=== PATIENT | female | born 1990 | race Caucasian/White ===

== ENCOUNTER 2020-01-19 09:39 | Outpatient (REF) | payer SELFPAY | END 2020-01-19 09:40 | disposition home or self-care (01) | LOC: HO.EHI 09:39 | PROVIDERS: PCP Internal Medicine Sports Medicine; Visit Provider Physician Assistant Medical | DX: Z20.1 Contact with and (suspected) exposure to tuberculosis (principal) ==

== ENCOUNTER 2020-03-04 12:05 | Outpatient (REF) | payer OTHER, SELFPAY ==
[2020-03-04 12:59] LABS: COVID-19 Test Negative (Negative); IDNOW Serial# 55D5AD1C
== END 2020-03-04 12:06 | disposition home or self-care (01) ==
LOC: HO.EMPCOV 12:05
PROVIDERS: Visit Provider Internal Medicine
DX: Z20.828 Contact with and (suspected) exposure to other viral communicable diseases (principal)
CPT/HCPCS: 87635; C9803

== ENCOUNTER 2020-03-18 14:18 | Outpatient (REF) | payer OTHER, SELFPAY ==
[2020-03-18 15:02] LABS: COVID-19 Test Negative (Negative)
== END 2020-03-18 14:19 | disposition home or self-care (01) ==
LOC: HO.EMPCOV 14:18
PROVIDERS: Visit Provider Internal Medicine
DX: Z20.828 Contact with and (suspected) exposure to other viral communicable diseases (principal)
CPT/HCPCS: 87635; C9803

== ENCOUNTER 2020-07-26 08:18 | Outpatient (REF) | payer OTHER, SELFPAY ==
--- NOTE | ~2020-07-26 | US_ITS ---
EXAMINATION: US DIAGNOSTIC ULTRASOUND BREAST, RIGHT CLINICAL INFORMATION: 29-year-old female with pain upper outer right breast and axilla 4-5 months. Also chronic palpable area 9:00 position right breast for approximately one year. No prior breast imaging. No discharge. COMPARISON: None. TECHNIQUE: Ultrasound right breast is targeted to the areas of clinical concern with imaging upper-outer quadrant and axilla. Patient is able to point to area of concern at time of imaging. Grayscale imaging and color Doppler are performed without and with harmonics. FINDINGS: There is no focal suspicious finding. There is no solid mass, architectural abnormality, duct ectasia, or edema in the soft tissue planes. No skin thickening. No lymphadenopathy. At the site of palpable concern mid 9:00 position, a tiny cyst is demonstrated measuring only 0.4 x 0.2 cm. No other ultrasound correlate in this area. Results are discussed with the patient at time of visit. Patient should be managed based on the clinical impression. If clinically indicated, further evaluation may be considered with surgical consult. US/US breast RT limited IMPRESSION: 1. No ultrasound evidence of malignancy or inflammatory changes. 2. Tiny cyst mid 9:00 position 4 x 2 mm. ASSESSMENT: BI-RADS 2: Benign RECOMMENDATION: Patient should be managed based on the clinical impression. If clinically indicated, further evaluation may be considered with surgical consult.
== END 2020-07-26 08:19 | disposition home or self-care (01) ==
LOC: HO.MAMMO 08:18
PROVIDERS: PCP Internal Medicine Sports Medicine; Visit Provider Internal Medicine Medical Oncology
DX: N64.4 Mastodynia (principal)
CPT/HCPCS: 76642

== ENCOUNTER → 2020-07-29 14:56 | Outpatient (BNVA) | payer OTHER, SELFPAY | PROVIDERS: PCP Internal Medicine Sports Medicine; Visit Provider Surgery | DX: N64.4 Mastodynia (principal); N60.11 Diffuse cystic mastopathy of right breast; N60.12 Diffuse cystic mastopathy of left breast | CPT/HCPCS: 99202 ==

== ENCOUNTER 2021-01-29 08:28 | Outpatient (REF) | payer OTHER, SELFPAY ==
[2021-01-29 10:18] LABS: Appearance Urine CLEAR; Color Urine STRAW; Glucose Urine UA NEG (NEG); Leukocyte Esterase Urine 2+ (NEG); Nitrite Urine NEG (NEG); Specific Gravity - Urine <= 1.005 (1.005-1.025); UACC Culture Trigger YES; Urine Blood TRACE (NEG); Urine Ketones NEG (NEG); Urine Protein NEG (NEG-TRACE)
[2021-01-29 10:59] LABS: RBC Urine 0-2 /HPF (0); Squamous Epithelial Cell Urine 3+ /LPF
[2021-01-29 11:00] LABS: Renal Epithelial Cells Urine TRACE /LPF
== END 2021-01-29 08:29 | disposition home or self-care (01) ==
LOC: HO.LAB 08:28
PROVIDERS: PCP Internal Medicine; Visit Provider Internal Medicine Medical Oncology
DX: R30.0 Dysuria (principal)
CPT/HCPCS: 81001; 87086; 87088; 87186

== ENCOUNTER 2021-06-11 05:56 | Emergency (ER) | payer OTHER, SELFPAY ==
--- NOTE | ~2021-06-11 | XR_ITS ---
EXAMINATION: XR CHEST CLINICAL INFORMATION: Chest pain COMPARISON: None TECHNIQUE: Frontal view of the chest was obtained. FINDINGS: The lungs are well expanded. There is no focal consolidation, edema, or effusion. No pneumothorax. The cardiomediastinal silhouette is within normal limits. No acute osseous abnormality. XR/XR chest 1V IMPRESSION: Clear lungs.
--- NOTE | 2021-06-11 05:58 | ECG_ITS ---
Test Reason : CP Blood Pressure : / mmHG Vent. Rate : 083 BPM Atrial Rate : 083 BPM P-R Int : 150 ms QRS Dur : 078 ms QT Int : 368 ms P-R-T Axes : 051 032 085 degrees QTc Int : 432 ms Normal sinus rhythm Normal ECG No previous ECGs available Referred By: Generic ED Physician Electronically Signed By:CARITO BUENROSTRO
[2021-06-11 06:05] VITALS: BP 142/89; PULSE 90; RESP 18; TEMP 36.6; O2SAT 99; BMI 37.2
[2021-06-11 06:14] VITALS: BP 114/69; PULSE 75; RESP 12; TEMP 36.9; O2SAT 98; BMI 37.2
[2021-06-11 06:53] LABS: MANUAL DIFF FLAG NO
--- NOTE | 2021-06-11 06:53 | ED_ITS ---
HPI - Chest Pain General Chief Complaint: Chest Pain Stated Complaint: chest pain Time Seen by Provider: 06/11/21 06:53 Source: patient Mode of arrival: ambulatory Limitations: no limitations History of Present Illness HPI narrative: 30-year-old female came in for evaluation of chest pain. Chest pain started 5 days ago, localized to the lower anterior chest/epigastric area, no radiation, pain described as dull aching pain that is constant for 5 days but wax and wane, then yesterday patient started to have left-sided neck pain radiating down to the left shoulder which increase with neck movement. Pain is associated with dyspnea mostly with exertion, patient declined any recent travel, no recent prolonged immobilization, normal lower extremities swelling or tenderness, no history of DVT/PE. Patient was diagnosed with COVID A days ago no symptoms currently related to COVID no coughing, no fever, no chills. Family history significant for father has history of congestive heart failure and DVT. Past surgical history cholecystectomy. Related Data Home Medications Medication Instructions Recorded Confirmed cholecalciferol (vitamin D3) 50 50 mcg PO DAILY 07/29/20 07/29/20 mcg (2,000 unit) capsule valacyclovir 500 mg tablet 500 mg PO DAILY 07/29/20 07/29/20 Previous Rx's Medication Instructions Recorded omeprazole 40 mg capsule,delayed 40 mg PO DAILY 14 Days #14 cap 06/11/21 release Allergies Allergy/AdvReac Type Severity Reaction Status Date / Time mushroom Allergy Mild Anaphylaxis Verified 07/29/20 15:14 Penicillins Allergy Mild Anaphylaxis Verified 07/29/20 15:14 cephalexin [From Keflex] Allergy Unknown Verified 06/11/21 06:05 Review of Systems Review of Systems: All other systems are reviewed and are negative Constitutional: Reports as per HPI and Reports no additional constitutional complaints Eyes: Reports as per HPI and Reports no additional eye complaints Reports system reviewed and no additional complaints, except as documented Cardiovascular: Reports as per HPI and Reports no additional cardiovascular complaints Respiratory: Reports as per HPI and Reports no additional respiratory complaints Gastrointestinal: Reports as per HPI and Reports no additional gastrointestinal complaints Genitourinary: Reports no additional female genitourinary complaints Musculoskeletal: Reports no additional musculoskeletal complaints Skin/Breast: Reports system reviewed and no additional complaints, except as docu Psychiatric: Reports no additional psychiatric complaints Endocrine: Reports no additional endocrine complaints Hematologic/Lymphatic: Reports no additional hematologic/lymphatic complaints Allergic/Immunologic: Reports no additional allergic/immunologic complaints Reports system reviewed and no additional complaints, except as documented and Reports Abnormal speech present [facility] Past Medical History Medical History Uterine neoplasm Surgical History History of cholecystectomy History of hysterectomy Family History Family History Maternal Grandmother Uterine cancer Breast cancer Paternal Grandmother Uterine cancer Maternal Grandfather Prostate cancer Lung cancer Father No problems noted. Social History Social History Alcohol intake: current Alcohol intake frequency: does not drink Smoked in Last 30 Days: No Use of substances other than those prescribed or required for medical reasons: No Advance Directives: No Advance Directives Information Provided: No Patient : No Physical Exam Vital Signs: Vital Signs: Last Vital Signs Temp 98.3 F 06/11/21 08:47 Pulse 64 06/11/21 08:47 Resp 15 06/11/21 08:47 BP 115/70 06/11/21 08:47 Pulse Ox 97 06/11/21 08:47 BMI result Body Mass Index 37.2 Vital signs have been reviewed as appeared to be correct. Blood pressure normal. Heart rate normal. Respiration rate normal. Temperature normal. Oxygen saturation normal. Appearance: Alert. Oriented X3. No acute distress. Head: Normal external exam. Normocephalic. Atraumatic. No Ordonez signs noted. No raccoon eyes noted Eyes: PERRLA. EOMI. Conjunctiva and sclera normal. Eyelids normal. ENT: TM's Normal. Pharynx normal. Uvula midline. Moist mucous membranes. No trismus noted. No drooling noted. No muffled voice noted. Neck: Normal inspection. Neck supple. FROM. No adenopathy. Thyroid Normal. No meningeal signs. No neck mass noted. CVS: Normal heart rate and rhythm. Heart sound normal. No murmurs noted. Pulses normal throughout. Respiratory: No respiratory distress. Painless inspiration. Breath sounds normal. No wheezes/rales/rhonchi noted. Chest nontender. No accessory muscle usage noted or decreased air movement noted. Abdomen: Soft and nontender. Bowel sounds normal in all 4 quadrants. No distention noted. No organomegaly noted. No visible injury noted. Back: No CVA tenderness. Full range of motion noted. Skin: Skin warm and dry. Normal skin color. Normal skin turgor. No rashes/lesions/lacerations noted. Extremities: No lower extremity edema. Extremities exhibit normal range of motion. Extremities nontender. Neuro: Oriented X 3. Cranial nerve exam: II-XII are grossly intact No motor deficit. No sensory deficit. Reflexes normal. Course Course Course Narrative: Assessment and plan. 30-year-old female came in for wax and wane epigastric/chest pain for 5 days, given patient age and risk factor with negative troponin and normal EKG patient at HEART score of 0, patient also at low risk for PE with negative D-dimer. Chest x-ray also ruled out any acute cardiopulmonary vascular disaster, patient hemodynamically stable. Pain is not reproducible. Not affected by food or drinks either but I expect patient have some sort of GERD or gastritis. Patient status post cholecystectomy. Just elevated LFTs likely due to fatty liver. Will start the patient on Prilosec and follow-up with cutting room supervisor, Tylenol was recommended for the patient to use. MDM - Chest Pain Lab Data Attestation: I reviewed the patient's lab results. Result diagrams: 06/11/21 06:46 06/11/21 07:18 Labs: Lab Results 06/11/21 06/11/21 06/11/21 Range/Units 06:46 06:46 07:05 WBC 7.6 (4.8-10.8) X10*3/uL RBC 4.30 (4.20-5.50) X10*6/uL Hgb 12.9 (12.0-16.0) g/dl Hct 37.1 (37.0-47.0) % MCV 86.3 (80.0-98.0) fL MCH 30.0 (27.0-33.0) pg MCHC 34.8 (31.0-35.0) g/dl RDW 12.3 (11.0-16.0) % Plt Count 289 (160-400) X10*3/uL MPV 10.9 (9.4-12.3) fL Immature Gran % (Auto) 0.3 (0.0-0.4) % Neut % (Auto) 57.2 (45-73) % Lymph % (Auto) 35.0 (20-40) % Weber % (Auto) 5.2 (2-11) % Eos % (Auto) 2.0 (0-4) % Baso % (Auto) 0.3 (0-2) % Lymph # (Auto) 2.6 (1.2-4.9) X10*3/uL Weber # (Auto) 0.4 (0.1-1.2) X10*3/uL Eos # (Auto) 0.2 (0.0-0.4) X10*3/uL Baso # (Auto) 0.0 (0.0-0.2) X10*3/uL Abs Immat Gran (auto) 0.02 (0.00-0.03) X10*3/uL Absolute Neuts (auto) 4.3 (2.0-8.3) x10*3/uL Absolute Nucleated RBC 0.000 (0.0-0.012) X10*3/uL Nucleated RBC % (auto) 0.0 (0.0-0.2) /100WBC D-Dimer High Sensitivty < 150 NG/ML Sodium (135-145) mmol/L Potassium (3.3-5.1) mmol/L Chloride (96-108) mmol/L Carbon Dioxide (22-29) mmol/L Anion Gap (12-20) BUN (9-16) mg/dL Creatinine (0.5-1.4) mg/dL Estim Creat Clear Calc Estimated GFR Random Glucose (60-115) mg/dL Calcium (8.4-10.2) mg/dL Total Bilirubin (0.0-1.0) mg/dL Direct Bilirubin (0.0-0.5) mg/dL AST (5-31) U/L ALT (0-31) U/L Alkaline Phosphatase (39-117) U/L Troponin I High Sens < 3.5 (<3.5-17.0) ng/L Total Protein (6.5-8.0) g/dL Albumin (3.5-5.0) g/dL Lipase (8-78) U/L 06/11/21 Range/Units 07:18 WBC (4.8-10.8) X10*3/uL RBC (4.20-5.50) X10*6/uL Hgb (12.0-16.0) g/dl Hct (37.0-47.0) % MCV (80.0-98.0) fL MCH (27.0-33.0) pg MCHC (31.0-35.0) g/dl RDW (11.0-16.0) % Plt Count (160-400) X10*3/uL MPV (9.4-12.3) fL Immature Gran % (Auto) (0.0-0.4) % Neut % (Auto) (45-73) % Lymph % (Auto) (20-40) % Weber % (Auto) (2-11) % Eos % (Auto) (0-4) % Baso % (Auto) (0-2) % Lymph # (Auto) (1.2-4.9) X10*3/uL Weber # (Auto) (0.1-1.2) X10*3/uL Eos # (Auto) (0.0-0.4) X10*3/uL Baso # (Auto) (0.0-0.2) X10*3/uL Abs Immat Gran (auto) (0.00-0.03) X10*3/uL Absolute Neuts (auto) (2.0-8.3) x10*3/uL Absolute Nucleated RBC (0.0-0.012) X10*3/uL Nucleated RBC % (auto) (0.0-0.2) /100WBC D-Dimer High Sensitivty NG/ML Sodium 138 (135-145) mmol/L Potassium 4.2 (3.3-5.1) mmol/L Chloride 108 (96-108) mmol/L Carbon Dioxide 25 (22-29) mmol/L Anion Gap 9 L (12-20) BUN 10 (9-16) mg/dL Creatinine 0.71 (0.5-1.4) mg/dL Estim Creat Clear Calc 127.2 Estimated GFR > 60 Random Glucose 82 (60-115) mg/dL Calcium 9.0 (8.4-10.2) mg/dL Total Bilirubin 0.4 (0.0-1.0) mg/dL Direct Bilirubin < 0.2 (0.0-0.5) mg/dL AST 109 H (5-31) U/L ALT 157 H (0-31) U/L Alkaline Phosphatase 79 (39-117) U/L Troponin I High Sens (<3.5-17.0) ng/L Total Protein 6.8 (6.5-8.0) g/dL Albumin 4.0 (3.5-5.0) g/dL Lipase 11 (8-78) U/L Imaging Data Chest x-ray: Attestation: I personally reviewed and interpreted this imaging study as follows: Radiologist's impression: Clear lungs. ECG Data ECG #1: Attestation: I personally reviewed and interpreted this ECG as follows: Interpretation: Normal sinus rhythm at 83 beats per minutes, normal axis deviation, normal intervals, no ischemic ST-T changes. Discharge Plan Discharge Clinical Impression: Chest pain, Elevated liver function tests Patient Disposition: Home, Self-Care Instructions: Diet for Stomach Ulcers and Gastritis (ED) Prescriptions: New omeprazole 40 mg capsule,delayed release(DR/EC) 40 mg PO DAILY 14 Days Qty: 14 0RF No Action valacyclovir 500 mg tablet 500 mg PO DAILY 0RF cholecalciferol (vitamin D3) 50 mcg (2,000 unit) capsule 50 mcg PO DAILY 0RF Referrals: Paige Brooke MD [Physician] - 2 days
[2021-06-11 06:58] LABS: Basophils Percent Auto 0.3 % (0-2); Eosinophils Absolute Auto 0.2 X10*3/uL (0.0-0.4); Hematocrit 37.1 % (37.0-47.0); Hemoglobin 12.9 g/dl (12.0-16.0); Imm Gran Abs Auto 0.02 X10*3/uL (0.00-0.03); Imm Gran Pct Auto 0.3 % (0.0-0.4); Lymphocytes Absolute Auto 2.6 X10*3/uL (1.2-4.9); Mean Corpuscular HGB Conc 34.8 g/dl (31.0-35.0); Mean Corpuscular Volume 86.3 fL (80.0-98.0); Mean Platelet Volume 10.9 fL (9.4-12.3); Monocytes Absolute Auto 0.4 X10*3/uL (0.1-1.2); Monocytes Percent Auto 5.2 % (2-11); Neutrophils Absolute Auto 4.3 x10*3/uL (2.0-8.3); Neutrophils Percent Auto 57.2 % (45-73); Platelet Count 289 X10*3/uL (160-400); Red Cell Distribution Width 12.3 % (11.0-16.0); White Blood Count 7.6 X10*3/uL (4.8-10.8)
[2021-06-11 07:01] VITALS: BP 119/72; PULSE 83; RESP 14; TEMP 36.9; O2SAT 99
[2021-06-11] MEDS: Omeprazole 40 MG CAPSULE.DR PO (07:14)
[2021-06-11] MEDS: Magnesium Hydrox/Alum Hydrox 30 ML ORAL.SUSP PO (07:15)
[2021-06-11 07:26] LABS: D Dimer High Sensitivity < 150 NG/ML
[2021-06-11 07:36] LABS: Troponin-I High Sensitivity < 3.5 ng/L (<3.5-17.0)
[2021-06-11 07:49] LABS: Anion Gap 9 (12-20); Blood Urea Nitrogen 10 mg/dL (9-16); Carbon Dioxide 25 mmol/L (22-29); Chloride 108 mmol/L (96-108); Creatinine Clr Calc Pharmacy 127.2; Estimated Glomerular Filt Rate > 60; Glucose Random 82 mg/dL (60-115); Potassium 4.2 mmol/L (3.3-5.1); Sodium 138 mmol/L (135-145)
[2021-06-11 08:47] VITALS: BP 115/70; PULSE 64; RESP 15; TEMP 36.8; O2SAT 97
[2021-06-11 09:19] LABS: Alanine Aminotransferase 157 U/L (0-31); Alkaline Phosphatase 79 U/L (39-117); Aspartate Amino Transferase 109 U/L (5-31); Bilirubin Direct < 0.2 mg/dL (0.0-0.5); Bilirubin Total 0.4 mg/dL (0.0-1.0); Lipase 11 U/L (8-78); Total Protein 6.8 g/dL (6.5-8.0)
== END 2021-06-11 10:11 | disposition home or self-care (01) ==
PROVIDERS: Emergency Provider Emergency Medicine
DX: R07.9 Chest pain, unspecified (principal); R79.89 Other specified abnormal findings of blood chemistry
CPT/HCPCS: 36415; 71045; 80048; 80076; 83690; 84484; 85025; 85379; 93005; 99284

== ENCOUNTER 2021-06-13 12:20 | Outpatient (REF) | payer OTHER, SELFPAY ==
--- NOTE | ~2021-06-13 | US_ITS ---
EXAMINATION: US ABDOMEN COMPLETE CLINICAL INFORMATION: Abdominal pain. Elevated liver function tests.. COMPARISON: None TECHNIQUE: Real-time imaging of the abdominal viscera. FINDINGS: PANCREAS: Normal. ABDOMINAL AORTA: The proximal, mid, and distal segments are normal in caliber. INFERIOR VENA CAVA: Visualized portions are normal. LIVER: The liver is normal in size. The liver contour is normal. Parenchymal echogenicity is normal. No focal hepatic lesion. There is question of mild intrahepatic biliary duct dilatation, particularly in the left lobe. GALLBLADDER: Surgically removed COMMON BILE DUCT: Normal in caliber measuring 0.4 cm in diameter. RIGHT KIDNEY: Normal. No hydronephrosis. No renal calculi or focal parenchymal lesions. The kidney measures 10.8 cm in maximum dimension. LEFT KIDNEY: Normal. No hydronephrosis. No renal calculi or focal parenchymal lesions. The kidney measures 11.2 cm in maximum dimension. SPLEEN: Normal. The spleen measures 12.2 cm in maximum dimension. FREE FLUID: None. US/US abdomen complete IMPRESSION: Question mild intrahepatic biliary duct dilatation, particularly in the left lobe of the liver. Postcholecystectomy.
[2021-06-13 14:12] LABS: INTERNATIONAL NORM RATIO 1.2 (0.9-1.1); Prothrombin Time 13.1 SEC (9.9-13.0)
[2021-06-13 14:32] LABS: C Reactive Protein 0.64 mg/dL (< or = 0.50)
[2021-06-13 14:49] LABS: Ferritin 177 ng/mL (10-122)
[2021-06-13 15:04] LABS: Folate 8.2 ng/mL (> or = 4.0); Vitamin B12 726 pg/mL (200-900)
[2021-06-14 10:32] LABS: Alanine Aminotransferase 143 U/L (0-31); Albumin Level 4.5 g/dL (3.5-5.0); Alkaline Phosphatase 94 U/L (39-117); Aspartate Amino Transferase 68 U/L (5-31); Bilirubin Direct 0.3 mg/dL (0.0-0.5); Bilirubin Total 0.8 mg/dL (0.0-1.0); Total Protein 7.6 g/dL (6.5-8.0)
[2021-06-16 04:07] LABS: HBS Num1 > 1000.00 mIU/mL (0-7.99); HBc Num1 0.06 S/CO (0.00-0.79); Hepatitis B Core Antibody Nonreactive (Nonreactive); ~HepC Num1 0.06 S/CO (0.00-0.79); ~Hepatitis B Surface Antibody REACTIVE (Nonreactive); ~Hepatitis C Antibody Nonreactive (Nonreactive)
[2021-06-16 04:11] LABS: HBsAGNum1 0.23 S/CO (0.00-0.99); HIV AB/AG Nonreactive (Nonreactive); HIV Num 1 0.08 S/CO (0.00-0.99); Hepatitis B Surface Antigen Negative (Negative)
[2021-06-16 11:41] LABS: Transglutaminase Ab IgG <1.0 U/mL; Transglutaminase IgA <1.0 U/mL
[2021-06-16 13:31] LABS: Ceruloplasmin 33 mg/dL (18-53)
[2021-06-17 13:16] LABS: Alpha Fetoprotein 5.1 ng/mL
[2021-06-17 15:06] LABS: Mitochondrial Antibodies NEGATIVE (NEGATIVE)
[2021-06-18 00:16] LABS: Smooth Muscle Antibody <20 U (<20)
[2021-06-18 00:32] LABS: FIB-ALT 126 U/L (6-29); FIB-Alpha-2-Macroglobulin 190 mg/dL (106-279); FIB-Apolipoprotein A1 156 mg/dL (101-198); FIB-GGT 62 U/L (3-50); FIB-Haptoglobin 174 mg/dL (43-212); FIB-Total Bilirubin 0.7 mg/dL (0.2-1.2); Liver Fibrosis Score 0.13; Liver Fibrosis Stage F0; Nec Inflam Act Grade A2
[2021-06-18 04:05] LABS: Hepatitis A Antibody IgM 0.18 Index (0-0.79); ~Hepatitis A Antibody IgM Nonreactive (Nonreactive)
[2021-06-18 12:06] LABS: Vitamin D 25-OH, D2 <4 ng/mL; Vitamin D 25-OH, D3 34 ng/mL; Vitamin D 25-OH, Total 34 ng/mL (30-100)
== END 2021-06-13 12:21 | disposition home or self-care (01) ==
LOC: HO.LAB 12:20
PROVIDERS: Visit Provider Nurse Practitioner Family
DX: R74.8 Abnormal levels of other serum enzymes (principal); R79.89 Other specified abnormal findings of blood chemistry; E55.9 Vitamin D deficiency, unspecified; R19.7 Diarrhea, unspecified; R14.0 Abdominal distension (gaseous); R10.11 Right upper quadrant pain; K58.9 Irritable bowel syndrome, unspecified; K58.2 Mixed irritable bowel syndrome; R10.13 Epigastric pain; R47.01 Aphasia
CPT/HCPCS: 36415; 76700; 80076; 81596; 82105; 82306; 82390; 82607; 82728; 82746; 84443; 85610; 86015; 86140; 86255; 86256; 86364; 86704; 86706; 86709; 86803; 87340; 87389; 99202

== ENCOUNTER 2021-06-30 08:30 | Outpatient (REF) | payer OTHER, SELFPAY ==
[2021-07-01 15:05] LABS: H Pylori Breath Test Negative (Negative)
== END 2021-06-30 08:31 | disposition home or self-care (01) ==
LOC: HO.LNP 08:30
PROVIDERS: Visit Provider Nurse Practitioner Family
DX: A04.8 Other specified bacterial intestinal infections (principal)
CPT/HCPCS: 83013; 99211

== ENCOUNTER 2021-07-03 14:38 | Outpatient (REF) | payer OTHER, SELFPAY ==
[2021-07-12 19:36] LABS: Pancreatic Elastase-1 >500 mcg/g
== END 2021-07-03 14:39 | disposition home or self-care (01) ==
LOC: HO.LNP 14:38
PROVIDERS: Visit Provider Nurse Practitioner Family
DX: R19.7 Diarrhea, unspecified (principal)
CPT/HCPCS: 82656

== ENCOUNTER → 2021-07-21 16:03 | Outpatient (BNVA) | payer OTHER, SELFPAY | PROVIDERS: Visit Provider Nurse Practitioner Family | DX: K58.2 Mixed irritable bowel syndrome (principal); R10.13 Epigastric pain; R14.0 Abdominal distension (gaseous); R74.01 Elevation of levels of liver transaminase levels | CPT/HCPCS: 99212 ==

== ENCOUNTER 2021-08-11 07:24 | Outpatient (REF) | payer OTHER, SELFPAY ==
--- NOTE | ~2021-08-11 | CT_ITS ---
EXAMINATION: CT ABDOMEN AND PELVIS WITH CONTRAST CLINICAL INFORMATION: Abdominal pain COMPARISON: Previous abdominal ultrasound May 2021 TECHNIQUE: Multidetector volumetric images were obtained from the superior aspect of the liver through the pubic symphysis following administration 85 mL of Omnipaque 350 intravenous contrast. Sagittal and coronal reformatted images were obtained on the technologist's workstation. Oral contrast: Yes This CT examination was performed using dose optimization techniques as appropriate, variously including the following: *Automated exposure control *Adjustment of mA and/or kV according to patient size (this includes techniques or standardized protocols for targeted exams where dose is matched to indication/reason for exam; i.e. extremities or head) *Use of iterative reconstruction technique DLP: 602 mGy-cm FINDINGS: LUNG BASES: The visualized lung bases are unremarkable. LIVER, GALLBLADDER, AND BILIARY TREE: The liver is normal in size, shape, and attenuation. No focal hepatic lesion or biliary ductal dilatation is present. The gallbladder has been removed. PANCREAS: Unremarkable. SPLEEN: Unremarkable. ADRENAL GLANDS: Unremarkable. KIDNEYS AND URETERS: The kidneys are normal in size, shape, and attenuation. No hydronephrosis, hydroureter, or calculi seen. No perinephric stranding. BLADDER: Unremarkable. GASTROINTESTINAL TRACT: There is stool throughout the colon questionable for constipation. The small and large bowel are unremarkable. Unremarkable. The appendix is unremarkable. ABDOMINAL WALL: There is a small umbilical hernia containing fat. LYMPH NODES: Normal. VASCULAR: Unremarkable. PELVIC VISCERA: The uterus has been removed. The ovaries are normal. OSSEOUS STRUCTURES: Unremarkable. CT/CT abdomen pelvis w con IMPRESSION: Stool throughout the colon questionable for constipation. Umbilical hernia containing fat. Otherwise unremarkable exam. Fleischner guidelines were followed.
[2021-08-11] MEDS: Barium Sulfate Oral (Vanilla) 450 ML ORAL.SUSP 900 ML PO (09:48)
[2021-08-11] MEDS: iohexoL 350 MG/ML 100 ML INFUS..BTL IV (09:49)
== END 2021-08-11 07:25 | disposition home or self-care (01) ==
LOC: HO.CT 07:24
PROVIDERS: Visit Provider Nurse Practitioner Family
DX: R10.9 Unspecified abdominal pain (principal)
CPT/HCPCS: 74177; Q9967

== ENCOUNTER 2021-08-20 11:21 | Day surgery (SDC) | payer OTHER, SELFPAY ==
--- NOTE | 2021-08-19 12:41 | P.CONAN_ITS ---
Documented by User: Kacy Oakley NP 08/19/21 12:43 HPI - Anesthesia Eval Consult details Narrative: 30yo F for Upper Endoscopy and Colonoscopy PMFSH Active Problems Active Problems: All Active Problems (Updated 08/14/21 @ 16:24 by Josefina Vincent, LEILA) Mastodynia (Acute) Fibrocystic breast changes of both breasts (Acute) Past Medical History Medical History IBS (irritable bowel syndrome) Uterine neoplasm Family History Family History Maternal Grandmother Uterine cancer Breast cancer Paternal Grandmother Uterine cancer Maternal Grandfather Prostate cancer Lung cancer Father No problems noted. Surgical History Surgical History (Updated 08/20/21 @ 12:08 by Camille Marshall RN) H/O cervical discectomy History of cholecystectomy History of hysterectomy Social History Social History Alcohol intake: current Alcohol intake frequency: does not drink Patient Tobacco Use Status: Never used Tobacco Use of substances other than those prescribed or required for medical reasons: No Are you DNR?: No Advance Directives: No Advance Directives Information Provided: Yes Recently lost weight without trying: No Patient : No (hysterectomy) Meds Allergies Allergy/AdvReac Type Severity Reaction Status Date / Time mushroom Allergy Mild Anaphylaxis Verified 07/21/21 16:09 Penicillins Allergy Mild Anaphylaxis Verified 07/21/21 16:09 cephalexin [From Keflex] Allergy Unknown Verified 07/21/21 16:09 Home Medications Medication Instructions Recorded Confirmed Last Taken Type cholecalciferol (vitamin D3) 50 50 mcg PO DAILY 07/29/20 08/14/21 Unknown History mcg (2,000 unit) capsule valacyclovir 500 mg tablet 500 mg PO DAILY 07/29/20 08/14/21 Unknown History Exam Exam Date and Time: August 19, 2021 1241 Pertinent Lab Results Pertinent Lab Results: Laboratory Tests 06/11/21 06/11/21 06:46 07:18 WBC 7.6 Hgb 12.9 Hct 37.1 Plt Count 289 Sodium 138 Potassium 4.2 Chloride 108 Carbon Dioxide 25 BUN 10 Creatinine 0.71 Narrative Narrative: EKG 05/2021 Vent. Rate : 083 BPM ? ? Atrial Rate : 083 BPM ?? P-R Int : 150 ms? QRS Dur : 078 ms ? ? QT Int : 368 ms ? ? ? P-R-T Axes : 051 032 085 degrees ?? QTc Int : 432 ms ? Normal sinus rhythm Normal ECG No previous ECGs available Assessment and Plan Assessment Anesthesia Assessment: Chart Reviewed Documented by User: Moraima Mariee MD 08/20/21 12:31 [facility] Past Medical History Medical History IBS (irritable bowel syndrome) Uterine neoplasm Family History Family History Maternal Grandmother Uterine cancer Breast cancer Paternal Grandmother Uterine cancer Maternal Grandfather Prostate cancer Lung cancer Father No problems noted. Family history of problems with anesthesia: No Surgical History Surgical History (Updated 08/20/21 @ 12:08 by Camille Marshall RN) H/O cervical discectomy History of cholecystectomy History of hysterectomy History of Problems with Anesthesia: No Social History Social History Alcohol intake: current Alcohol intake frequency: does not drink Patient Tobacco Use Status: Never used Tobacco Use of substances other than those prescribed or required for medical reasons: No Are you DNR?: No Advance Directives: No Advance Directives Information Provided: Yes Recently lost weight without trying: No Patient : No (hysterectomy) Meds Allergies Allergy/AdvReac Type Severity Reaction Status Date / Time mushroom Allergy Mild Anaphylaxis Verified 07/21/21 16:09 Penicillins Allergy Mild Anaphylaxis Verified 07/21/21 16:09 cephalexin [From Keflex] Allergy Unknown Verified 07/21/21 16:09 Home Medications Medication Instructions Recorded Confirmed Last Taken Type cholecalciferol (vitamin D3) 50 50 mcg PO DAILY 07/29/20 08/14/21 Unknown History mcg (2,000 unit) capsule valacyclovir 500 mg tablet 500 mg PO DAILY 07/29/20 08/14/21 Unknown History Exam Airway Mallampati Class: II TM Dist: >3cm Neck ROM: Full Heart: rrr Lungs: cta Assessment and Plan Assessment Anesthesia Assessment: Anesthesia Plan Discussed and Chart Reviewed Final Anesthetic Review Family History of Problems with Anesthesia: No History of Problems with Anesthesia: No NPO: Yes ASA Class: II Final Preanesthetic Review: No Changes in Pt Med Stat, Meds/Allgs Chart Reviewed and Consent Obtained/Reviewed Patient Risk: Intermediate Procedure Risk: Intermediate Anesthetic Plan Anesthetic Plan: MAC: Disposition: Standard PACU
--- NOTE | 2021-08-20 12:04 | P.HPSUR_ITS ---
Pre-Procedural Eval Section A Date of Service: 08/20/21 Section B Chief Complaint: reflux disease,rectal bleeding Details of Present Illness: FH : uterine cancer Relevant Family History (Specify if Yes): Yes Relevant Social History: None Present Medications: see Short Stay Collaborative assessment Medical History: Significant History (IBS (irritable bowel syndrome) Uterine neoplasm) History of Previous Operations: Relevant previous surgery/procedure and date(s) (H/O cervical discectomy History of cholecystectomy History of hysterectomy) Allergies: Allergies Allergy/AdvReac Type Severity Reaction Status Date / Time mushroom Allergy Mild Anaphylaxis Verified 07/21/21 16:09 Penicillins Allergy Mild Anaphylaxis Verified 07/21/21 16:09 cephalexin [From Keflex] Allergy Unknown Verified 07/21/21 16:09 Review of Systems Sugical H&P ROS: Negative: Constitution, Cardiovascular, Respiratory, Neurological, Psychiatric, Hem-Onc, Allergic/Immunologic, Gastrointestinal, Genitourinary, Musculoskeletal, Integumentary, Endocrine and E yes/Ears/Nose/Throat Exam Surgical H&P Exam: Normal: HEENT, Normal: Heart, Normal: Lungs, Normal: Extremities, Normal: Abdomen, Normal: Skin and Normal: Neurological Plan Diagnosis/Plan: Unchanged I have reviewed the history and physical and performed a pertinent physical examination on my patient. No changes have occurred unless specified.
[2021-08-20 12:18] VITALS: BP 108/76; PULSE 97; RESP 18; TEMP 36.8; O2SAT 97
[2021-08-20] MEDS: Lactated Ringers 1,000 ML 100 ML IVCONT (12:21)
[2021-08-20 13:04] VITALS: BMI 37.2
--- NOTE | 2021-08-20 13:05 | PM.OP ---
Brief Operative Note Date of Service: 08/20/21 Pre-op diagnosis: rectal bleeding, GERD Post-op diagnosis: same Procedure: see op note Surgeon: Paige Brooke MD Anesthesia: MAC Was an Education Trainer used for this Procedure?: No Estimated blood loss (mL): 0 Condition: stable Disposition: PACU
--- NOTE | 2021-08-20 13:06 | P.OP_ITS ---
Operative Note Operative Note Date of Service: 08/20/21 Narrative: Operative Information Procedure Description: EGD, Colonoscopy Indication: rectal bleeding, GERD, abdominal pain Anesthesia: MAC FLEXIBLE TRANSORAL UPPER GASTROINTESTINAL ENDOSCOPY AND COLONOSCOPY PROCEDURE NOTE UPPER ENDOSCOPY Consent: Indications for the procedure and potential complications of bleeding, perforation, reaction to medications and missed diagnosis were discussed with the patient and informed consent was obtained. Instrument: Olympus GIF H 190 J mid size upper endoscope Monitoring: Vital signs and clinical assessment, continuous EKG monitoring, Pulse oximetry, Carbon Dioxide monitoring and blood pressure monitoring were done throughout the procedure. Procedure: The patient was placed in the left lateral decubitis position and pre-procedure medications were administered and a bite block was placed. The endoscope was inserted into the mouth and advanced under direct vision to the third part of duodenum. A careful inspection was made as the upper endoscope was withdrawn including a retroflexed examination of the proximal stomach; Findings and interventions are described below. Findings: Larynx:normal Esophagus: GE junction at 38 cm, diaphragm hiatus at 38 cm, LA grade A erosive esophagitis, bx taken, also random esophagus bx taken as well Stomach: Normal mucosa. Biopsies were obtained. Grade 2 flap valve on retroflexed examination of the cardia. Duodenum: Normal bulb and descending duodenum, bx taken Intervention: Biopsies as noted above COLONOSCOPY Instrument: Olympus variable stiffness pediatric scope 190L Colonoscopy Monitoring: Vital signs and clinical assessment, continuous EKG monitoring, Pulse oximetry, Carbon Dioxide monitoring and blood pressure monitoring were done throughout the procedure. Colon withdrawal time was 20 minutes. Procedure: The patient was placed in the left lateral decubitis position and pre-procedure medications were administered. After a digital rectal examination of the ano-rectum, the video colonoscope was inserted into the rectum and advanced through the colon to the cecum/TI. The colonoscope was slowly withdrawn in a retrograde panoramic fashion and the colon mucosa was carefully examined including a retroflexed view of the rectum. Findings and interventions are described below. Procedure Difficulty: easy Findings: Random colon bx taken Terminal Ileum-normal, bx taken Cecum:normal Ascending Colon: 12 mm sessile polyp with fecal cap noted. ORISE injected to lift then removed wt cold snare. Transverse Colon -normal Descending Colon:normal Sigmoid Colon: normal Rectum: Retroflexion with small internal hemorrhoids, grade I with some red sunshine suggestive of recent bleeding Anorectum - normal Colon preparation: [place] Bowel Preparation Scale Right colon; 2 Transverse colon: 3 Left colon; 3 (0 = Unprepared colon segment with mucosa not seen due to solid stool that cannot be cleared. 1 = Portion of mucosa of the colon segment seen, but other areas of the colon segment not well seen due to staining, residual stool and/or opaque liquid. 2 = Minor amount of residual staining, small fragments of stool and/or opaque liquid, but mucosa of colon segment seen well. 3 = Entire mucosa of colon segment seen well with no residual staining, small fragments of stool or opaque liquid) Impression and Post Procedure Diagnosis: Endoscopy Findings: erosive esophagitis, LA grade A Colonoscopy Findings: polyp internal hemorrhoids Plan: Await Pathology results Repeat Colonoscopy in 3-5 years with what appears to be a serrated polyp clinically or earlier if clinically indicated High fiber diet leaflet avoid straining at stool, epsom salts and sitz bath, anusol supps or cream review PPI compliance Above findings were reviewed with the patient and relevant handouts were provided if indicated.
[2021-08-20 14:08] VITALS: BP 106/61; PULSE 81; RESP 16; TEMP 36.2; O2SAT 98
[2021-08-20 14:23] VITALS: BP 113/70; PULSE 69; RESP 16; TEMP 36.8; O2SAT 99
--- NOTE | 2021-08-20 14:25 | PC.NURSE ---
MD MARTINEZ BY BEDSIDE SPEAKING TO PATIENT. NO VOMITTING.
[2021-08-20 14:38] VITALS: BP 114/69; PULSE 66; RESP 16; O2SAT 99
--- NOTE | 2021-08-20 14:45 | PC.NURSE ---
PTIENT SITTING UP IN BED. DECREASING NAUSEA. USING CELL PHONE.
[2021-08-20 14:53] VITALS: BP 107/72; PULSE 60; RESP 16; TEMP 36.8; O2SAT 98
--- NOTE | 2021-08-20 14:58 | PC.NURSE ---
SITING UP IN BED. DENIES NAUSEA. PHENERGAN FINISHED.
== END 2021-08-20 15:37 ==
LOC: HO.SSS 11:21
PROVIDERS: Visit Provider Internal Medicine Gastroenterology
PROC: (CPT 45385; principal; 2021-08-20 12:50)
DX: K62.5 Hemorrhage of anus and rectum (principal); D12.2 Benign neoplasm of ascending colon; K64.0 First degree hemorrhoids; K58.2 Mixed irritable bowel syndrome; K21.9 Gastro-esophageal reflux disease without esophagitis; K20.80 Other esophagitis without bleeding; K44.9 Diaphragmatic hernia without obstruction or gangrene; R74.01 Elevation of levels of liver transaminase levels; Z79.899 Other long term (current) drug therapy; Z88.1 Allergy status to other antibiotic agents; Z88.0 Allergy status to penicillin; Z90.49 Acquired absence of other specified parts of digestive tract; Z90.710 Acquired absence of both cervix and uterus
CPT/HCPCS: 45385; 45381; 43239; 88305; 88342; J2405; J2550

== ENCOUNTER 2021-10-27 12:45 | Outpatient (REF) | payer OTHER, SELFPAY ==
[2021-10-27 13:44] LABS: Alanine Aminotransferase 13 U/L (0-31); Albumin Level 4.5 g/dL (3.5-5.0); Alkaline Phosphatase 63 U/L (39-117); Aspartate Amino Transferase 13 U/L (5-31); Bilirubin Direct 0.3 mg/dL (0.0-0.5); Bilirubin Total 0.6 mg/dL (0.0-1.0); Blood Urea Nitrogen 7 mg/dL (9-16); Estimated Glomerular Filt Rate > 60; Total Protein 7.1 g/dL (6.5-8.0)
== END 2021-10-27 12:46 | disposition home or self-care (01) ==
LOC: HO.LAB 12:45
PROVIDERS: PCP Internal Medicine; Visit Provider Nurse Practitioner Family
DX: R10.13 Epigastric pain (principal); K58.2 Mixed irritable bowel syndrome; K59.04 Chronic idiopathic constipation; Z90.49 Acquired absence of other specified parts of digestive tract; Z90.710 Acquired absence of both cervix and uterus
CPT/HCPCS: 36415; 80076; 82565; 84520; 99212

== ENCOUNTER → 2023-11-30 14:51 | Outpatient (BNVA) | payer SELFPAY | PROVIDERS: PCP Internal Medicine | DX: Z02.83 Encounter for blood-alcohol and blood-drug test (principal) ==

== ENCOUNTER 2024-12-13 14:04 | Outpatient (AMB) | payer OTHER, MEDICAID, SELFPAY ==
--- NOTE | 2024-12-13 14:10 | A.OFFVIS_ITS ---
Vital Signs 12/13/24 14:19 Height 5 ft 3 in Weight 214 lb BMI 37.9 BP 108/70 Blood Pressure Location Rt brachial Position Sitting Pulse 78 Pulse Source Pulse Oximeter Pulse Oximetry (%) 100 Oxygen Delivery Method Room Air Intake Visit Reasons: 30m [facility] 10/2021. Recall colo. Polyposis. Intake Note: Est pt for recall colo per polyposis. [facility] 10/2021. CC: C.O. BRB + DRB per rectum, hematochezia + melena, LLQ pain, GERD + Nausea w/o vomiting. Director Hris Required: No Accompanied by: Self / Same As Patient Allergies mushroom Allergy (Mild, Verified 12/13/24 14:10) Anaphylaxis Penicillins Allergy (Mild, Verified 12/13/24 14:10) Anaphylaxis cephalexin (From Keflex) Allergy (Verified 12/13/24 14:10) Unknown HPI HPI 30m [facility] 10/2021. Recall colo. Polyposis.: Details: COLONOSCOPY AUGUST 2021 COLONOSCOPY Findings: Random colon bx taken Terminal Ileum-normal, bx taken Cecum:normal Ascending Colon: 12 mm sessile polyp with fecal cap noted. ORISE injected to lift then removed wt cold snare. Transverse Colon -normal Descending Colon:normal Sigmoid Colon: normal Rectum: Retroflexion with small internal hemorrhoids, grade I with some red sunshine suggestive of recent bleeding Anorectum - normal Impression and Post Procedure Diagnosis: Endoscopy Findings: erosive esophagitis, LA grade A Colonoscopy Findings: polyp internal hemorrhoids Plan: Await Pathology results Repeat Colonoscopy in 3-5 years with what appears to be a serrated polyp clinically or earlier if clinically indicated High fiber diet leaflet avoid straining at stool, epsom salts and sitz bath, anusol supps or cream review PPI compliance ADDENDUMThere was some collapse of the distal sigmoid, prob from prior pelvic surgery, may be causing constipation, should be on high fiebr diet and drink plenty of fluids. If sx persist then can consider anal rectal manometry or MR defecography to r/o rectocele, pelvic floor dysfunction? PATHOLOGY RESULTS Diagnosis A.? Duodenum, biopsy:? Duodenal mucosa within normal limits. B.? Stomach, biopsy:? Oxyntic mucosa with mild chronic inactive inflammation; no Helicobacter organisms seen. C.? GE junction, biopsy: - Cardiofundic-type mucosa with moderate chronic inactive inflammation; no intestinal metaplasia seen. - Active esophagitis (rare eosinophils). D.? Esophagus, random, biopsy:? Squamous epithelium within normal limits; no inflammation seen. E.? Terminal ileum, biopsy:? Terminal ileal mucosa within normal limits; mast cells number up to 52 per high powered field. F. ? Colon, random, biopsy:? Colonic mucosa within normal limits. G.? Colon, ascending, polypectomy:? Fragments of sessile serrated polyp. LAST VISIT IBS (irritable bowel syndrome) Patient continues to have a postprandial abdominal bloating with occasional loose stools. However patient reports that she does not empty her bowels completely. She will be constipated for few days. HIDA scan discussed with patient patient can continue fiber therapy once or twice a day. I will start her on a bisacodyl tablets she can take to every evening Postprandial epigastric pain Postprandial epigastric discomfort continue taking pantoprazole. Patient reports that since she started taking pantoprazole her symptoms are improved. Discussed with patient avoiding dietary triggers and late night snacking. Staying upright for minimal 3 hours after meals. Abdominal bloating Postprandial abdominal bloating discussed with patient dietary triggers. Avoiding food that is makes her feel bloated. Patient tried following FODMAP diet. Continue trying to eliminate food that is making her feel bloated. Patient will need to move her bowels better. Possible gas trapping due to being constipated. Chronic idiopathic constipation Constipation with occasional loose stools postprandially. Patient will be starte d on Dulcolax tablets. Possibility that her constipation is related to partial collapse of her distal sigmoid colon. Will send patient for more testing to rule out pelvic floor dysfunction. I will see patient in 2 months, sooner on as needed basis. Patient is agreeable to this plan and verbalizes understanding of instructions. She was given the opportunity to ask questions and all questions answered. ? Thank you for allowing me to participate in her care Plan Orders Orders Liver Panel Today R10.9 Medications New bisacodyl 10 mg (2 x 5 mg) PO BEDTIME 180 tabs 1RF K59.00 TODAY'S VISIT: Patient is here today to reestablish care. Had colonoscopy in August of 2021 that showed fragments of sessile serrated polyps. Here to repeat colonoscopy and upper endoscopy. Patient continues to have epigastric pain and acid reflux. States that she is taking pantoprazole, for the most part patient reports that it worse, however every few days or so she will have reflux. Patient reports occasional constipation. Infrequent diarrhea maybe couple times a month or so. Bowel movements every 3-4 days for the most part. Patient states that she tried fiber and probiotics and states that it was not working for her. Patient is from levothyroxine together with pantoprazole in the morning. Patient denies any nausea or vomiting. Reports occasional dyspepsia without dysphagia or odynophagia. Denies melena, hematochezia, unintentional weight loss or ribbon like stools. Patient was started on Zepbound back in August. Patient reports that she lost over 50 lb so far [facility] Medical History IBS (irritable bowel syndrome) Uterine neoplasm Surgical History Hx of esophagogastroduodenoscopy Hx of colonoscopy H/O cervical discectomy History of hysterectomy History of cholecystectomy Family History Maternal Grandmother Uterine cancer Breast cancer Paternal Grandmother Uterine cancer Maternal Grandfather Prostate cancer Lung cancer Father No problems noted. Social History Alcohol intake: current Alcohol intake frequency: does not drink Patient Tobacco Use Status: Never used Tobacco Female Reproductive History Menstrual Age of Menarche: 9 Review of Systems Const Denies weight gain and Denies weight loss ENT Reports no additional complaints, Denies dysphagia and Denies odynophagia Card Reports no additional complaints Resp Reports no additional complaints GI Reports abdominal pain (epigastric), Denies belching, Denies melena, Reports bloating, Denies change in bowel habits, Reports constipation, Denies dysphagia, Denies excessive flatus, Denies dyspepsia, Denies heartburn, Denies diarrhea, Denies loose stools, Reports nausea, Denies odynophagia and Denies vomiting Reports no additional complaints Musc Reports no additional complaints Neuro Reports no additional complaints Psych Reports no additional complaints Endo Reports no additional complaints Physical Exam Const General: healthy appearing, no acute distress and well developed Nutritional Appearance: well nourished Orientation/consciousness: patient oriented x3 Resp Effort & Inspection: normal respiratory effort, able to speak in complete sentences, no tracheal deviation and symmetric chest movement Auscultation: clear to auscultation bilaterally Cardio Rate: regular rate GI Inspection: Yes normal to inspection, No distended and Yes obesity Palpation (GI): Soft to palpation, not firm, nontender and No hepatosplenomegaly present Auscultation: normal bowel sounds General: Yes no CVA tenderness Back/Spine/Pelvis Back: no CVA tenderness Skin General skin exam: elasticity normal, turgor normal and dry skin Neuro General: patient oriented x3 Psych Appearance: grossly normal Mental Status: mental status grossly normal Assessment & Plan Assessment & Plan (1) IBS (irritable bowel syndrome): Code(s): K58.9 - Irritable bowel syndrome, unspecified Category: Medical Qualifiers: Irritable bowel syndrome type: with constipation Qualified Code(s): K58.1 - Irritable bowel syndrome with constipation (2) Postprandial epigastric pain: Code(s): R10.13 - Epigastric pain (3) Abdominal bloating: Code(s): R14.0 - Abdominal distension (gaseous) (4) Chronic idiopathic constipation: Code(s): K59.04 - Chronic idiopathic constipation (5) Screen for colon cancer: Code(s): Z12.11 - Encounter for screening for malignant neoplasm of colon Plan Will check transglutaminase, thyroid study, vitamin-D, B12, folate, liver panel and lipase. Patient will continue taking pantoprazole daily. Avoid dietary triggers and late night snacking. Patient was encouraged to take her levothyroxine upon awakening and wait an hour before she takes her pantoprazole. She can take famotidine as needed. Patient was encouraged to take MiraLax with fiber in the morning after breakfast. Increase fluid intake and activity to promote better bowel motility. She can also try prunes. She may need a stimulant if she will have trouble going. Patient will call us. She will follow-up with us in 2-3 months. Message sent to surgical schedulers to call patient for procedure. Patient is agreeable to current plan of care and verbalizes understanding of instructions. She was given the opportunity to ask questions and all questions answered. Thank you for allowing me to participate in her care Orders: Orders Transglutaminase Ab IgG Today R10.9 - Unspecified abdominal pain TSH reflex Free T4 Today K59.00 - Constipation, unspecified Vitamin D 25-OH (D2 and D3) Today E55.9 - Vitamin D deficiency, unspecified Transglutaminase IgA Today R10.9 - Unspecified abdominal pain Vitamin B12 and Folate Today R19.7 - Diarrhea, unspecified Liver Panel Today R74.01 - Elevation of levels of liver transaminase levels Lipase Today R10.9 - Unspecified abdominal pain Medications: New famotidine (Pepcid) 20 mg PO BEDTIME 30 tabs 3RF K21.9 - Gastro-esophageal reflux disease without esophagitis Coding Level of Care Code New Pt Level 4 (18535) Diagnoses Irritable bowel syndrome with constipation K58.1 Irritable bowel syndrome type: with constipation Postprandial epigastric pain R10.13 Abdominal bloating R14.0 Chronic idiopathic constipation K59.04 Screen for colon cancer Z12.11 Time Spent (min) 50 Comment 35 minutes spent with patient and additional 15 minutes spent reviewing her records
[2024-12-13 14:19] VITALS: BP 108/70; PULSE 78; O2SAT 100; BMI 37.9
--- OUTSIDE RECORDS SUMMARY | 2024-12-13 15:01 | XMS_ITS | Encounter Summary ---
Author Organization [employer] Address [address] [facility] [address] [place] [address] Care Team Providers Care Packaging Machine Supplies Distributor Name Role Phone Clari Bauman FILM WAXER Primary Care Provider Unavailable Ginny Christopher Unavailable Unavailable Cami Raymond MD Unavailable [phone] Lilly Arndt MD Unavailable uYmiko Costa RD Unavailable Unavailable Cami Raymond MD Primary Care Provider [phone] Shae Ayers Unavailable Unavailable Encounter Details Date Type Department Care Team (Late st Contact Info) Description 04/23/2022 Abstract [place] [facility] [address] [place] [address] Melodie Menendez FNP Social History Tobacco Use Types Packs/Day Years Used Date Smoking Tobacco: Never Smokeless Tobacco: Never Alcohol Use Standard Drinks/Week Comments Never 0 (1 standard drink = 0.6 oz pur e alcohol) PHQ-2 Answer Date Recorded Patient Health Questionnaire-2 Score 0 03/30/2022 Comments Unknown Sex and Gender Information Value Date Recorded Sex Assigned at Female 03/30/2022 9:15 AM EST Legal Sex Female 8:33 PM EDT Gender Identity Female 03/30/2022 9:15 AM EST Sexual Orientation Straight 06/01/2022 10 :54 AM EST 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 No / Unsure 04/26/2022 12:57 AM EST documented as of this encounter Plan of Treatment Upcoming Encounters Date Type Department Care Team (Late st Contact Info) Description 12/20/2024 4:40 PM EDT Telemedicine [facility] [address] [place] [address] Cami Raymond MD [address] [place] [address] documented as of this encounter Visit Diagnoses Not on filedocumented in this encounter Care Teams Packaging Machine Supplies Distributor Relationship Specialty Start Date End Date Clari Bauman FNP PCP - General Family Medicine 03/30/22 12/29/23 Cami Raymond MD [address] [place] [id number] PCP - General Family Medicine 12/30/23 Ginny Christopher Community Health Worker 07/30/22 5 Cami Raymond MD [address] [place] [address] Referring Physician Family Medicine 08/10/23 Lilly Arndt MD [address] [place] [id number] Referring Physician Internal Medicine 08/10/[address] Dietitian Nutrition 08/10/23 Shae Ayers Health Navigator 09/04/24 documented as of this encounter
--- OUTSIDE RECORDS SUMMARY | 2024-12-13 15:01 | XMS_ITS | Encounter Summary ---
Author Organization [employer] Address [address] [facility] [address] [place] [address] Care Team Providers Care Bellperson Name Role Phone AshwinGinny pineda Unavailable Unavailable Cami Raymond MD Unavailable [phone] Lilly Arndt MD Unavailable Yumiko Costa RD Unavailable Unavailable Cami Raymond MD Primary Care Provider [phone] Shae Ayers Unavailable Unavailable Reason for Visit * Reason Comments Med Refill Encounter Details Date Type Department Care Team (Late st Contact Info) Description 07/11/2024 Refill [facility] [address] [place] [address] Cami Raymond MD [address] [place], [place] [id number] Persistent depressive disorder Social History Tobacco Use Types Packs/Day Years Used Date Smoking Tobacco: Never Passive Smoke Exposure: Never Smokeless Tobacco: Never Alcohol Use Standard Drinks/Week Comments Never 0 (1 standard drink = 0.6 oz pur e alcohol) Depression Answer Date Recorded Patient Health Questionnaire-9 Score 17 09/02/2023 Patient Health Questionnaire-9 Score 17 09/02/2023 Last PHQ-9: Questionnaire Data Not on file 0 09/02/2023 Housing Stability Answer Date Recorded What is your housing situation today? I have dileep loomis 02/03/[address] you li ve. Do you have problems with any of the following? None of the above 02/03/2023 Food Insecurity Answer Date Recorded Within the past 12 months, y ou worried that your food would run out before you got money to buy more: Never True 02/03/2023 Within the past 12 months,th e food you bought just didn't last and you didn't have enough money to get more: Never True Transportation Answer Date Recorded In the past 12 months, has l ack of transportation kept you from medical appts, meetings, work or from getting things needed for daily living? No 02/03/2023 Utilities Answer Date Recorded In the past 12 months, has t he electric, gas, oil or water company threatened to shut off services in your home? No 02/03/2023 Depression Answer Date Recorded Patient Health Questionnaire-2 Score 4 09/02/2023 Comments No Sex and Gender Information Value Date Recorded Sex Assigned at Female 03/30/2022 9:15 AM EST Legal Sex Female 8:33 PM EDT Gender Identity Female 03/30/2022 9:15 AM EST Sexual Orientation Straight 06/01/2022 10 :54 AM EST Occupation Industry Job Start Date Job End Date [employer] Not on file Not on file Not on file documented as of this encounter Plan of Treatment Upcoming Encounters Date Type Department Care Team (Late st Contact Info) Description 12/20/2024 4:40 PM EDT Telemedicine [facility] [address] [place], [place] [phone] Cami Raymond MD [address] [place], [place] documented as of this encounter Visit Diagnoses Diagnosis Persistent depressive disorder documented in this encounter Additional Health Concerns Assessment Noted Time PHQ-9 Depression Total Score: 17 024 1:12 PM EDT documented as of this encounter Care Teams Bellperson Relationship Specialty Start Date End Date Cami Raymond MD [address] [place] [address] PCP - General Family Medicine 12/30/23 Ginny Christopher Community Health Worker 07/30/22 5 Cami Raymond MD [address] [place] [address] Referring Physician Family Medicine 08/10/23 Lilly Arndt MD [address] [place] [id number] Referring Physician Internal Medicine 08/10/[address] Dietitian Nutrition 08/10/23 Shae Ayers Health Navigator 09/04/24 documented as of this encounter
--- OUTSIDE RECORDS SUMMARY | 2024-12-13 15:01 | XMS_ITS | Clinical Summary ---
Author Organization [facility] Address [address] [place] [address] Care Team Providers Care Insecticide Mixer Name Role Phone Clari Bauman Primary Care Provider [phone] Allergies Active Allergy Reactions Criticality Noted Date Comments Capsaicin Dermatitis 08/05/2022 Cephalexin Anaphylaxis,Hives,Itching High 11/22/2019 Mushroom Anaphylaxis,Swelling High 01/09/2021 Penicillins Anaphylaxis,Hives High 07/28/2005 Other reaction(s): Hives/Urticaria Medications valACYclovir (VALTREX) 500 mg tablet TAKE 1 TABLET BY MOUTH EVERY DAY 05/16/2021 Active ergocalciferol (VITAMIN D2) 1,250 mcg (50,000 unit) capsule Take 1 Units by mouth daily. Active LORazepam (ATIVAN) 1 mg tablet TAKE 0.5 - 1 tablet by mouth [address] Once a day 4 day(s) 03/04/[address] (PROTONIX) 40 mg tablet Take 40 mg by mouth daily. 07/21/2021 Active vitamin D3 25 mcg (1,000 unit) capsule Take 2,000 Units by mouth once a day. Active lurasidone (LATUDA) 20 mg tablet Take 40 mg by mouth once a day. Active lisdexamfetamine (Vyvanse) 40 mg capsule Take 40 mg by mouth every morning. Active Active Problems Problem Noted Date Diagnosed Date Bilateral carpal tunnel syndrome 12/03/2022 Dysphagia, oropharyngeal phase 12/03/2022 Obstructive sleep apnea syndrome 12/03/2022 Chiari malformation type I 05/21/2022 DVT (deep venous thrombosis) 05/21/2022 Irregular heart beats 05/21/2022 PTSD (post-traumatic stress disorder) 05/21/2022 PVC's (premature ventricular contractions) 05/07 Overview (05/21/2022): 03/2022 ECG History of hysterectomy for cancer 04/23/2022 Cystic acne 03/30/2022 Perioral dermatitis 03/30/2022 Elevated antinuclear antibody (PAM) level 2021 Fatigue 01/10/2021 Irritable bowel syndrome 01/10/2021 History of 2019 novel coronavirus disease (COVID -19) 12/06/2020 Genital herpes 12/13/2019 Adnexal mass 09/22/2018 Overview (05/21/2022): Last Assessment & Plan: The patient says a CT scan showed a mass on her right ovary that is blocking her ureter. She is being worked up by nurse obgyn to rule out a malignancy. Ultrasound is planned by nurse obgyn. Last Assessment & Plan: The patient says a CT scan showed a mass on her right ovary that is blocking her ureter. She is being worked up by nurse obgyn to rule out a malignancy. Ultrasound is planned by nurse obgyn. UL is being repeated on 05/02/22 Umbilical hernia without obstruction and without gangrene 09/22/2018 Overview (05/21/2022): Last Assessment & Plan: The patient has a reducible umbilical hernia. I would be happy to fix this for her after her nurse obgyn/adnexal workup has been taken care of. Last Assessment & Plan: The patient has a reducible umbilical hernia. I would be happy to fix this for her after her nurse obgyn/adnexal workup has been taken care of. Anxiety 09/21/2018 Obsessive-compulsive disorder 09/21/2018 Rectal bleeding 09/21/2018 Morbid obesity 04/14/2013 Encounters Date Type Department Care Team Description 09/21/2024 [employer] Message [facility] [address] [place] [address] Special Assets Officer: Marcus Quintero DO Genetic Testing Results 09/12/2024 [employer] Message [facility] [address] [place] [address] Special Assets Officer: Marcus Quintero DO Follow up appt from Last 3 Months Family History Medical History Relation Name Comments Alcohol abuse Father Heart failure Father Leukemia Father Alcohol abuse Mother COPD Mother Rheum arthritis Mother Relation Name Status Comments Father Alive Mother Alive Social History Tobacco Use Types Packs/Day Years Used Date Smoking Tobacco: Never Passive Smoke Exposure: Past Smokeless Tobacco: Never Alcohol Use Standard Drinks/Week Comments Not Currently 0 (1 standard drink = 0.6 oz pur e alcohol) Comments Unknown Sex and Gender Information Value Date Recorded Sex Assigned at Female 04/14/2022 7:31 AM EST Legal Sex Female 12:28 PM EDT Gender Identity Female 04/14/2022 7:31 AM EST Sexual Orientation Straight 04/14/2022 7: 31 AM EST Last Filed Vital Signs Vital Sign Reading Time Taken Comments Blood Pressure 112/74 12/25/2022 1:46 PM EDT Pulse 80 12/25/2022 1:46 PM EDT Temperature 37.1 C (98.7 F) 12/25/2022 1:46 PM EDT Respiratory Rate 16 05/21/2022 2:58 PM EST Oxygen Saturation 100% 12/01/2022 2:11 PM EDT Inhaled Oxygen Concentration - - Weight 105.3 kg (232 lb 3.2 oz) 12/25/2022 1:46 PM EDT Height 160 cm (5' 3 ) 07/01/2022 4:03 PM EDT Body Mass Index 41.13 07/01/2022 4:03 PM EDT Plan of Treatment Upcoming Encounters Date Type Department Care Team (Late st Contact Info) Description 02/07/2025 10:40 AM EDT Follow-Up [facility] [address] [place] [address] Special Assets Officer: Marcus Quintero, DO [address] [place] [address] Health Maintenance Due Date Last Done Comments Cervical Cancer Screening 1990 HIV Screening 1990 HPV and Pap Smear 1990 Hepatitis C Screening 1990 Pap Smear 1990 Hepatitis B Vaccines (3 of 3 - 3-dose series) 03/26/1998 01/29/1998, 11/17/1996, 10/27/1996 COVID-19 Vaccine ( season) 2023 01/12/2022, 06/06/2020, 05/09/2020 Alcohol/Substance Use Screening 04/19/2024 Depression Screening and Follow-Up 04/19/2024 Social Drivers of Health Annual Screening 04/19/2024 Influenza Vaccine (#1) 2024 , 01/09/2021, 01/05/2019, Additional history exists DTaP,Tdap,and Td Vaccines (9 - Td or Tdap) 09/11/2025 09/12/2015, 06/20/2015, 06/15/2013, Additional history exists RSV Vaccine (60+ years old and patients) (1 - 1-dose 75+ series) 2065 Varicella Vaccines Completed 09/11/2016, 0 09/15/2015, 07/14/1995, Additional history exists Pneumococcal Vaccine: Pediatric (0-5 Years) and At-Risk Patients (6-50 Years) Aged Out No longer eligible based on patient's age to complete this topic [place] [address] [place] [address] Care Teams Insecticide Mixer Relationship Specialty Start Date End Date Clari Bauman [address] [id number] PCP - General 10/09/22
--- OUTSIDE RECORDS SUMMARY | 2024-12-13 15:01 | XMS_ITS | Clinical Summary ---
Author Organization [facility] Address [address] [facility] [address] [place] [address] Phone Care Team Providers Care Environmental Web Crawler Name Role Phone Kim Lemon MD Unavailable [phone] Bailee Sierra PA-C Unavailable [phone] Lilly Arndt MD Unavailable [phone] Cami Raymond MD Primary Care Provider Allergies Active Allergy Reactions Criticality Noted Date Comments Capsicum 08/05/2022 Cephalexin 09/24/2022 Mushroom Anaphylaxis,Swelling High 01/09/2021 Penicillins Anaphylaxis High 09/18/2018 Reishi Mushroom (Ganoderma Lucidum) 09/24/2022 Medications cholecalciferol , vitamin D3, 25 mcg (1,000 unit) capsule Take 2,000 Units by mouth. Active LORazepam (ATIVAN) 1 MG tablet TAKE 1 TABLET BY MOUTH IF NEEDED ONCE DAILY FOR ANXIETY 01/05/2023 Active lurasidone (LATUDA) 40 mg tablet Take 40 mg by mouth every evening. 01/21/2023 Active pantoprazole (PROTONIX) 40 MG tablet Take 1 tablet (40 mg) by mouth in the morning. 11/20/2022 Active sertraline (ZOLOFT) 50 MG tablet 02/01/2023 Active valACYclovir (VALTREX) 500 MG tablet Take 500 mg by mouth. 06/15/2022 Active lisdexamfetamin e (VYVANSE) 50 MG capsule Take 50 mg by mouth every morning. 02/04/2023 Active aspirin 81 mg chewable tablet Take 81 mg by mouth daily. Active acetaminophen (TYLENOL) 325 mg tablet Take 2 tablets (650 mg total) by mouth every 4 (four) hours as needed. 0 04/07/2023 Active ibuprofen (ADVIL,MOTRIN) 200 MG tablet Take 2 tablets (400 mg total) by mouth every 6 (six) hours as needed for pain (specific location in comments). 04/07/2023 Active mometasone (NASONEX) 50 mcg/actuation nasal spray 2 sprays by Nasal route daily. 17 g 12 03/29/2024 Active Active Problems Problem Noted Date Diagnosed Date DVT (deep venous thrombosis) 03/29/2024 Overview (03/29/2024): Right posterior tibial vein S/P ventral herniorrhaphy 04/20/2023 Localized edema 02/05/2023 Assessment & Plan (02/05/2023 9:48 AM EDT): As mentioned we are going to do a venous reflux study I will see her thereafter in follow-up. She had her second DVT recently more than likely I will encourage her to take oral anticoagulation and I am wondering if she needs a work-up to make sure she has not had recurrent cancer. Obstructive sleep apnea syndrome 12/03/2022 Bipolar II disorder, mild, d epressed, with mixed features, in full remission 10/27/2022 Class 2 obesity 05/31/2022 Polyarthralgia 05/23/2022 Overview (03/29/2024): Generalized swelling of the hands and feet along with some loss of pull through hooker strength and coordination. Eval with Rheum on 05/15/22 without active synovitis. + strong family history of RA. ? neurological component to symptoms and differential if Rhemm work-up is unrevealing. Told possible hEDS - unable to get in with genetics in the next 6-12 months. Hidradenitis suppurativa 05/07/2022 Gastroesophageal reflux disease without esophagi tis 04/23/2022 Attention deficit hyperactiv ity disorder (ADHD), predominantly inattentive type 03/30/2022 Overview (03/29/2024): Notable improvement with Vyvanse Managed now also with Latuda for mood disorder Cystic acne 03/30/2022 Herpes virus disease 03/30/2022 Elevated antinuclear antibody (PAM) level 2021 Overview (03/29/2024): Seen by Rheumtology 05/15/22 @ [facility]. PAM IFA: 1: 320 (07/08). Next follow up with Rheumatology 08/25/22. Irritable bowel syndrome 01/10/2021 Eczema 01/10/2021 Genital herpes 12/13/2019 Adnexal mass 09/22/2018 Assessment & Plan (09/22/2018 7:28 PM EDT): The patient says a CT scan showed a mass on her right ovary that is blocking her ureter. She is being worked up by manager action to rule out a malignancy. Ultrasound is planned by manager action. Obsessive-compulsive disorder 09/21/2018 Menorrhagia with irregular cycle 09/21/2018 Irregular bleeding 09/21/2018 Iron deficiency anemia 09/21/2018 Herpes 09/21/2018 Chiari I malformation 09/21/2018 Assessment & Plan (02/05/2023 9:48 AM EDT): Clinically insignificant at this time Anxiety 09/21/2018 Assessment & Plan (02/05/2023 9:48 AM EDT): Present but stable Overactive child 09/21/2018 Rectal bleeding 09/21/2018 Right upper quadrant abdominal pain 09/21/2018 Resolved Problems Problem Noted Date Diagnosed Date Resolved Date Umbilical hernia without obs truction and without gangrene 09/22/2018 04/20/2023 Assessment & Plan (09/22/2018 7:26 PM EDT): The patient has a reducible umbilical hernia. I would be happy to fix this for her after her manager action/adnexal workup has been taken care of. Biliary dyskinesia 09/21/2018 4 Polyp of gallbladder 09/21/2018 024 Encounters Date Type Department Care Team Description 12/04/2024 1:30 PM EDT Telemedicine [facility] [address], 10th [address], [address] [place] [address] Jarek Smart MD, PhD Perla Rodriguez History of cervical cancer (Primary Dx); Family history of stomach cancer; Family history of breast cancer; Encounter for nonprocreative genetic counseling 11/27/2024 Orders Only [facility] Occupational [facility] [address] [place] [address] Peri Hamilton, LEILA Encounter for occupational health examination (Primary Dx); Need for hepatitis B screening test 11/20/2024 10:25 AM EDT - 11/20/2024 11:59 PM EDT Hospital Encounter [facility] [address] [place] [address] Jose Hamilton MD, MPH Discharge Disposition: Home or Self Care 11/16/2024 Orders Only [facility] [address] [place] [address] Peri Hamilton, RN Encounter for occupational health examination (Primary Dx) 10/25/2024 11:00 AM EDT Telemedicine [facility] [address] [facility] [facility], 10[address], [address] [place] [address] Jarek Smart MD, PhD Perla Rodriguez History of cervical cancer (Primary Dx); Family history of stomach cancer; Family history of breast cancer; Encounter for nonprocreative genetic counseling 10/09/2024 Orders Only [facility] [address] [facility] [facility], [address], [address] [place] [address] Cami Raymond MD Encounter for nonprocreative genetic counseling (Primary Dx) from Last 3 Months Immunizations Immunization Administration Dates Next Due DTP 07/14/1995, 6,02/18/1992,09/12,08/18/1991,05/15/1991,04/19/1991 ,03/15/1991,02/17/1991 HPV,quadrivalent 12/09/2007,01/20/2007, 7 Hepatitis B 01/29/1998,11/17/1996,10/27/1996 Hepatitis B Adult 11/20/2024, 8,11/17/1996,10/27 Hib, unspecified formulation 03/15/1992,09/12/18 92,05/15/1991 Hib,HbOC 04/19/1991 Hib,PRP-T 06/18/1995, 2,08/18/1991,02/17 INFLUENZA, SPLIT VIRUS, TRIV ALENT W/ PRESERVATIVE IM 02/12/2016,02/23/2013 Influenza Quadrivalent Prese rvative Free IM 01/05/2019 Influenza, Unspecified Formulation 02/02/2022 MMR 01/14/2018, 6,09/15/2015,07/18,08/05/2000,08/05/2000,07/14/1995 ,07/14/1995 MMRV 09/15/2015 Meningococcal MCV4, unspecif ied Formulation 10/01/2006 Polio - OPV 04/19/1991 Polio, Unspecified Formulation 7,07/14/1995,06/18/1995,02/17,05/15/1991,03/15/1991,02/17/1991 Td (adult),2 Lf Tetanus Toxo id, PF, Adsorbed 07/26/2003 Tdap 09/12/2015, 6,06/20/2015,06/15 Varicella 09/11/2016, 7,09/15/2015,07/13,06/18/1995 Family History Medical History Relation Comments Heart disease Father Breast cancer Maternal Grandmother Ovarian cancer Maternal Grandmother Uterine cancer Maternal Grandmother Osteoporosis Mother Rheumatoid arthritis Mother Heart disease Paternal Grandfather Uterine cancer Paternal Grandmother Relation Status Comments Father Maternal Grandmother Mother Paternal Grandfather Paternal Grandmother Social History Tobacco Use Types Packs/Day Years Used Date Smoking Tobacco: Never Smokeless Tobacco: Never Tobacco Cessation:Counseling Given: Not Answered Alcohol Use Standard Drinks/Week Comments Never 0 (1 standard drink = 0.6 oz pur e alcohol) Education Answer Date Recorded Are you interested in more education? Not on estela e 08/14/2022 Are you concerned about learning? Not on file 08/14/2022 No 08/14/2022 No 08/14/2022 Digital Access Answer Date Recorded No 09/14/2022 No 09/14/2022 Reliable internet access at home? Not on file 09/14/2022 Device with a working camera? Not on file Intimate Partner Violence Answer Date R ecorded Are you denied basic needs s uch as food, clothing, or medical care? No 04/07/2023 In the past 12 months have y ou been in a relationship with a person who hurts, threatens, or tries to control you? No 04/07/2023 Are you denied basic needs s uch as food, clothing, or medical care? No 04/07/2023 In the past 12 months have y ou been in a relationship with a person who hurts, threatens, or tries to control you? No 04/07/2023 Comments No Sex and Gender Information Value Date Recorded Sex Assigned at Female 09/18/2018 10:51 AM EDT Legal Sex Female 7:10 AM EDT Gender Identity Female 09/18/2018 10:51 AM EDT Sexual Orientation Straight 09/18/2018 10 :51 AM EDT Last Filed Vital Signs Vital Sign Reading Time Taken Comments Blood Pressure 134/85 03/29/2024 11:17 AM EST Pulse 91 03/29/2024 11:17 AM EST Temperature 36.4 C (97.6 F) 03/29/2024 11:17 AM EST Respiratory Rate 18 03/29/2024 11:17 AM EST Oxygen Saturation 100% 03/29/2024 11:17 AM EST Inhaled Oxygen Concentration - - Weight 106.6 kg (235 lb) 03/30/2023 12:14 PM EST Height 160 cm (5' 3 ) 03/30/2023 12:14 PM EST Body Mass Index 41.63 03/30/2023 12:14 PM EST Plan of Treatment Health Maintenance Due Date Last Done Comments DEPRESSION SCREENING 2002 HEPATITIS C SCREENING 2008 HIV ONE-TIME SCREENING (18-65 YEARS) 2008 PAP SMEAR 09/23/2019 09/22/2016 COVID-19 VACCINE (2023- season) 2023 INFLUENZA VACCINE (#1) 2024 , 01/05/2023, 02/02/2022, Additional history exists Adult Td,Tdap Booster 09/11/2025 09/12/2015 , 09/12/2015, 06/20/2015, Additional history exists HIB VACCINES Completed 06/18/1995, 02/18, 02/18/1992, Additional history exists MENINGOCOCCAL VACCINES (ACWY) Aged Out 10/01/2006 No longer eligible based on patient's age to complete this topic SMOKING STATUS SCREENING (Once After 26 Yrs) Completed 03/29/2024 HEPATITIS A VACCINES Aged Out No long er eligible based on patient's age to complete this topic MENINGOCOCCAL VACCINES (B) Aged Out N o longer eligible based on patient's age to complete this topic PNEUMOCOCCAL VACCINES (0-49 years) Aged Out No longer eligible based on patient's age to complete this topic Medical Devices Implanted Type Area Pallet Rectifier Device Identifier Shelf Expiration Date Model / Serial / Lot Nodata NODATA Spine Cervical Mesh Graft 4.0x6.0in [address] Polypropylene Echo Ps Positioning System Hydrogel Barrier Hernia Ellipse - [id number] Implanted:Qty: 1 on 04/07/2023 by Kim Lemon MD at [facility] N/A: Abdomen [employer] 10/14/2024 [id number] / / [id number] Procedures Procedure Name Priority Date/Time Associated Diagnosis Comments T SPOT TB TEST Routine 11/20/2024 10:47 AM EDT Encounter for occupational health examination from Last 3 Months Results * T spot TB test (11/20/2024 10:47 AM EDT) [facility] T-SPOT.TB Negative Negative [employer] [facility] Comment: (NOTE) A negative test result does not exclude the possibility of exposure to or infection with Mycobacterium tuberculosis (M. tuberculosis). Patients with recent exposure to TB infected individuals exhibiting a negative T-SPOT.TB result should be considered for retesting within 6 weeks or if other relevant clinical symptoms indicate. Results from T-SPOT.TB testing must be used in conjunction with each individual's epidemiological history, current medical status, and results of other diagnostic evaluations. The T-SPOT.TB test is qualitative and results are reported as positive, borderline, or negative, given that the test controls perform as expected. In line with the Centers for Disease Control and Prevention's 2010 recommendation to report quantitative measurements alongside the qualitative result, the laboratory provides spot counts for informational purposes only. The T-SPOT.TB test should not be interpreted as a quantitative test. Panel A Spot Count Corrected For Neg Control 0 [employer] Panel B Spot Count Corrected For Neg Control 1 [facility] [employer] Negative Control Passed [facility] [employer] Positive Control Passed [facility] [email or web address] Comment: (NOTE) For additional information, please refer to http://education.Flimmer/faq/GLI530 (This link is being provided for informational/ educational purposes only.) Blood 11/20/2024 10:4 7 AM EDT 11/20/2024 10:49 AM EDT us Jose Hamilton MD, MPH LAB BLOOD ORDERABLES Fin al Result [employer] [id number] [place], [place] from Last 3 Months Insurance [facility] P[facility] P[facility] [place] [address] [place] Advance Directives For more information, please contact: [phone] (9AM - 5PM [facility], Wednesday-Wednesday) Documents on File Type Date Recorded Patient Want Ad Receiver Expl anation Healthcare Proxy 04/09/2023 4:08 PM * Full Code (Latest Code Status on File) Date Activated Date Inactivated Comments 04/07/2023 7:37 AM Question Answer Comments Code Status Confirmed With: Patient Care Teams Environmental Web Crawler Relationship Specialty Start Date End Date Cami Raymond MD [address] [place] [id number] [email or web address] PCP - General Family Medicine 03/29/24 Kim Lemon MD [address] [place] [address], [address] [place] [phone] [email or web address] Historical LMR Provider 02/04/17 Bailee Sierra PA-C [address] [place] [email or web address] Physician Sheet Metal Worker Maintenance Hematology 07/24/22 Lilly Arndt MD [address] [place] [address] [email or web address] Insurance Assigned Provider 11/27/23 Additional Source Comments The information contained in this document represents components of the legal health record. It is not the complete legal health record.[facility]
--- OUTSIDE RECORDS SUMMARY | 2024-12-13 15:01 | XMS_ITS | Encounter Summary ---
Author Organization [facility] Address [address] [facility] [address] [place] [address] Phone Care Team Providers Care Vessel Manager Name Role Phone Kim Lemon MD Unavailable [phone] Bailee Sierra PA-C Unavailable [phone] Clari Mcknight NP Primary Care Pr ovider Cami Raymond MD Unavailable [phone] Cami Raymond MD Unavailable [phone] Lilly Arndt MD Unavailable [phone] Cami Raymond MD Unavailable [phone] Lilly Arndt MD Unavailable Cami Raymond MD Primary Care Provider Encounter Details Date Type Department Care Team (Late st Contact Info) Description 04/07/2023 Procedure Pass OR Admitting Dept - Virtual Department [address] [place], [place] [id number] Social History Tobacco Use Types Packs/Day Years [...] Orientation Straight 09/18/2018 10 :51 AM EDT documented as of this encounter Plan of Treatment Not on file documented as of this encounter Visit Diagnoses Not on filedocumented in this encounter Care Teams Vessel Manager Relationship Specialty Start Date End Date Clari Mcknight NP [address] [place] [phone] PCP - General Nurse Practitioner 09/24/22 03/28/24 Cami Raymond MD [address] [place] [phone] PCP - General Family Medicine 03/29/24 Kim Lemon MD [address] [place] [phone] Historical LMR Provider 02/04/17 Bailee Sierra PA-C [address] [place] [email or web address] Physician Clipman Hematology 07/24/22 Cami Raymond MD [address] [place] [address] [email or web address] Insurance Assigned Provider 04/24/23 05/29/23 Cami Raymond MD [address] [place] [address] [email or web address] Insurance Assigned Provider 07/24/23 08/28/23 Lilly Arndt MD [address] [place] [address] [email or web address] Insurance Assigned Provider 08/28/23 10/23/23 Cami Raymond MD [address] [place] [address] [email or web address] Insurance Assigned Provider 10/23/23 11/27/23 Lilly Arndt MD [address] [place] [phone] Insurance Assigned Provider 11/27/23 documented as of this encounter Additional Source Comments The information contained in this document represents components of the legal health record. It is not the complete legal health record.[facility]
--- OUTSIDE RECORDS SUMMARY | 2024-12-13 15:01 | XMS_ITS | Encounter Summary ---
Author Organization [employer] Address [address] [facility] 7t [place] [address] Care Team Providers Care Home Service Technician Name Role Phone Clari Bauman Primary Care Provider Unavailable Ginny Christopher Unavailable Unavailable Cami Raymond MD Unavailable [phone] Lilly Arndt MD Unavailable Yumiko Costa RD Unavailable Unavailable Cami Raymond MD Primary Care Provider [phone] Shae Ayers Unavailable Unavailable Encounter Details Date Type Department Care Team (Late st Contact Info) Description 10/14/2023 Orders Only [facility] MEDICAL [address] [place] [address] Taylor Márquez FNP Social History Tobacco Use Types Packs/Day [...] is your housing situation today? 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 Not on file Not on file documented as of this encounter Plan of Treatment Upcoming Encounters Date Type Department Care Team (Late st Contact Info) Description 12/20/2024 4:40 PM EDT Telemedicine [facility] MEDICAL [address] [place] [address] Cami Raymond MD [address] [place] [address] documented as of this encounter Visit Diagnoses Not on filedocumented in this encounter Additional Health Concerns Assessment Noted Time PHQ-9 Depression Total Score: 17 024 1:12 PM EDT documented as of this encounter Care Teams Home Service Technician Relationship Specialty Start Date End Date Clari Bauman FNP PCP - General Family Medicine 03/30/22 12/29/23 Cami Raymond MD [address] [place] [address] PCP - General Family Medicine 12/30/23 Ginny Christopher Community Health Worker 07/30/22 5 Cami Raymond MD [address] [place] [address] Referring Physician Family Medicine 08/10/23 Lilly Arndt MD [address] [place] [address] Referring Physician Internal Medicine 08/10/[address] Dietitian Nutrition 08/10/23 Shae Ayers Health Navigator 09/04/24 documented as of this encounter
--- OUTSIDE RECORDS SUMMARY | 2024-12-13 15:01 | XMS_ITS | Encounter Summary ---
Author Organization [employer] Address [address] [facility] [address] 7[address] [place] [address] Care Team Providers Care Mask Designer Name Role Phone Clari Bauman UNIT RECEPTIONIST Primary Care Provider Unavailable Ginny Christopher Unavailable Unavailable Cami Raymond MD Unavailable [phone] Lilly Arndt MD Unavailable Yumiko Costa RD Unavailable Unavailable Cami Raymond MD Primary Care Provider [phone] Shae Ayers Unavailable Unavailable Encounter Details Date Type Department Care Team (Late st Contact Info) Description 07/07/2023 Orders Only [facility] MEDICAL [address] [place] [address] Shae Westbrook PA Dyspnea on exertion Social History Tobacco Use Types Packs/Day Years Used Date Smoking Tobacco: Never Passive Smoke Exposure: Never Smokeless Tobacco: Never Alcohol Use Standard Drinks/Week Comments Never 0 (1 standard drink = 0.6 oz pur e alcohol) Depression Answer Date Recorded Patient Health Questionnaire-9 Score 18 09/29/2022 Housing Stability Answer Date Recorded What is [...] Date Recorded Patient Health Questionnaire-2 Score 0 09/29/2022 Comments No Sex and Gender Information Value Date Recorded Sex Assigned at Female 03/30/2022 9:15 AM EST Legal Sex Female 8:33 PM EDT Gender Identity Female 03/30/2022 9:15 AM EST Sexual Orientation Straight 06/01/2022 10 :54 AM EST 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 MEDICAL [address] [place] [address] Cami Raymond MD [address] [place] [address] documented as of this encounter Procedures Procedure Name Priority Date/Time Associated Diagnosis Comments AMB REFERRAL TO CARDIOLOGY Routine 07/02/2023 Dyspnea on exertion documented in this encounter Results * Referral to Cardiology (07/02/2023) Shae SKY OUTPATIENT REFERRAL ORDERABLES F inal Result documented in this encounter Visit Diagnoses Diagnosis Dyspnea on exertion Other dyspnea and respiratory abnormality documented in this encounter Additional Health Concerns Assessment Noted Time PHQ-9 Depression Total Score: 18 023 2:45 PM EDT documented as of this encounter Care Teams Mask Designer Relationship Specialty Start Date End Date Clari Bauman FNP PCP - General Family Medicine 03/30/22 12/29/23 Cami Raymond MD [address] [place] [address] PCP - General Family Medicine 12/30/23 Ginny Christopher Community Health Worker 4/13/23 5/18/2 5 Cami Raymond MD [address] [place] [address] Referring Physician Family Medicine 08/10/23 Lilly Arndt MD [address] [place] [address] Referring Physician Internal Medicine 08/10/[address] Dietitian Nutrition 08/10/23 Shae Ayers Health Navigator 09/04/24 documented as of this encounter
--- OUTSIDE RECORDS SUMMARY | 2024-12-13 15:01 | XMS_ITS | Encounter Summary ---
Author Organization [facility] Address [address] [place] [address] Care Team Providers Care Product Support Technician Name Role Phone Clari Bauman Primary Care Provider [phone] Encounter Details Date Type Department Care Team (Late st Contact Info) Description 10/13/2022 Telephone [facility] [address] [place] [address] Telephone Intake, Staff Social History Tobacco Use Types Packs/Day Years [...] Orientation Straight 04/14/2022 7: 31 AM EST documented as of this encounter Miscellaneous Notes * Telephone Encounter - Stormy Menchaca - 10/13/2022 1:56 PM EDT [facility] Closed until 2024. Left voicemail for patient. Unable to book appointment. May call [facility] [place] [phone] 10.13.22 * Telephone Encounter - Wendy Villalobos - 10/13/2022 1:45 PM EDT Patient calling to say she received a call from [facility] to book an appointment for Hypermobility. Please call patient at: [phone] documented in this encounter Plan of Treatment Upcoming Encounters Date Type Department Care Team (Late st Contact Info) Description 02/07/2025 10:40 AM EDT Follow-Up [facility] [address] [place] [address] Fulfillment Specialist: Marcus Quintero DO [address] [facility] [place] [address] documented as of this encounter Visit Diagnoses Not on filedocumented in this encounter Care Teams Product Support Technician Relationship Specialty Start Date End Date Clari Bauman [address] [place] [address] PCP - General 10/09/22 documented as of this encounter
--- OUTSIDE RECORDS SUMMARY | 2024-12-13 15:01 | XMS_ITS | Encounter Summary ---
Author Organization [employer] Address [address] [facility] 7t [place] [address] Care Team Providers Care Medical Office Receptionist Name Role Phone Clari Bauman PHARMACY CLINICAL COORDINATOR Primary Care Provider Unavailable Ginny Christopher Unavailable Unavailable Cami Raymond MD Unavailable Lilly Arndt MD Unavailable Yumiko Costa RD Unavailable Unavailable Cami Raymond MD Primary Care Provider Shae Ayers Unavailable Unavailable Encounter Details Date Type Department Care Team (Late st Contact Info) Description 04/23/[address] 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 MEDICAL [address] [place] [address] Cami Raymond MD [address] [place] [address] documented as of this encounter Visit Diagnoses Not on filedocumented in this encounter Care Teams Medical Office Receptionist Relationship Specialty Start Date End Date Clari Bauman FNP PCP - General Family Medicine 03/30/22 12/29/23 Cami Raymond MD [address] [place] [address] PCP - General Family Medicine 12/30/23 Ginny Christopher Community Health Worker 07/30/22 5 Cami Raymond MD [address] [place] [address] Referring Physician Family Medicine 08/10/23 Lilly Arndt MD [address] [place] [address] Referring Physician Internal Medicine 08/10/[address] Dietitian Nutrition 08/10/23 Shae Ayers Health Navigator 09/04/24 documented as of this encounter
--- OUTSIDE RECORDS SUMMARY | 2024-12-13 15:01 | XMS_ITS | Encounter Summary ---
Author Organization [employer] Address [address] [facility] 7t [place] [address] Care Team Providers Care Garment Folder Name Role Phone Clari Bauman Primary Care Provider Unavailable Ginny Christopher Unavailable Unavailable Cami Raymond MD Unavailable [phone] Lilly Arndt MD Unavailable Yumiko Costa RD Unavailable Unavailable Cami Raymond MD Primary Care Provider [phone] Shae Ayers Unavailable Unavailable Encounter Details Date Type Department Care Team (Late st Contact Info) Description 07/14/2022 Orders Only [facility] MEDICAL [address] [place] [address] Clari Bauman FNP Elevated antinuclear antibody (PAM) level (Primary Dx); History of DVT (deep vein thrombosis) Social History Tobacco Use Types Packs/Day Years Used Date Smoking Tobacco: Never Smokeless Tobacco: Never Alcohol Use Standard Drinks/Week Comments Never 0 (1 standard drink = 0.6 oz pur e alcohol) PHQ-2 Answer Date Recorded Patient Health Questionnaire-2 Score 0 06/02/2022 Comments Unknown Sex and Gender Information Value Date Recorded Sex Assigned at Female 03/30/2022 9:15 AM EST Legal Sex Female 8:33 PM EDT Gender Identity Female 03/30/2022 9:15 AM EST Sexual Orientation Straight 06/01/2022 10 :54 AM EST 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 No / Unsure 07/09/2022 4:43 PM EDT documented as of this encounter Plan of Treatment Upcoming Encounters Date Type Department Care Team (Late st Contact Info) Description 12/20/2024 4:40 PM EDT Telemedicine [facility] MEDICAL [address] [place] [address] Cami Raymond MD [address] [place], [place] documented as of this encounter Procedures Procedure Name Priority Date/Time Associated Diagnosis Comments LUPUS ANTICOAGULANT EVALUATION WITH REFLEX Routine 07/30/2023 2:41 PM EDT Elevated antinuclear antibody (PAM) level History of DVT (deep vein thrombosis) DNA (DS) ANTIBODY Routine 10/16/2022 10: 10 AM EDT Elevated antinuclear antibody (PAM) level History of DVT (deep vein thrombosis) documented in this encounter Results * Lupus anticoagulant (07/30/2023 2:41 PM EDT) Pathologist [facility] PTT-LA Screen 35.7 0.0 - 43.5 sec [facility] 1 dRVVT Screen 35.6 0.0 - 47.0 sec [facility] 1 Lupus Anticoagulant Comment: [facility] Comment:No lupus anticoagula nt was detected. Blood Venous blood specimen / Unknown 07/30/2023 2:41 PM EDT 07/30/2023 Narrative [facility] - 08/02/2023 12:05 PM EDT Performed at: 01 - [facility] [id number] Family Lawyer: Mauri Lew MD, Phone: [phone] Clari GAINESP LAB BLOOD ORDERABLES F inal Result [facility] * DNA (DS) Antibody (10/16/2022 10:10 AM EDT) Blood Venous blood specimen / Unknown Clari Bauman CUTTING MACHINE OFFBEARER LAB BLOOD ORDERABLES F inal Result [facility] LAB documented in this encounter Visit Diagnoses Diagnosis Elevated antinuclear antibody (PAM) level- Primary Other and unspecified nonspecific immunological findings History of DVT (deep vein thrombosis) documented in this encounter Care Teams Garment Folder Relationship Specialty Start Date End Date Clari Bauman FNP PCP - General Family Medicine 03/30/22 12/29/23 Cami Raymond MD [address] [place] [address] PCP - General Family Medicine 12/30/23 Ginny Christopher Community Health Worker 07/30/22 5 Cami Raymond MD [address] [place] [address] Referring Physician Family Medicine 08/10/23 Lilly Arndt MD [address] [place] [address] Referring Physician Internal Medicine 08/10/[address] Dietitian Nutrition 08/10/23 Shae Ayers Health Navigator 09/04/24 documented as of this encounter
--- OUTSIDE RECORDS SUMMARY | 2024-12-13 15:01 | XMS_ITS | Encounter Summary ---
Author Organization [employer] Address [address] [facility] 7t [place] [address] Care Team Providers Care Automatic Hemmer Name Role Phone Clari Bauman TRAVELING PHLEBOTOMIST Primary Care Provider Unavailable Ginny Christopher Unavailable Unavailable Cami Raymond MD Unavailable [phone] Lilly Arndt MD Unavailable Yumiko Costa RD Unavailable Unavailable Cami Raymond MD Primary Care Provider [phone] Shae Ayers Unavailable Unavailable Encounter Details Date Type Department Care Team (Late st Contact Info) Description 04/28/2022 Abstract [place] [facility] MEDICAL [address] [place] [address] Melodie Menendez FNP Social History Tobacco Use [...] 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 Not [...] Description 12/20/2024 4:40 PM EDT Telemedicine [facility] MEDICAL [address] [place] [address] Cami Raymond MD [address] [place] [address] documented as of this encounter Visit Diagnoses Not on filedocumented in this encounter Care Teams Automatic Hemmer Relationship Specialty Start Date End Date Clari Bauman FNP PCP - General Family Medicine 03/30/22 12/29/23 Cami Raymond MD [address] [place] [address] PCP - General Family Medicine 12/30/23 Ginny Christopher Community Health Worker 07/30/22 5 Cami Raymond MD [address] [place] [address] Referring Physician Family Medicine 08/10/23 Lilly Arndt MD [address] [place] [address] Referring Physician Internal Medicine 08/10/[address] Dietitian Nutrition 08/10/23 Shae Ayers Health Navigator 09/04/24 documented as of this encounter
--- OUTSIDE RECORDS SUMMARY | 2024-12-13 15:02 | XMS_ITS | Encounter Summary ---
Author Organization [employer] Address [address] [facility] 7t [place] [address] Care Team Providers Care Manager Talent Acquisition Name Role Phone Cami Raymond MD Unavailable [phone] Lilly Arndt MD Unavailable Yumiko Costa RD Unavailable Unavailable Cami Raymond MD Primary Care Provider [phone] Shae Ayers Unavailable Unavailable Encounter Details Date Type Department Care Team (Late st Contact Info) Description 10/31/2024 Results Follow-Up [facility] MEDICAL [address] [place] [address] Cami Raymond MD [address] [place] [address] BI US Breast Complete Bilateral Social History Tobacco Use Types Packs/Day Years [...] 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 Not on file documented as of this encounter Plan of Treatment Upcoming Encounters Date Type Department Care Team (Late st Contact Info) Description 12/20/2024 4:40 PM EDT Telemedicine [facility] MEDICAL [address] [place] [address] Cami Raymond MD [address] [place] [address] documented as of this encounter Visit Diagnoses Not on filedocumented in this encounter Additional Health Concerns Assessment Noted Time PHQ-9 Depression Total Score: 17 024 1:12 PM EDT documented as of this encounter Care Teams Manager Talent Acquisition Relationship Specialty Start Date End Date Cami Raymond MD [address] [place] [address] PCP - General Family Medicine 12/30/23 Cami Raymond MD [address] [place] [address] Referring Physician Family Medicine 08/10/23 Lilly Arndt MD [address] [place] [address] Referring Physician Internal Medicine 08/10/[address] Dietitian Nutrition 08/10/23 Shae Ayers Health Navigator 09/04/24 documented as of this encounter
--- OUTSIDE RECORDS SUMMARY | 2024-12-13 15:02 | XMS_ITS | Encounter Summary ---
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 Not on file documented as of this encounter Plan of Treatment Upcoming Encounters Date Type Department Care Team (Late st Contact Info) Description 12/20/2024 4:40 PM EDT Telemedicine [facility] MEDICAL [address] [place] [address] Cami Raymond MD [address] [place] [address] documented as of this encounter Visit Diagnoses Not on filedocumented in this encounter Additional Health Concerns Assessment Noted Time PHQ-9 Depression Total Score: 17 024 1:12 PM EDT documented as of this encounter Care Teams Linux System Admin Relationship Specialty Start Date End Date Cami Raymond MD [address] [place] [address] PCP - General Family Medicine 12/30/23 Cami Raymond MD [address] [place] [address] Referring Physician Family Medicine 08/10/23 Lilly Arndt MD [address] [place] [address] Referring Physician Internal Medicine 08/10/[address] Dietitian Nutrition 08/10/23 Shae Ayers Health Navigator 09/04/24 documented as of this encounter
--- OUTSIDE RECORDS SUMMARY | 2024-12-13 15:02 | XMS_ITS | Clinical Summary ---
Author Organization [facility] Address [address] [place] [address] Care Team Providers Care Registered Nurse Step Down Name Role Phone Cami Raymond MD Unavailable [phone] Lilly Arndt MD Unavailable Yumiko Costa RD Unavailable Unavailable Cami Raymond MD Primary Care Provider [phone] Shae Ayers Unavailable Unavailable Allergies Active Allergy Reactions Criticality Noted Date Comments Capsaicin Dermatitis 08/05/2022 Capsicum 08/05/2022 Cephalexin Anaphylaxis High 03/30/2022 Mushroom Extract Complex (Obsolete) Anaphylaxis,Swelling High 01/09/2021 Penicillin G Anaphylaxis High 03/30/2022 Reishi (Ganoderma Lucidum) (Obsolete) 09/24/2022 Medications * This document contains information received from the source organization and may not represent a complete record from that organization. Cholecalciferol (VITAMIN D3 PO) Take by mouth. 5000 units Active saccharomyces boulardii (Florastor) 250 MG capsule Take 250 mg by mouth in the morning and 250 mg in the evening. Active naproxen (Naprosyn) 500 MG tablet Take 500 mg by mouth with breakfast and with evening meal. 10/20/19 Active acetaminophen (Tylenol) 325 MG tablet Take 650 mg by mouth every 4 (four) hours if needed. 04/07/20 Active aspirin 81 MG chewable tablet Chew 81 mg in the morning. Active ibuprofen 200 MG tablet Take 400 mg by mouth every 6 (six) hours if needed. 04/07/20 Active valACYclovir (Valtrex) 500 MG tabletIndication s:Herpes virus disease Take 1 tablet (500 mg) by mouth Once per day. 90 tablet 2 03/25/20 25 Active ARIPiprazole (Abilify) 5 MG tabletIndication s:Persistent depressive disorder Take 1 tablet (5 mg) by mouth Once per day. 90 tablet 10/05/19 25 025 Active pantoprazole (ProtoNix) 40 MG EC tabletIndication s:Gastroesophage al reflux disease without esophagitis TAKE 1 TABLET BY MOUTH BEFORE BREAKFAST 90 tablet 1 10/19/19 25 Active levothyroxine (Synthroid, Levoxyl) 50 MCG tabletIndication s:Persistent depressive disorder Take 1 tablet (50 mcg) by mouth before breakfast. 90 tablet 10/19/19 25 025 Active amphetamine-dext roamphetamine (Adderall) 5 MG tabletIndication s:Persistent depressive disorder Take 1 tablet (5 mg) by mouth with lunch. 30 tablet 11/09/19 25 Active LORazepam (Ativan) 1 MG tabletIndication s:Anxiety Take 1 tablet (1 mg) by mouth if needed each day for anxiety. 30 tablet 11/09/19 25 Active Tirzepatide-Weig ht Management (Zepbound) 7.5 MG/0.5ML solution auto-injectorInd ications:BMI 45.0-49.9, adult (CMS/HCC) Inject 0.5 mL (7.5 mg) under the skin 1 (one) time per week. 2 mL 2 11/16/19 25 025 Active lisdexamfetamine (Vyvanse) 60 MG capsuleIndicatio ns:ADHD, predominantly inattentive type Take 1 capsule (60 mg) by mouth in the morning. 30 capsule 11/16/19 25 025 Active Tirzepatide-Weig ht Management (Zepbound) 5 MG/0.5ML solution auto-injectorInd ications:BMI 45.0-49.9, adult (CMS/HCC) Inject 0.5 mL (5 mg) under the skin 1 (one) time per week. 2 mL 2 09/29/19 25 025 Discontinued lisdexamfetamine (Vyvanse) 60 MG capsuleIndicatio ns:ADHD, predominantly inattentive type Take 1 capsule (60 mg) by mouth in the morning. 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 She is doing ok, having some ongoing grieving. Mother passed recently due to gastric cancer; Elke was her [employer]. Has been gaining weight and has not been eating as much. Activity has been less but is working on getting on the treadmill, she states she is feeling better doing the treadmill. 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 She is due for a depression screening; however, due to ongoing grieving, we will hold off on it for awhile. Discussed taking care of herself is very important, discussed ways to do that. No screenings due today. Ordered labwork to rule out medical causes for weight gain/fatigue. Follow up as needed. Grieving 06/09/2023 Assessment & Plan (06/09/2023 10:03 AM EST): Elke is being seen today for multiple concerns due to grieving the recent passing of her mom. Her mother was on hospice at her house and she had been taking care of her the last month of her life. Elke is concerned because she has been more short with her children/yelling and she feels very angry. She has concerns about her bipolar ramping up. We discussed about the stages of grieving and how, being her mother's caregiver, she has not been able to grieve about the diagnosis let alone grieve her . We discussed taking care of herself first and discussing with her and children that she is going to be having some difficult times ahead and that some days will be better than others. I discussed with her that this will be a long grieving process and that she will experience plenty of ups and downs and that it is all normal. We discussed that despite her medical hx/psychiatric diagnoses, grieving is a separate entity and that we will follow her closely and have her reach out to us if she feels that things are getting out of control. We discussed different coping mechanisms and to reach out to us at any time; to reach out to anyone. We discussed that she needs to find ways herself to grieve, not to listen to family members/other people about what is right or wrong. We have referred her to for therapy and I have reached out to [facility] to have her on board if Elke needs anything else/changes in meds. I discussed with her to please reach out to us for anything. I discussed with her that she has a lot on her plate and she needs to give herself time. We will follow up with her as needed. I discussed with her to reach out at any point. Chronic pain of both knees 04/14/2023 Overview (04/14/2023): Chronic b/l knee pain Abnormal MRI of the Right knee. S/p 6 weeks of PT with no improvement. Plan to follow up With [facility] re cortisone injections. Dyspnea on exertion 02/17/2023 Overview (04/14/2023): Schedule and perform PFTs to assess lung function and identify any underlying pulmonary issues contributing to SOB. Depending on PFT results, consider additional diagnostic tests such as a chest X-ray, CT scan, or echocardiogram to further investigate the cause of SOB. If indicated, refer to a supervisor liquefaction or sweat band separator for specialized assessment and management. Encouraged continued regular, gentle exercise to improve lung capacity and overall fitness. Assessment & Plan (02/17/2023 11:44 AM EDT): Getting worse over the last 2w. States she is having CP/dyspnea when walking any distances/going upstairs. States she stops, rests, and it goes away. She states it has been getting worse, which is what is concerning for her. She can walk from the parking lot to her work at [employer] and she is short of breath. She states she got a little short of breath when walking from our waiting room to the exam room this morning. She does not get short of breath while sitting/resting. Discussed the red flags to look out for and when to go to the ER. We ordered a stress test and referral to Cardiology. Bipolar II disorder, mild, d epressed, with mixed features, in full remission 10/27/2022 Assessment & Plan (06/09/2023 9:57 AM EST): Increasing concerns of depression due to grieving the loss of her mom. 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 Discussed that we could increase her Zoloft to 100mg but we also had a long discussion that changing/increasing her meds may not help her in the grieving process. We have also sent a referral to for therapy as well as sending a note to [facility] for further tx as needed. Right arm pain 07/10/2022 Breast pain, right 07/10/2022 Assessment & Plan (07/10/2022 4:42 PM EDT): Right breast pain, ongoing for 1 week, without injury or trauma. +maternal grandmother had breast cancer, never had genetic testing. Personal history of cervical cancer, which metastasized to uterus resulting in hysterectomy. No visible erythema to indicate cellulitis, but has intermittent fevers. Will check CBC. Offered empiric antibiotics - pt declines at this time, will see what CBC results. Will order mammogram with follow up ultrasound. Patient with a history of RLE DVT, on Xarelto. R upper arm is also sore, no visible swelling, but will get venous duplex to R/O RUE DVT. Reviewed when to go to ER, when to call clinic. Advised to call clinic if deciding she would like antibiotic treatment. Has follow up scheduled with PCP next month. 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 Eval with Rheum on 05/15/22 without active synovitis. + strong family history of RA. ? neurological component to symptoms and differential if Rhemm work-up is unrevealing. Told possible hEDS - unable to get in with genetics in the next 6-12 months. PTSD (post-traumatic stress disorder) 05/21/2022 Irregular heart beats 05/21/2022 DVT (deep venous thrombosis) 05/21/2022 Overview (02/23/2023): Previously managed on Xarelto. Now on ASA as monotherapy PVC's (premature ventricular contractions) 05/07 Overview (05/07/2022): 03/2022 ECG Assessment & Plan (02/17/2023 11:07 AM EDT): Having increased PVCs. Noting it on her Apple watch and physically. States she is feeling more of them now. Getting fatigued. Only 1 PVC on contiguous EKGs today. Hidradenitis suppurativa 05/07/2022 History of hysterectomy for cancer 04/23/2022 Gastroesophageal reflux disease without esophagi tis 04/23/2022 Body mass index (BMI) of 40.1 to 44.9 in adult 0 04/23/2022 History of cervical cancer 04/23/2022 History of DVT (deep vein thrombosis) 04/23/2022 Overview (05/23/2022): Unprovoked DVT 03/2022. Currently on Xarelto. Prior, hx of DVT @15 years old - thought to be from a blunt force trauma to the right spicer. Referral made to [facility] hematology/oncology 05/15/22. Palpitations 04/23/2022 Overview (05/23/2022): Follow up eval with Heart and vascular (Dr. Carlos Enrique Hairston) and cardiology on 07/01/22 ([facility]) Assessment & Plan (02/17/2023 11:08 AM EDT): Ongoing. States getting worse. Having difficulty with dyspnea on exertion. Stating they are waking her up at night. Ordered stress test. Referral to Cardiology. Herpes virus disease 03/30/2022 Chiari malformation type I 03/30/2022 Overview (02/23/2023): Arnold-Chiari malformation w/ tonsillar descent. No Cervical Syrinx Progressive symptoms of posterior HAs Seen by Neurology, Dr Janet Jerry 02/18/23 Plan to get a lumbar spine MRI to r/o tethered cord then proceed with Chiari decompression. Assessment & Plan (02/17/2023 11:45 AM EDT): Followed closely by Neuro. They would like to fix it surgically but she is not mentally at that point yet. ADHD, predominantly inattentive type 03/30/2022 Overview (10/27/2022): Notable improvement with Vyvanse Managed now also with Latuda for mood disorder Elevated antinuclear antibody (PAM) level 2021 Overview (08/05/2022): Seen by Rheumtology 05/15/22 @ [facility] PAM IFA: 1: 320 (07/08). Next follow up with Rheumatology 08/25/22. Irritable bowel syndrome wit h both constipation and diarrhea 01/10/2021 Fatigue 01/10/2021 History of 2019 novel coronavirus disease (COVID -19) 12/06/2020 Overview (05/23/2022): Subsequent infection 05/2021 Umbilical hernia without obstruction and without gangrene 09/22/2018 Overview (04/28/2022): Last Assessment & Plan: The patient has a reducible umbilical hernia. I would be happy to fix this for her after her tree topper/adnexal workup has been taken care of. Iron deficiency anemia 09/21/2018 Rectal bleeding 09/21/2018 Class 3 severe obesity due t o excess calories with serious comorbidity and body mass index (BMI) of 40.0 to 44.9 in adult 04/14/2013 Resolved Problems Problem Noted Date Diagnosed Date Resolved Date Situational anxiety 04/23/2022 05/23/19 23 Perioral dermatitis 03/30/2022 05/23/19 23 Major depressive disorder, r ecurrent severe without psychotic features 03/30/2022 05/23/2022 Cystic acne 03/30/2022 05/23/2022 Eczema 01/10/2021 05/23/2022 Mood disorder 01/10/2021 05/23/2022 Obsessive-compulsive disorder 09/21/2018 05/23/2022 Anxiety 09/21/2018 05/23/2022 Herpes 09/21/2018 05/23/2022 Right upper quadrant abdominal pain 09/21/2018 05/23/2022 Overactive child 09/21/2018 05/23/2022 Menorrhagia with irregular cycle 09/21/2018 05/23/2022 Irregular bleeding 09/21/2018 Encounters Date Type Department Care Team Description 12/13/2024 Travel 12/13/[address] [address] Cami Raymond MD Persistent depressive disorder; Anxiety; ADHD, predominantly inattentive type 11/16/2024 Telephone [facility] MEDICAL [address] [place] [address] Evelina Day Prior Authorization (ASYA Garg) 11/15/2024 4:20 PM EDT Telemedicine [address] [address] Cami Raymond MD ADHD, predominantly inattentive type (Primary Dx); BMI 45.0-49.9, adult (CMS/HCC); 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; 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 11/07/[address] [address] Cami Raymond MD Persistent depressive disorder; Anxiety; ADHD, predominantly inattentive type 10/31/2024 Results Follow-Up [address] [address] Cami Raymond MD BI US Breast Complete Bilateral 10/24/2024 Orders Only [facility] [address] [place] [address] Cami Raymond MD 10/18/[address] [address] Cami Raymond MD Gastroesophageal reflux disease without esophagitis; Persistent depressive disorder 10/04/2024 4:00 PM EDT Telemedicine [address] [phone] Cami Raymond MD Persistent depressive disorder; ADHD, predominantly inattentive type 09/28/2024 Travel 09/25/[address] [address] Cami Raymond MD Morbid obesity (CMS/HCC); BMI 45.0-49.9, adult (CMS/HCC) 09/25/[address] [address] Cami Raymond MD ADHD, predominantly inattentive type; Persistent depressive disorder; Anxiety 09/21/[address] [address] Cami Raymond MD Morbid obesity (CMS/HCC); BMI 45.0-49.9, adult (CMS/HCC) 09/13/2024 5:20 PM EDT Telemedicine [address] [address] Cami Raymond MD 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 (Primary Dx); 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; History of cervical cancer; History of hysterectomy for cancer; Pain of both breasts; Abnormal colonoscopy 09/12/2024 Travel 09/12/2024 Results Follow-Up [address] [address] Cami Raymond MD QuantiFERON-TB Gold Plus from Last 3 Months Immunizations Immunization Administration Dates Next Due DTP 07/14/1995, 6,02/18/1992,09/12,08/18/1991,05/15/1991,04/19/1991 ,03/15/1991,02/17/1991 DTaP / HiB / IPV 06/18/1995, 2,04/19/1991,02/17 HPV, Quadrivalent 12/09/2007,01/20/2007,11/05/19 07 Hep B, Adolescent or Pediatric 01/29/1998,1996,10/27/1996 HiB, unspecified 03/15/1992,09/13/1991, 2 Hib (HbOC) 04/19/1991 Hib (PRP-T) 06/18/1995, 2,09/13/1991,08/17,05/15/1991,03/15/1991,02/17/1991 INFLUENZA INJECTABLE QUADRIV ALANT CCIIV4 MDCK Multi-dose vial 01/05/2023 IPV 07/14/1995,05/15/1991,03/15/1991 Influenza Injectable Quadriv alant Preservative Free IIV4 MDCK 01/09/2021 Influenza injectable quadriv alent preservative free 01/05/2019 Influenza, IIV3, injectable 01/05/2024,1 ,01/09/2021,02/11,02/23/2013 Influenza, Unspecified 02/02/2022 Influenza, seasonal, injecta ble, preservative free 01/05/2024 MMR 01/14/2018, 6,07/18/2005,08/05,07/14/1995 MMRV 09/15/2015 Meningococcal MCV4, Unspecified 10/01/2006 Moderna Covid-19 Vaccine 12+ 06/06/2020,05/09/19 21 OPV, Trivalent 10/17/1996, 6,04/19/1991,02/17 PPD Test 08/13/2023, 4,02/21/2013,07/13 Polio, Unspecified 10/17/1996, 6,06/18/1995,02/17,05/15/1991,03/15/1991,02/17/1991 TD (adult), 2 Lf tetanus tox oid, preservative free, adsorbed 07/26/2003 Tdap 09/12/2015,06/20/2015,06/15/2013 Varicella 09/11/2016,07/14/1995,06/18/1995 Family History Medical History Relation Name Comments No Family History Brother 1 No Family History Brother 2 Atrial fibrillation Father afib, he art disease,Family history of Uterine cancer,Ovarian Cancer Breast cancer Maternal Grandmother Rheum arthritis Mother RA, OA B1 (A )- opiate abuse,,Family history of Uterine cancer,Ovarian Cancer Macular degeneration Paternal Grandfather Breast cancer Paternal Grandmother Relation Name Status Comments Brother 1 Alive Brother 2 Alive Father Alive Maternal Grandmother Mother Alive Paternal Grandfather Paternal Grandmother Social History Tobacco Use Types Packs/Day Years Used Date Smoking Tobacco: Never Passive Smoke Exposure: Never Smokeless Tobacco: Never Tobacco Cessation:Counseling Given: [...] Industry Job Start Date Job End Date [employer] Not on file Not on file Not on file Last Filed Vital Signs Vital Sign Reading Time Taken Comments Blood Pressure 131/85 08/30/2024 10:04 AM EDT Pulse 103 08/30/2024 10:04 AM EDT Temperature 36.4 C (97.6 F) 08/30/2024 10:04 AM EDT Respiratory Rate 16 08/30/2024 10:04 AM EDT Oxygen Saturation 99% 08/30/2024 10:04 AM EDT Inhaled Oxygen Concentration - - Weight 101 kg (223 lb) 11/15/2024 4:49 PM EDT Height 160 cm (5' 3 ) 11/15/2024 4:49 PM EDT Body Mass Index 39.5 11/15/2024 4:49 PM EDT Plan of Treatment Upcoming Encounters Date Type Department Care Team (Late st Contact Info) Description 12/20/2024 4:40 PM EDT Telemedicine [facility] MEDICAL [address] [place] [address] Cami Raymond MD [address] [place] [address] Health Maintenance Due Date Last Done Comments HIV Screening 1990 Alcohol/Substance Use Screening 2002 Family Planning (PISQ) 2005 Hepatitis C Screening 2008 Lipid Panel 08/19/2022 08/19/2017 Dental Oral Exam 03/27/2023 09/24/2022 SDOH Screening 04/23/2023 04/23/2022 Dental X-Ray: Bitewings 09/26/2023 09/24/2022 Dental Prophylaxis 10/29/2023 04/29/2023, 10/08/2022 COVID-19 Vaccine ( season) 2023 06/06/2020, 05/09/2020 Depression Monitoring 03/04/2024 09/02/2023, 024 Influenza Vaccine (#1) 2024 , 01/05/2024, 01/05/2023, Additional history exists Disability Screening 05/07/2025 05/07/2024 Tobacco Screening 05/08/2025 05/08/2024 DTaP/Tdap/Td Vaccines (9 - Td or Tdap) 09/11/2025 09/12/2015, 06/20/2015, 06/15/2013, Additional history exists Dental X-Ray: Full Mouth 09/25/2025 09/24/2022 Zoster Vaccines (1 of 2) 2040 RSV Patients and Patients Aged 60 years or older (1 - 1-dose 75+ series) 2065 HIB Vaccines Completed 06/18/1995, 04/1995, 03/15/1992, Additional history exists IPV Vaccines Completed 10/17/1996, 04/1996, 07/14/1995, Additional history exists Meningococcal Vaccine Aged Out 10/01/2006 No wicho adriane eligible based on patient's age to complete this topic HPV Vaccines Completed 12/09/2007, 07/2006, 11/04/2006 Hepatitis B Vaccines Completed 11/20/2024, 07/30/2023, 01/29/1998, Additional history exists Hepatitis A Vaccines Aged Out No long er eligible based on patient's age to complete this topic Meningococcal B Vaccine Aged Out No l onger eligible based on patient's age to complete this topic Pneumococcal Vaccine: Pediatrics (0 to 5 Years) and At-Risk Patients (6 to 49) Years Aged Out No longer eligible based on patient's age to complete this topic RSV under 20 months Aged Out No longe r eligible based on patient's age to complete this topic Rotavirus Vaccines Aged Out No longer eligible based on patient's age to complete this topic Procedures Procedure Name Priority Date/Time Associated Diagnosis Comments BI US BREAST LIMITED BILATERAL Routine 10/24/2024 1:14 PM EDT BI MAMMOGRAM DIAGNOSTIC BILATERAL Routine 10/24/2024 12:40 PM EDT 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 Pain of both breasts BI US BREAST COMPLETE BILATERAL Routine 10/24/2024 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 Pain of both breasts HEPATITIS B SURFACE AB QNT Routine 07/30/2023 2:42 PM EDT Full PROPHYLAXIS - ADULT Routine 04/29/2023 9:40 AM EST INTRAORAL - COMPLETE SERIES OF RADIOGRAPHIC IMAGES Routine 09/24/2022 2:00 PM EDT COMPREHENSIVE ORAL EVALUATION - NEW OR ESTABLISHED PATIENT Routine 09/24/2022 2:00 PM EDT LIPID PANEL, STANDARD Routine 08/19/2017 from Last 3 Months or Most Recently Relevant to Health Maintenance Results * BI US Breast Limited Bilateral (10/24/2024 1:14 PM EDT) Anatomical Region Laterality Modality Breast Bilateral Ultrasound 10/24/2024 1:14 PM EDT Narrative 10/24/2024 1:43 PM EDT Bilateral full field digital breast tomosynthesis performed on a [employer] dimension with I CAD second look 7.2-H computer aided detection with left breast ultrasound dated October 24, 2024. Comparison films are from July 30, 2022. HISTORY: Pain bilaterally. Density: The breasts are heterogeneously dense, which may obscure small masses. FINDINGS: No suspicious mass, nodule, architectural distortion or grouped microcalcifications are seen. No skin thickening or nipple retraction is appreciated. Targeted bilateral breast ultrasound shows no evidence of solid or cystic abnormality. IMPRESSION: No mammographic or sonographic evidence of malignancy. Recommendation: Routine annual mammographic screening. Examination 57906, 43811 and G0204. BI-RADS one negative. Letter L3. Thank you for allowing me to participate in the care of this patient. WSN: [id number] Ordering Physician: Cami Raymond Dictated By: Familia Fleming MD Dictated Date/Time: 10/24/24 1:40 pm Reviewed By: Familia Fleming MD Signed By: Familia Fleming MD Signed Date/Time: 10/24/24 1:40 pm Transcribed By: VIDAL Transcribed Date/Time: 10/24/24 1:11 pm Procedure Note Donotuseinterpreter, Image - 10/24/2024 Bilateral full field digital breast tomosynthesis performed on a [place] dimension with I CAD second look 7.2-H computer aided detection with leftbreast ultrasound dated October 24, 2024. Comparison films are from July 30, 2022. HISTORY: Pain bilaterally. Density: The breasts are heterogeneously dense, which may obscure smallmasses. FINDINGS: No suspicious mass, nodule, architectural distortion orgrouped microcalcifications are seen. No skin thickening or nipple retraction is appreciated. Targeted bilateral breast ultrasound shows no evidence of solid orcystic abnormality. IMPRESSION: No mammographic or sonographic evidence of malignancy. Recommendation:Routine annual mammographic screening. Examination 00709, 44706 and G0204. BI-RADS one negative. Letter L3. Thank you for allowing me to participate in the care of this patient. WSN: [id number] Ordering Physician: Cami Raymond Dictated By: Familia Fleming MD Dictated Date/Time: 10/24/24 1:40 pm Reviewed By: Familia Fleming MD Signed By: Familia Fleming MD Signed Date/Time: 10/24/24 1:40 pm Transcribed By: CSKelsie Transcribed Date/Time: 10/24/24 1:11 pm us Cami Raymond MD IMG US PROCEDURES Final Result * BI Mammogram Diagnostic Bilateral (10/24/2024 12:40 PM EDT) Anatomical Region Laterality Modality Breast Bilateral Mammography 10/24/2024 12:4 0 PM EDT Narrative 10/24/2024 1:43 PM EDT Bilateral full field digital breast tomosynthesis performed on a [employer] dimension with I CAD second look 7.2-H computer aided detection with left breast ultrasound dated October 24, 2024. Comparison films are from July 30, 2022. HISTORY: Pain bilaterally. Density: The breasts are heterogeneously dense, which may obscure small masses. FINDINGS: No suspicious mass, nodule, architectural distortion or grouped microcalcifications are seen. No skin thickening or nipple retraction is appreciated. Targeted bilateral breast ultrasound shows no evidence of solid or cystic abnormality. IMPRESSION: No mammographic or sonographic evidence of malignancy. Recommendation: Routine annual mammographic screening. Examination 28908, 71204 and G0204. BI-RADS one negative. Letter L3. Thank you for allowing me to participate in the care of this patient. WSN: [id number] Ordering Physician: Cami Raymond Dictated By: Familia Fleming MD Dictated Date/Time: 10/24/24 1:40 pm Reviewed By: Familia Fleming MD Signed By: Familia Fleming MD Signed Date/Time: 10/24/24 1:40 pm Transcribed By: CSKelsie Production Corrugator Date/Time: 10/24/24 1:11 pm Birads: Procedure Note Donotuseinterpreter, Image - 10/24/2024 Bilateral full field digital breast tomosynthesis performed on a Hybrid Logic dimension with I CAD second look 7.2-H computer aided detection with leftbreast ultrasound dated October 24, 2024. Comparison films are from July 30, 2022. HISTORY: Pain bilaterally. Density: The breasts are heterogeneously dense, which may obscure smallmasses. FINDINGS: No suspicious mass, nodule, architectural distortion orgrouped microcalcifications are seen. No skin thickening or nipple retraction is appreciated. Targeted bilateral breast ultrasound shows no evidence of solid orcystic abnormality. IMPRESSION: No mammographic or sonographic evidence of malignancy. Recommendation:Routine annual mammographic screening. Examination 59571, 68435 and G0204. BI-RADS one negative. Letter L3. Thank you for allowing me to participate in the care of this patient. WSN: [id number] Ordering Physician: Cami Raymond Dictated By: Familia Fleming MD Dictated Date/Time: 10/24/24 1:40 pm Reviewed By: Familia Fleming MD Signed By: Familia Fleming MD Signed Date/Time: 10/24/24 1:40 pm Transcribed By: CSKelsie Production Corrugator Date/Time: 10/24/24 1:11 pm Birads: us Cami Raymond MD IMG BI PROCEDURES Final Result * BI US Breast Complete Bilateral (10/24/2024) Anatomical Region Laterality Modality Breast Bilateral Ultrasound Cami Raymond MD IMG US PROCEDURES Final Result * Hepatitis B Surface Antibody, Quantitative (07/30/2023 2:42 PM EDT) [facility] Hepatitis B Surf Ab Quant >1000.0 Immunity>9 .9 mIU/mL [facility] 1 Comment: Status of Immunity Anti-HBs Level Inconsistent with Immunity 0.0 - 9.9 Consistent with Immunity >9.9 07/30/2023 2:42 PM EDT 07/30/2023 Narrative [facility] 1 - 07/31/2023 10:05 AM EDT Performed at: [facility] [id number] Garage Door Technician: Ludivina Rivas MD, Phone: [phone] Clari Bauman [facility] LAB BLOOD ORDERABLES F inal Result [facility] 1 * Lipid Panel, Standard (08/19/2017) [facility] Triglycerides 100 40 - 160 mg/dL Cholesterol 183 0 - 200 mg/dL HDL Cholesterol 54 35 - 70 mg/dL LDL Cholesterol 109 mg/dL Blood Venous blood specimen / Unknown Historical Provider LAB BLOOD ORDERABLES Ally l Result from Last 3 Months or Most Recently Relevant to Health Maintenance Insurance [facility] DENTAL - HSN FULL (MEDICAID) D[facility]AL-[facility] MEDICAID STAND ADULT Advance Directives Documents on File Type Date Recorded Patient Casino Cage Supervisor Expl anation HealthCare Proxy 08/26/2023 1:55 PM HCP Care Teams Registered Nurse Step Down Relationship Specialty Start Date End Date Cami Raymond MD [address] [place] [address] PCP - General Family Medicine 12/30/23 Cami Raymond MD [address] [place] [address] Referring Physician Family Medicine 08/10/23 Lilly Arndt MD [address] [place] [address] Referring Physician Internal Medicine 08/10/[address] Dietitian Nutrition 08/10/23 Shae Ayers Health Navigator 09/04/24
--- OUTSIDE RECORDS SUMMARY | 2024-12-13 15:02 | XMS_ITS | Encounter Summary ---
Author Organization [facility] Address [address] [facility] [address] [place] [address] Phone Care Team Providers Care Federal District Clerk Name Role Phone Cassy Clark NEWS INTERNSHIP Unavailable [phone] Sharon Orantes DECISION ANALYST Unavailable Kim Lemon MD Unavailable [phone] Denisse Greenberg MD Unavailable Chance Heart MD Unavailable [phone] Domenico Fuller MD Unavailable Wallace Gutierrez NEWS INTERNSHIP Unavailable Chan Westfall MD Unavailable Vince Ba NEWS INTERNSHIP Unavailable Chan Smith MD Unavailable Tom Quiroz MD, MPH Primary Care Provider + Tom Quiroz MD, MPH Unavailable [phone] Bailee Sierra PA-C Unavailable Clari Mcknight NP Primary Care Pr ovider Cami Raymond MD Unavailable Cami Raymond MD Unavailable Lilly Arndt MD Unavailable [phone] Cami Raymond MD Unavailable [phone] Lilly Arndt MD Unavailable [phone] Cami Raymond MD Primary Care Provider Encounter Details Date Type Department Care Team (Latest Contact Info) Description 10/11/2018 Transcribe Orders Virtual Department [address] [place] [address] Ray Couch MD [address] [place] [address] [email or web address] Abdominal pain, left upper quadrant (Primary Dx) Social History Tobacco Use Types Packs/Day Years Used Date Smoking Tobacco: Never Smokeless Tobacco: Never Alcohol Use Standard Drinks/Week Comments Not Currently 0 (1 standard drink = 0.6 oz pur e alcohol) Comments No Sex and Gender Information Value Date Recorded Sex Assigned at Female 09/18/2018 10:51 AM EDT Legal Sex Female 7:10 AM EDT Gender Identity Female 09/18/2018 10:51 AM EDT Sexual Orientation Straight 09/18/2018 10 :51 AM EDT documented as of this encounter Plan of Treatment Not on file documented as of this encounter Visit Diagnoses Diagnosis Abdominal pain, left upper quadrant- Primary documented in this encounter Care Teams Federal District Clerk Relationship Specialty Start Date End Date Tom Quiroz MD, MPH [address] [place] [address] [email or web address] PCP - General Family Medicine 08/30/18 09/23/22 Clari Mcknight NP [address] [place] [address] PCP - General Nurse Practitioner 09/24/22 03/28/24 Cami Raymond MD [address] [place] [address] PCP - General Family Medicine 03/29/24 Cassy Clark, ORLY [address] [place] [address] Historical LMR Provider 02/04/17 04/26/21 Sharon Orantes FNP [address] [place] [address] [address] [place] [address] [email or web address] Historical LMR Provider 02/04/17 04/26/21 Kim Lemon MD [address] [place] [address] Historical LMR Provider 02/04/17 Denisse Greenberg MD [address] [place] [address] [address] [place] [address] Historical LMR Provider 02/04/17 04/26/21 Chance Heart MD [address] [place] [address], [address] [place] [address] Historical LMR Provider 02/04/17 2 Domenico Fuller MD [address] [place] [address] Historical LMR Provider 02/04/17 04/26/21 Wallace Gutierrez CNP [address] [place] [address] [email or web address] Historical LMR Provider 02/04/17 04/26/21 Chan Westfall MD [address] [place] [address] [address] [place] [phone] [email or web address] Historical LMR Provider 02/04/17 04/26/21 Vince Ba, ORLY [address] [facility], [address] [place] [address] [email or web address] Historical LMR Provider 02/04/17 Chan Smith MD [address] [place] [address] [email or web address] Historical LMR Provider 02/04/17 04/26/21 Tom Quiroz MD, MPH [address] [place] [address] [email or web address] Insurance Assigned Provider 11/19/18 09/23/19 Bailee Sierra PA-C [address] [place] [address] [email or web address] Physician Process Expert Hematology 07/24/22 Cami Raymond MD [address] [place] [address] [email or web address] Insurance Assigned Provider 04/24/23 05/29/23 Cami Raymond MD [address] [place] [address] Insurance Assigned Provider 07/24/23 08/28/23 Lilly Arndt MD [address] [place] [address] Insurance Assigned Provider 08/28/23 10/23/23 Cami Raymond MD [address] [place] [address] Insurance Assigned Provider 10/23/23 11/27/23 Lilly Arndt MD [address] [place] [address] Insurance Assigned Provider 11/27/23 documented as of this encounter Additional Source Comments The information contained in this document represents components of the legal health record. It is not the complete legal health record.[facility]
--- OUTSIDE RECORDS SUMMARY | 2024-12-13 15:02 | XMS_ITS | Encounter Summary ---
Author Organization [employer] Address [address] [facility] 7t [place] [address] Care Team Providers Care Pin Ticket Machine Operator Name Role Phone Clari Bauman Primary Care Provider Unavailable Ginny Christopher Unavailable Unavailable Cami Raymond MD Unavailable [phone] Lilly Arndt MD Unavailable Yumiko Costa RD Unavailable Unavailable Cami Raymond MD Primary Care Provider [phone] Shae Ayers Unavailable Unavailable Encounter Details Date Type Department Care Team (Late st Contact Info) Description 02/18/2023 Orders Only [facility] [address] [place] [address] Clari Bauman FNP Social History Tobacco Use Types Packs/Day [...] 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 Not on file Not on file documented as of this encounter Plan of Treatment Upcoming Encounters Date Type Department Care Team (Late st Contact Info) Description 12/20/2024 4:40 PM EDT Telemedicine [facility] MEDICAL [address] [place] [address] Cami Raymond MD [address] [place] [address] documented as of this encounter Procedures Procedure Name Priority Date/Time Associated Diagnosis Comments PROTHROMBIN TIME-INR Routine 02/17/2023 documented in this encounter Results * Prothrombin Time-INR (02/17/2023) Blood Venous blood specimen / Unknown Clari LUNA LAB BLOOD ORDERABLES F inal Result documented in this encounter Visit Diagnoses Not on filedocumented in this encounter Additional Health Concerns Assessment Noted Time PHQ-9 Depression Total Score: 18 023 2:45 PM EDT documented as of this encounter Care Teams Pin Ticket Machine Operator Relationship Specialty Start Date End Date Clari Bauman FNP PCP - General Family Medicine 03/30/22 12/29/23 Cami Raymond MD [address] [place] [address] PCP - General Family Medicine 12/30/23 Ginny Christopher Community Health Worker 07/30/22 5 Cami Raymond MD [address] [place] [address] Referring Physician Family Medicine 08/10/23 Lilly Arndt MD [address] [place] [address] Referring Physician Internal Medicine 08/10/[address] Dietitian Nutrition 08/10/23 Shae Ayers Health Navigator 09/04/24 documented as of this encounter
--- OUTSIDE RECORDS SUMMARY | 2024-12-13 15:02 | XMS_ITS | Encounter Summary ---
Author Organization [employer] Address [address] [facility] 7t [place] [address] Care Team Providers Care Vine Pruner Name Role Phone WyattClari Lowry SUSHI CHEF Primary Care Provider Unavailable Ginny Christopher Unavailable Unavailable Cami Raymond MD Unavailable [phone] Lilly Arndt MD Unavailable Yumiko Costa RD Unavailable Unavailable Cami Raymond MD Primary Care Provider [phone] Shae Ayers Unavailable Unavailable Reason for Visit * Reason Comments Med Refill Encounter Details Date Type Department Care Team (Late st Contact Info) Description 12/29/[address] [facility] MEDICAL [address] [place], [place] [phone] Cami Raymond MD [address] [place] [address] Bipolar II disorder, mild, depressed, with mixed features, in full remission (CMS/HCC) Social History Tobacco Use Types Packs/Day Years Used Date Smoking Tobacco: Never Passive Smoke Exposure: Never Smokeless Tobacco: Never Alcohol Use Standard Drinks/Week Comments Never 0 (1 standard drink = 0.6 oz pur e alcohol) Depression Answer Date Recorded Patient Health Questionnaire-9 Score 18 09/29/2022 Depression Answer Date Recorded Patient Health Questionnaire-2 Score 0 09/29/2022 Comments No Sex and Gender Information Value Date Recorded Sex Assigned at Female 03/30/2022 9:15 AM EST Legal Sex Female 8:33 PM EDT Gender Identity Female 03/30/2022 9:15 AM EST Sexual Orientation Straight 06/01/2022 10 :54 AM EST 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 * Telephone Encounter - Josselin Ring - 12/29/2022 12:11 PM EDT Rx queued Ready for review and send documented in this encounter Plan of Treatment Upcoming Encounters Date Type Department Care Team (Late st Contact Info) Description 12/20/2024 4:40 PM EDT Telemedicine [facility] MEDICAL [address] [place] [address] Cami Raymond MD [address] [place] [address] documented as of this encounter Visit Diagnoses Diagnosis Bipolar II disorder, mild, depressed, with mixed features, in full remission (CMS/HCC) documented in this encounter Additional Health Concerns Assessment Noted Time PHQ-9 Depression Total Score: 18 023 2:45 PM EDT documented as of this encounter Care Teams Vine Pruner Relationship Specialty Start Date End Date Clari Bauman FNP PCP - General Family Medicine 03/30/22 12/29/23 Cami Raymond MD [address] [place] [address] PCP - General Family Medicine 12/30/23 Ginny Christopher Community Health Worker 07/30/22 5 Cami Raymond MD [address] [place] [address] Referring Physician Family Medicine 08/10/23 Lilly Arndt MD [address] [place] [address] Referring Physician Internal Medicine 08/10/[address] Dietitian Nutrition 08/10/23 Shae Ayers [facility] Navigator 09/04/24 documented as of this encounter
--- OUTSIDE RECORDS SUMMARY | 2024-12-13 15:02 | XMS_ITS | Encounter Summary ---
Author Organization [employer] Address [address] [facility] 7t [place] [address] Care Team Providers Care Radio Station Operator Name Role Phone Cami Raymond MD Unavailable [phone] Lilly Arndt MD Unavailable Yumiko Costa RD Unavailable Unavailable Cami Raymond MD Primary Care Provider [phone] Shae Ayers Unavailable Unavailable Reason for Visit * Reason Onset Date Comments Med Refill 12/13/2024 Encounter Details Date Type Department Care Team (Late st Contact Info) Description 12/13/2024 Refill [facility] [address] [place] [address] Cami Raymond MD [address] [place] [address] Persistent depressive disorder; Anxiety; ADHD, predominantly inattentive type Social History Tobacco Use Types Packs/Day Years [...] 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 Last UTOX: 08.30.24 CSA Date: 08.30.24 DNF Date: Due documented in this encounter Plan of Treatment Upcoming Encounters Date Type Department Care Team (Late st Contact Info) Description 12/20/2024 4:40 PM EDT Telemedicine [facility] [address] [place], [place] [phone] Cami Raymond MD [address] [place], [place] documented as of this encounter Visit Diagnoses Diagnosis Persistent depressive disorder Anxiety Anxiety state, unspecified ADHD, predominantly inattentive type Attention deficit disorder without mention of hyperactivity documented in this encounter Additional Health Concerns Assessment Noted Time PHQ-9 Depression Total Score: 17 024 1:12 PM EDT documented as of this encounter Care Teams Radio Station Operator Relationship Specialty Start Date End Date Cami Raymond MD [address] [place] [address] PCP - General Family Medicine 12/30/23 Cami Raymond MD [address] [place] [address] Referring Physician Family Medicine 08/10/23 Lilly Arndt MD [address] [place] [address] Referring Physician Internal Medicine 08/10/[address] Dietitian Nutrition 08/10/23 Shae Ayers Health Navigator 09/04/24 documented as of this encounter
== END 2024-12-13 14:50 | disposition home or self-care (01) ==
PROVIDERS: PCP Internal Medicine; Visit Provider Nurse Practitioner Family
DX: K58.1 Irritable bowel syndrome with constipation (principal); R10.13 Epigastric pain; R14.0 Abdominal distension (gaseous)
CPT/HCPCS: 99204

== ENCOUNTER 2024-12-13 14:04 | Outpatient (REF) | payer OTHER, MEDICAID, SELFPAY ==
[2024-12-13 17:03] LABS: Alanine Aminotransferase 23 U/L (0-31); Albumin Level 4.7 g/dL (3.5-5.0); Alkaline Phosphatase 66 U/L (39-117); Aspartate Amino Transferase 21 U/L (5-31); Lipase 24 U/L (8-78); Total Protein 7.2 g/dL (6.5-8.0)
[2024-12-13 17:23] LABS: Folate 10.7 ng/mL (> or = 4.0); Vitamin B12 1713 pg/mL (200-900)
[2024-12-14 19:43] LABS: Transglutaminase Ab IgG <1.0 U/mL
[2024-12-20 16:04] LABS: Vitamin D 25-OH, D2 <4 ng/mL; Vitamin D 25-OH, D3 137 ng/mL; Vitamin D 25-OH, Total 137 ng/mL (30-100)
== END 2024-12-13 14:05 | disposition home or self-care (01) ==
LOC: HO.LAB 14:04
PROVIDERS: PCP Internal Medicine; Visit Provider Nurse Practitioner Family
DX: K58.2 Mixed irritable bowel syndrome (principal); K59.04 Chronic idiopathic constipation; E55.9 Vitamin D deficiency, unspecified; R74.01 Elevation of levels of liver transaminase levels; Z12.11 Encounter for screening for malignant neoplasm of colon
CPT/HCPCS: 36415; 80076; 82306; 82607; 82746; 83690; 84443; 86364

== ENCOUNTER 2025-03-28 09:11 | Outpatient (REF) | payer OTHER, MEDICAID, SELFPAY ==
[2025-03-28 11:18] LABS: Alanine Aminotransferase 28 U/L (0-31); Albumin Level 4.8 g/dL (3.5-5.0); Alkaline Phosphatase 60 U/L (39-117); Aspartate Amino Transferase 22 U/L (5-31); Total Protein 7.4 g/dL (6.5-8.0)
[2025-03-28 11:50] LABS: Folate 13.1 ng/mL (> or = 4.0); Vitamin B12 > 2000 pg/mL (200-900)
== END 2025-03-28 09:12 | disposition home or self-care (01) ==
LOC: HO.LAB 09:11
PROVIDERS: PCP Family Medicine; Visit Provider Nurse Practitioner Family
DX: K59.04 Chronic idiopathic constipation (principal); K58.1 Irritable bowel syndrome with constipation; Z12.11 Encounter for screening for malignant neoplasm of colon; Z79.899 Other long term (current) drug therapy; R74.01 Elevation of levels of liver transaminase levels; K21.9 Gastro-esophageal reflux disease without esophagitis; E55.9 Vitamin D deficiency, unspecified
CPT/HCPCS: 36415; 80076; 82306; 82607; 82746

== ENCOUNTER 2025-03-28 09:11 | Outpatient (AMB) | payer OTHER, MEDICAID, SELFPAY ==
--- NOTE | 2025-03-28 09:16 | A.OFFVIS_ITS ---
Vital Signs 03/28/25 09:27 Height 5 ft 3 in Weight 184 lb 14 oz BMI 32.7 BP 124/64 Blood Pressure Location Rt brachial Position Sitting Pulse 94 Pulse Source Pulse Oximeter Pulse Oximetry (%) 100 Oxygen Delivery Method Room Air Intake Visit Reasons: IBS + GERD mgmt. Add on from CL. Intake Note: Est pt for mgmt of IBS + GERD w/ abd pain. CC: C/O intermittent constipation, LLQ + epigastric pain, nausea w/o vomiting, GERD persistence despite current therapies. Surgical Instrument Repair Specialist Required: No Accompanied by: Self / Same As Patient Allergies mushroom Allergy (Mild, Verified 03/28/25 09:22) Anaphylaxis Penicillins Allergy (Mild, Verified 03/28/25 09:22) Anaphylaxis cephalexin (From Keflex) Allergy (Verified 03/28/25 09:22) Unknown HPI HPI IBS + GERD mgmt. Add on from CL.: Details: LAST VISIT: IBS (irritable bowel syndrome) Postprandial epigastric pain Abdominal bloating Chronic idiopathic constipation Screen for colon cancer Plan Will check transglutaminase, thyroid study, vitamin-D, B12, folate, liver panel and lipase. Patient will continue taking pantoprazole daily. Avoid dietary triggers and late night snacking. Patient was encouraged to take her levothyroxi ne upon awakening and wait an hour before she takes her pantoprazole. She can take famotidine as needed. Patient was encouraged to take MiraLax with fiber in the morning after breakfast. Increase fluid intake and activity to promote better bowel motility. She can also try prunes. She may need a stimulant if she will have trouble going. Patient will call us. She will follow-up with us in 2-3 months. Message sent to surgical schedulers to call patient for procedure. Patient is agreeable to current plan of care and verbalizes understanding of instructions. She was given the opportunity to ask questions and all questions answered. ? Thank you for allowing me to participate in her care Orders Transglutaminase Ab IgG Today R10.9 TSH reflex Free T4 Today K59.00 Vitamin D 25-OH (D2 and D3) Today E55.9 Transglutaminase IgA Today R10.9 Vitamin B12 and Folate Today R19.7 Liver Panel Today R74.01 Lipase Today R10.9 New famotidine (Pepcid) 20 mg PO BEDTIME 30 tabs 3RF K21.9 TODAY'S VISIT: Patient is here today for follow-up. Patient reports very stressful at school. 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 Patient reports that she is taking fiber gummies and is moving her bowels better, however she feels like she does not empty her bowels completely. Patient reports abdominal pain, and nausea. Patient does notice that her nausea is worse when she is stressed out. Patient is on GLP 1 and is doing well. Eating smaller meals and more often. She noticed that she gets full quickly but understands that this is from the medication. Patient was placed few months ago. Patient lost 30 lb since then. Patient denies melena, hematochezia, unintentional weight loss or ribbon like stools. Patient reports occasional dyspepsia without dysphagia or odynophagia. PFS Medical History IBS (irritable bowel syndrome) Uterine neoplasm Surgical History Hx of esophagogastroduodenoscopy Hx of colonoscopy H/O cervical discectomy History of hysterectomy History of cholecystectomy Family History Maternal Grandmother Uterine cancer Breast cancer Paternal Grandmother Uterine cancer Maternal Grandfather Prostate cancer Lung cancer Father No problems noted. Social History Alcohol intake: current Alcohol intake frequency: does not drink Patient Tobacco Use Status: Never used Tobacco Female Reproductive History Menstrual Age of Menarche: 9 Physical Exam Vital Signs: BMI result Body Mass Index 32.7 Assessment & Plan Assessment & Plan (1) IBS (irritable bowel syndrome): Code(s): K58.9 - Irritable bowel syndrome, unspecified Category: Medical Qualifiers: Irritable bowel syndrome type: with constipation Qualified Code(s): K58.1 - Irritable bowel syndrome with constipation (2) Postprandial epigastric pain: Code(s): R10.13 - Epigastric pain (3) Abdominal bloating: Code(s): R14.0 - Abdominal distension (gaseous) (4) Chronic idiopathic constipation: Code(s): K59.04 - Chronic idiopathic constipation (5) Encounter for screening for malignant neoplasm of colon: Code(s): Z12.11 - Encounter for screening for malignant neoplasm of colon Plan Will repeat liver panel and vitamin-D and B12 as last time her levels were elevated. Patient will be referred to a brush loader and handle attacher to help take better meals. Continue omeprazole daily. May take Zofran as needed. Patient was encouraged to eat smaller meals and more often. Avoid dietary triggers and bedtime snacking. Staying upright for minimum 3 hours after meals discussed with patient. Patient will follow-up with us after the procedure. Patient is agreeable to current plan of care and verbalizes understanding of instructions. She was given the opportunity to ask questions and all questions answered. Thank you for allowing me to participate in her care Orders: Orders Vitamin D 25-OH (D2 and D3) Today E55.9 - Vitamin D deficiency, unspecified Vitamin B12 and Folate Today R19.7 - Diarrhea, unspecified Liver Panel Today R74.01 - Elevation of levels of liver transaminase levels Referrals Dog License Officer Supervisor Nutrition Referral R11.0 - Nausea Medications: New polyethylene glycol 3350 (Miralax) As directed by gastroenterology department at [facility] 238 grams PO ONCE 238 grams 0RF Z12.11 - Encounter for screening for malignant neoplasm of colon bisacodyl (Dulcolax (bisacodyl)) 10 mg (2 x 5 mg) PO BEDTIME 180 tabs 4RF omeprazole 40 mg PO DAILY 30 caps 6RF K21.9 - Gastro-esophageal reflux disease without esophagitis ondansetron 4 mg PO Q8H PRN 20 tabs 0RF nausea and vomiting R11.0 - Nausea Discontinued pantoprazole take one tablet half an hour before breakfast Discontinued Reason: Doctor's Order 40 mg PO DAILY 30 tabs 2RF K21.9 - Gastro-esophageal reflux disease without esophagitis Coding Level of Care Code Est Pt Level 3 (75482) Diagnoses Irritable bowel syndrome with constipation K58.1 Irritable bowel syndrome type: with constipation Postprandial epigastric pain R10.13 Abdominal bloating R14.0 Chronic idiopathic constipation K59.04 Encounter for screening for malignant neoplasm of colon Z12.11 Time Spent (min) 30 Comment 20 minutes spent with patient and additional 10 minutes spent reviewing her records
[2025-03-28 09:27] VITALS: BP 124/64; PULSE 94; O2SAT 100; BMI 32.7
== END 2025-03-28 10:35 | disposition home or self-care (01) ==
LOC: HO.HGI 09:12
PROVIDERS: PCP Family Medicine; Visit Provider Nurse Practitioner Family
DX: K58.1 Irritable bowel syndrome with constipation (principal); R10.13 Epigastric pain; R14.0 Abdominal distension (gaseous); K59.04 Chronic idiopathic constipation
CPT/HCPCS: 99213

== ENCOUNTER 2025-04-13 08:05 | Day surgery (SDC) | payer OTHER, MEDICAID, SELFPAY ==
--- OUTSIDE RECORDS SUMMARY | 2025-04-04 18:46 | XMS_ITS | Encounter Summary ---
Author Organization [employer] Address [address] [facility] 7t [place] [address] Care Team Providers Care Postal Carrier Name Role Phone Clari Bauman Primary Care Provider Unavailable Ginny Christopher Unavailable Unavailable Cami Raymond MD Unavailable Lilly Arndt MD Unavailable Yumiko Costa RD Unavailable Unavailable Cami Raymond MD Primary Care Provider [phone] Shae Ayers Unavailable Unavailable Encounter Details Date Type Department Care Team (Late st Contact Info) Description 10/14/2023 Orders Only [facility] MEDICAL [address] [place] [address] Taylor Márquez FNP Social History Tobacco Use [...] 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 on file Not on file documented as of this encounter Plan of Treatment Not on file documented as of this encounter Visit Diagnoses Not on filedocumented in this encounter Additional Health Concerns Assessment Noted Time PHQ-9 Depression Total Score: 17 024 1:12 PM EDT documented as of this encounter Care Teams Postal Carrier Relationship Specialty Start Date End Date Clari Bauman FNP PCP - General Family Medicine 03/30/22 12/29/23 Cami Raymond MD [address] [place] [address] PCP - General Family Medicine 12/30/23 Ginny Christopher Community Health Worker 07/30/22 5 Cami Raymond MD [address] [place] [address] Referring Physician Family Medicine 08/10/23 Lilly Arndt MD [address] [place] [address] Referring Physician Internal Medicine 08/10/[address] Dietitian Nutrition 08/10/23 Shae Ayers Health Navigator 09/04/24 documented as of this encounter
--- OUTSIDE RECORDS SUMMARY | 2025-04-04 18:46 | XMS_ITS | Encounter Summary ---
Author Organization [employer] Address [address] [facility] 7t [place] [address] Care Team Providers Care Geophysical Observer Name Role Phone Clari Bauman Primary Care Provider Unavailable Ginny Christopher Unavailable Unavailable Cami Raymond MD Unavailable [phone] Lilly Arndt MD Unavailable Yumiko Costa RD Unavailable Unavailable Cami Raymond MD Primary Care Provider [phone] Shae Ayers Unavailable Unavailable Encounter Details Date Type Department Care Team (Late st Contact Info) Description 07/14/2022 Orders Only [facility] MEDICAL [address] [place] [address] Clari Bauman FNP Elevated antinuclear antibody (PAM) [...] 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 No / Unsure 07/09/2022 4:43 PM EDT documented as of this encounter Plan of Treatment Not on file documented as of this encounter Procedures Procedure [...] * Lupus anticoagulant (07/30/2023 2:41 PM EDT) PTT-LA Screen 35.7 0.0 - 43.5 sec [facility] 1 dRVVT Screen 35.6 0.0 - 47.0 sec [facility] 1 Lupus Anticoagulant Comment: [facility] Comment:No lupus anticoagula nt was detected. Blood Venous blood specimen / Unknown 07/30/2023 2:41 PM EDT 07/30/2023 Narrative [facility] 1 - 08/02/2023 12:05 PM EDT Performed at: 01 - [facility] [id number] Furnace Checker: Mauri Lew MD, Phone: [phone] Clari Bauman [facility] LAB BLOOD ORDERABLES F inal Result Performing Organization Address [facility]/ZIP Co de Phone Number [facility] 1 * DNA (DS) Antibody (10/16/2022 10:10 AM EDT) Blood Venous blood specimen / Unknown Clari LUNA LAB BLOOD ORDERABLES F inal Result EXTERNAL LAB documented in this encounter Visit Diagnoses Diagnosis Elevated antinuclear antibody (PAM) level- Primary Other and unspecified nonspecific immunological findings History of DVT (deep vein thrombosis) documented in this encounter Care Teams Geophysical Observer Relationship Specialty Start Date End Date Clari Bauman FNP PCP - General Family Medicine 03/30/22 12/29/23 Cami Raymond MD [address] [place] [address] PCP - General Family Medicine 12/30/23 Ginny Christopher [facility] Worker 07/30/22 5 Cami Raymond MD [address] [place] [address] Referring Physician Family Medicine 08/10/23 Lilly Arndt MD [address] [place] [address] Referring Physician Internal Medicine 08/10/[address] Dietitian Nutrition 08/10/23 Shae Ayers Health Navigator 09/04/24 documented as of this encounter
--- OUTSIDE RECORDS SUMMARY | 2025-04-04 18:46 | XMS_ITS | Encounter Summary ---
Author Organization [employer] Address [address] [facility] 7t [place] [address] Care Team Providers Care School Patrol Name Role Phone Clari Bauman PLANT TECHNICAL SPECIALIST Primary Care Provider Unavailable Ginny Christopher Unavailable Unavailable Cami Raymond MD Unavailable [phone] Lilly Arndt MD Unavailable Yumiko Costa RD Unavailable Unavailable Cami Raymond MD Primary Care Provider [phone] Shae Ayers Unavailable Unavailable Encounter Details Date Type Department Care Team (Late st Contact Info) Description 04/23/2022 Abstract [place] [facility] MEDICAL [address] [place] [address] Melodie Menendez FNP Social History Tobacco Use [...] 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 Not [...] on filedocumented in this encounter Care Teams School Patrol Relationship Specialty Start Date End Date Clari Bauman FNP PCP - General Family Medicine 03/30/22 12/29/23 Cami Raymond MD [address] [place] [address] PCP - General Family Medicine 12/30/23 Ginny Christopher [facility] Health Worker 07/30/22 5 Cami Raymond MD [address] [place] [address] Referring Physician Family Medicine 08/10/23 Lilly Arndt MD [address] [place] [address] Referring Physician Internal Medicine 08/10/[address] Dietitian Nutrition 08/10/23 Shae Ayers Health Navigator 09/04/24 documented as of this encounter
--- OUTSIDE RECORDS SUMMARY | 2025-04-04 18:46 | XMS_ITS | Encounter Summary ---
Author Organization [employer] Address [address] [facility] 7t [place] [address] Care Team Providers Care Business Practices Supervisor Name Role Phone Clari Bauman SLEEPING CAR PORTER Primary Care Provider Unavailable Ginny Christopher Unavailable Unavailable Cami Raymond MD Unavailable [phone] Lilly Arndt MD Unavailable Yumiko Costa RD Unavailable Unavailable Cami Raymond MD Primary Care Provider [phone] Shae Ayers Unavailable Unavailable Encounter Details Date Type Department Care Team (Late st Contact Info) Description 07/07/2023 Orders Only [facility] MEDICAL [address] [place] [address] Shae Westbrook PA [address] [place], [place] [phone] Dyspnea on exertion Social History Tobacco Use Types Packs/Day Years Used Date Smoking Tobacco: Never Passive Smoke Exposure: Never Smokeless Tobacco: Never Alcohol Use Standard Drinks/Week Comments Never 0 (1 standard drink = 0.6 oz pur e alcohol) Depression Answer Date Recorded Patient Health Questionnaire-9 Score 18 09/29/2022 Housing Stability Answer Date Recorded What is your housing situation today? I have dileep sing 02/03/[address] you li [...] Industry Job Start Date Job End Date [employer] Not on file Not on file Not [...] documented as of this encounter Care Teams Business Practices Supervisor Relationship Specialty Start Date End Date Clari Bauman FNP PCP - General Family Medicine 03/30/22 12/29/23 Cami Raymond MD [address] [place] [address] PCP - General Family Medicine 12/30/23 Ginny Christopher [facility] Worker 07/30/22 5 Cami Raymond MD [address] [place] [address] Referring Physician Family Medicine 08/10/23 Lilly Arndt MD [address] [place] [address] Referring Physician Internal Medicine 08/10/[address] Dietitian Nutrition 08/10/23 Shae Ayers Health Navigator 09/04/24 documented as of this encounter
--- OUTSIDE RECORDS SUMMARY | 2025-04-04 18:46 | XMS_ITS | Clinical Summary ---
Author Organization [facility] Address [address] [facility] [address] [place] [address] Phone Care Team Providers Care Make Up Operator Helper Name Role Phone Kim Lemon MD Unavailable [phone] Bailee Sierra PA-C Unavailable [phone] Lilly Arndt MD Unavailable [phone] Cami Raymond MD Primary Care Provider [...] and feet along with some loss of medical secretary strength and coordination. Eval with Rheum on [...] Overview (03/29/2024): Seen by Rheumtology 05/15/22 @ [facility]. PAM IFA: 1: 320 (07/08). Next follow up with Rheumatology 08/25/22. Irritable bowel syndrome 01/10/2021 Eczema 01/10/2021 Genital herpes 12/13/2019 Adnexal mass 09/22/2018 Assessment & Plan (09/22/2018 7:28 PM EDT): The patient says a CT scan showed a mass on her right ovary that is blocking her ureter. She is being worked up by wood mill supervisor to rule out a malignancy. Ultrasound is planned by wood mill supervisor. Obsessive-compulsive disorder 09/21/2018 Menorrhagia with irregular cycle [...] to fix this for her after her wood mill supervisor/adnexal workup has been taken care of. Biliary dyskinesia 09/21/2018 4 Polyp of gallbladder 09/21/2018 024 Immunizations Immunization Administration Dates Next Due DTP [...] (18-65 YEARS) 2008 PAP SMEAR 09/23/2019 09/22/2016 INFLUENZA VACCINE (#1) 2024 , 01/05/2023, 02/02/2022, Additional history exists COVID-19 VACCINE (2024- season) 2024 Adult Td,Tdap Booster 09/11/2025 09/12/2015 , 09/12/2015, [...] this topic Medical Devices Implanted Type Area Supply Service Worker Device Identifier Shelf Expiration Date Model / Serial / Lot Nodata NODATA Spine Cervical Mesh Graft 4.0x6.0in [address] Polypropylene Echo Ps Positioning System Hydrogel Barrier Hernia Ellipse - [id number] Implanted:Qty: 1 on 04/07/2023 by Kim Lemon MD at [facility] N/A: Abdomen [employer] 10/14/2024 [id number] / / [id number] Insurance [facility] Member Subscriber Plan / Payer (Ef fective 2022-Present) Name:Moraima Dos Santos Relation to Subscriber:Spouse Name:LEVON GOULDGENE R Date of :1976 Address: [address] [place] Payer ID:[id number] (NAIC) Group ID:Not on file Type:PPO Address: [facility] [id number] [place] [id number] [facility] [address] [place] Advance Directives For more information, please contact: [phone] (9AM - 5PM [facility], Wednesday-Wednesday) Documents on File Type Date Recorded Patient Flatwork Washer Expl anation Healthcare Proxy 04/09/2023 4:08 PM * Full Code (Latest Code Status on File) Date Activated Date Inactivated Comments 04/07/2023 7:37 AM Question Answer Comments Code Status Confirmed With: Patient Care Teams Make Up Operator Helper Relationship Specialty Start Date End Date Cami Raymond MD [address] [place] [address] [place] [address] [email or web address] PCP - General Family Medicine 03/29/24 Kim Lemon MD [address] [facility], [address] [place] [address] [email or web address] Historical LMR Provider 02/04/17 Bailee Sierra PA-C [address] [place] [address] [email or web address] Physician Relationship Specialist Hematology 07/24/22 Lilly Arndt MD [address] [place] [phone] [email or web address] Insurance Assigned Provider 11/27/23 Additional Source Comments The information contained in this document represents components of the legal health record. It is not the complete legal health record.[facility]
--- OUTSIDE RECORDS SUMMARY | 2025-04-04 18:46 | XMS_ITS | Clinical Summary ---
Author Organization [facility] Address [address] [place] [address] Care Team Providers Care Pediatric Ophthalmologist Name Role Phone Cami Raymond MD Primary Care Provider [phone] Allergies Active Allergy Reactions Criticality Noted Date Comments Capsaicin Dermatitis 08/05/2022 Cephalexin Anaphylaxis,Hives,Itching High 11/22/2019 Mushroom Anaphylaxis,Swelling High 01/09/2021 Penicillins Anaphylaxis,Hives High 07/28/2005 Other reaction(s): Hives/Urticaria Medications valACYclovir (VALTREX) 500 mg tablet TAKE 1 TABLET BY MOUTH EVERY DAY 05/16/2021 Active LORazepam (ATIVAN) 1 mg tablet TAKE 0.5 - 1 tablet by mouth [address] Once a day 4 day(s) 03/04/[address] (PROTONIX) 40 mg tablet Take 40 mg by mouth daily. 07/21/2021 Active vitamin D3 25 mcg (1,000 unit) capsule Take 2,000 Units by mouth once a day. Active lisdexamfetamin e (Vyvanse) 40 mg capsule Take 40 mg by mouth every morning. Active guanFACINE (TENEX) 1 mg tablet Take 1 mg by mouth at bed time. 01/24/2025 Active tirzepatide (MOUNJARO) 7.5 mg/0.5 mL pen injector Inject 7.5 mg under the skin every 7 days. Active tiZANidine (ZANAFLEX) 4 mg tablet Take 0.5 tablets (2 mg total) by mouth every 8 hours as needed for muscle spasms. 30 tablet 02/07/2025 Active Active Problems Problem Noted Date Diagnosed [...] ureter. She is being worked up by prop cutter to rule out a malignancy. Ultrasound is planned by prop cutter. Last Assessment & Plan: The patient says a CT scan showed a mass on her right ovary that is blocking her ureter. She is being worked up by prop cutter to rule out a malignancy. Ultrasound is planned by prop cutter. UL is being repeated on 05/02/22 Umbilical hernia without obstruction and without gangrene 09/22/2018 Overview (05/21/2022): Last Assessment & Plan: The patient has a reducible umbilical hernia. I would be happy to fix this for her after her prop cutter/adnexal workup has been taken care of. Last Assessment & Plan: The patient has a reducible umbilical hernia. I would be happy to fix this for her after her prop cutter/adnexal workup has been taken care of. Anxiety 09/21/2018 Obsessive-compulsive disorder 09/21/2018 Rectal bleeding 09/21/2018 Morbid obesity 04/14/2013 Encounters Date Type Department Care Team Description 02/16/2025 Telephone [facility] [address] [place] [address] Orthodontist Vice President: Selena Perez MA 02/15/2025 8:30 AM EDT Clinical Support [facility] [address] [place] [address] Orthodontist Vice President: Glendy Berry NP 02/15/2025 DocuSpeak Message [facility] [address] [place] [address] Orthodontist Vice President: Sharifa Sales MA Body Composition Results 02/13/2025 DocuSpeak Message [facility] [address] [place] [address] Orthodontist Vice President: Josefina Escamilla [facility] 02/08/2025 Telephone [facility] [address] [place] [address] Orthodontist Vice President: Josefina Hernandez Telephone Intake, Staff 02/07/2025 10:40 AM EDT Follow-Up [facility] [address] [place], [place] [phone] Orthodontist Vice President: Marcus Quintero DO Hypermobility arthralgia (Primary Dx) from Last 3 Months Family History Medical [...] Sign Reading Time Taken Comments Blood Pressure 104/69 02/15/2025 8:06 AM EDT Pulse 107 02/15/2025 8:06 AM EDT Temperature 36.6 C (97.9 F) 02/07/2025 9:17 AM EDT Respiratory Rate 16 05/21/2022 2:58 PM EST Oxygen Saturation 98% 02/15/2025 8:06 AM EDT Inhaled Oxygen Concentration - - Weight 89.4 kg (197 lb 1.6 oz) 02/15/2025 8:06 A M EDT Height 160 cm (5' 3 ) 02/15/2025 8:06 AM EDT Body Mass Index 34.91 02/15/2025 8:06 AM EDT Plan of Treatment Upcoming Encounters Date Type Department Care Team (Late st Contact Info) Description 05/24/2025 1:30 PM EST Office Visit [facility] [address] [facility] [address] [place] [phone] Shakira Beckwith MD [address] [place] [address] 09/07/2025 10:00 AM EDT Follow-Up [facility] [address] [place] [address] Orthodontist Vice President: Marcus Quintero DO [address] [facility] [place] [address] Health Maintenance Due Date Last Done Comments Cervical Cancer Screening 1990 HIV Screening 1990 HPV and Pap Smear 1990 Hepatitis C Screening 1990 Pap Smear 1990 Alcohol/Substance Use Screening 04/19/2024 Depression Screening and Follow-Up 04/19/2024 Social Drivers of Health Annual Screening 04/19/2024 COVID-19 Vaccine (2024- season) 2024 01/12/2022, 06/06/2020, 05/09/2020 DTaP,Tdap,and Td Vaccines (9 - Td or Tdap) 09/11/2025 09/12/2015, 06/20/2015, 06/15/2013, Additional history exists Varicella Vaccines Completed 09/11/2016, 0 09/15/2015, 09/15/2015, Additional history exists Hepatitis B Vaccines Completed 11/20/2024, 01/29/1998, 11/17/1996, Additional history exists Influenza Vaccine Completed 01/16/2025, , 01/05/2023, Additional history exists Pneumococcal Vaccine: Pediatric (0-5 Years) and At-Risk Patients (6-50 Years) Aged Out No longer eligible based on patient's age to complete this topic Insurance [facility] [place] [address] Care Teams Pediatric Ophthalmologist Relationship Specialty Start Date End Date Cami Raymond MD [address] [facility] [place] [id number] PCP - [facility] Medicine 02/07/25
--- OUTSIDE RECORDS SUMMARY | 2025-04-04 18:46 | XMS_ITS | Encounter Summary ---
Author Organization [employer] Address [address] [facility] 7t [place] [address] Care Team Providers Care Supervisor Vegetable Farming Name Role Phone BowieYazmin pinedaline Unavailable Unavailable Cami Raymond MD Unavailable [phone] Lilly Arndt MD Unavailable Yumiko Costa RD Unavailable Unavailable Cami Raymond MD Primary Care Provider [phone] Shae Ayers Unavailable Unavailable Reason for Visit * Reason Comments Med Refill Encounter Details Date Type Department Care Team (Late st Contact Info) Description 07/11/2024 Refill [facility] MEDICAL [address] [place] [address] Cami Raymond MD [address] [place], [place] [phone] Persistent depressive disorder Social History Tobacco Use [...] 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 Not on file Not on file documented as of this encounter Plan of Treatment Not on file documented as of this encounter Visit Diagnoses Diagnosis Persistent depressive disorder documented in this encounter Additional Health Concerns Assessment Noted Time PHQ-9 Depression Total Score: 17 024 1:12 PM EDT documented as of this encounter Care Teams Supervisor Vegetable Farming Relationship Specialty Start Date End Date Cami Raymond MD [address] [place] [address] PCP - General Family Medicine 12/30/23 Ginny Christopher Community Health Worker 07/30/22 5 Cami Raymond MD [address] [place] [address] Referring Physician Family Medicine 08/10/23 Lilly Arndt MD [address] [place] [address] Referring Physician Internal Medicine 08/10/[address] Dietitian Nutrition 08/10/23 Shae Ayers Health Navigator 09/04/24 documented as of this encounter
--- OUTSIDE RECORDS SUMMARY | 2025-04-04 18:46 | XMS_ITS | Encounter Summary ---
Author Organization [employer] Address [address] [facility] 7t [place] [address] Care Team Providers Care Supervisor Metal Cans Name Role Phone Clari Bauman AIRLINE MECHANIC Primary Care Provider Unavailable Ginny Christopher Unavailable Unavailable Cami Raymond MD Unavailable [phone] Lilly Arndt MD Unavailable Yumiko Costa RD Unavailable Unavailable Cami Raymond MD Primary Care Provider Shae Ayers Unavailable Unavailable Encounter Details Date Type Department Care Team (Late st Contact Info) Description 04/23/2022 Abstract [place] [facility] [address] [place] [address] Melodie Menendez FNP Social History Tobacco Use [...] 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 Not [...] on filedocumented in this encounter Care Teams Supervisor Metal Cans Relationship Specialty Start Date End Date Calri Bauman FNP PCP - General Family Medicine 03/30/22 12/29/23 Cami Raymond MD [address] [place] [address] PCP - General Family Medicine 12/30/23 Ginny Christopher [facility] Health Worker 07/30/22 5 Cami Raymond MD [address] [place] [address] Referring Physician Family Medicine 08/10/23 Lilly Arndt MD [address] [place] [address] Referring Physician Internal Medicine 08/10/[address] Dietitian Nutrition 08/10/23 Shae Ayers Health Navigator 09/04/24 documented as of this encounter
--- OUTSIDE RECORDS SUMMARY | 2025-04-04 18:46 | XMS_ITS | Encounter Summary ---
Author Organization [employer] Address [address] [facility] 7t [place] [address] Care Team Providers Care Children'S Program Coordinator Name Role Phone Cami Raymond MD Unavailable [phone] Lilly Arndt MD Unavailable Yumiko Costa RD Unavailable Unavailable Cami Raymond MD Primary Care Provider [phone] Shae Ayers Unavailable Unavailable Reason for Visit * Reason Comments Med Refill Encounter Details Date Type Department Care Team (Late st Contact Info) Description 02/12/2025 Refill [place] [facility] MEDICAL [address] [place] [address] Cami Raymond MD [address] [place] [address] ADHD, predominantly inattentive type Social History Tobacco [...] 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 on file Not on file documented as of this encounter Miscellaneous Notes * Telephone Encounter - Greer Ohara - 02/13/2025 1:08 PM EDT [facility] Last fill Date: [employer] sold Date: 01.11.25 Last OV: 12.20.24 Next OV: none Last UTOX: 08.30.24 CSA Date: 08.30.24 DNF Date: Due documented in this encounter Plan of Treatment Not on file documented as of this encounter Visit Diagnoses Diagnosis ADHD, predominantly inattentive type Attention deficit disorder without mention of hyperactivity documented in this encounter Additional Health Concerns Assessment Noted Time PHQ-9 Depression Total Score: 17 024 1:12 PM EDT documented as of this encounter Care Teams Children'S Program Coordinator Relationship Specialty Start Date End Date Cami Raymond MD [address] [place] [address] PCP - General Family Medicine 12/30/23 Cami Raymond MD [address] [place] [address] Referring Physician Family Medicine 08/10/23 Lilly Arndt MD [address] [place] [address] Referring Physician Internal Medicine 08/10/[address] Dietitian Nutrition 08/10/23 Shae Ayers Health Navigator 09/04/24 documented as of this encounter
--- OUTSIDE RECORDS SUMMARY | 2025-04-04 18:46 | XMS_ITS | Encounter Summary ---
Author Organization [employer] Address [address] [facility] 7t [place] [address] Care Team Providers Care Technical Support Engineer Name Role Phone Cami Raymond MD Unavailable [phone] Lilly Arndt MD Unavailable Yumiko Costa RD Unavailable Unavailable Cmai Raymond MD Primary Care Provider [phone] Shae Ayers Unavailable Unavailable Encounter Details Date Type Department Care Team (Late st Contact Info) Description 04/02/2025 Orders Only [facility] [address] [place] [address] Cami Raymond MD [address] [place], [place] [phone] Social History Tobacco Use Types Packs/Day Years [...] your housing situation today? 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 Not on file documented as of this encounter Plan of Treatment Not on file documented as of this encounter Procedures Procedure Name Priority Date/Time Associated Diagnosis Comments 25OH VITAMIN D Routine 03/28/2025 documented in this encounter Results * 25 OH Vitamin D (03/28/2025) us Cami Raymond MD LAB BLOOD ORDERABLES Final Res ult documented in this encounter Visit Diagnoses Not on filedocumented in this encounter Additional Health Concerns Assessment Noted Time PHQ-9 Depression Total Score: 17 024 1:12 PM EDT documented as of this encounter Care Teams Technical Support Engineer Relationship Specialty Start Date End Date Cami Raymond MD [address] [place] [address] PCP - General Family Medicine 12/30/23 Cami Raymond MD [address] [place] [address] Referring Physician Family Medicine 08/10/23 Lilly Arndt MD [address] [place] [address] Referring Physician Internal Medicine 08/10/[address] Dietitian Nutrition 08/10/23 Shae Ayers Health Navigator 09/04/24 documented as of this encounter
--- OUTSIDE RECORDS SUMMARY | 2025-04-04 18:46 | XMS_ITS | Encounter Summary ---
Author Organization [employer] Address 75 [facility] 7t [place] [address] Care Team Providers Care Infrastructure Administrator Name Role Phone Clari Bauman LICENSED MORTGAGE LOAN OFFICER Primary Care Provider Unavailable Ginny Christopher Unavailable Unavailable Cami Raymond MD Unavailable [phone] Lilly Arndt MD Unavailable Yumiko Costa RD Unavailable Unavailable Cami Raymond MD Primary Care Provider Shae Ayers Unavailable Unavailable Encounter Details Date Type Department Care Team (Late st Contact Info) Description 04/28/2022 Abstract [facility] MEDICAL [address] [place] [address] Melodie Menendez FNP Social History Tobacco Use [...] 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 Not [...] on filedocumented in this encounter Care Teams Infrastructure Administrator Relationship Specialty Start Date End Date Clari Bauman FNP PCP - General Family Medicine 03/30/22 12/29/23 Cami Raymond MD [address] [place] [address] PCP - General Family Medicine 12/30/23 Ginny Christopher [facility] Health Worker 07/30/22 5 Cami Raymond MD 70 [place] [address] Referring Physician Family Medicine 08/10/23 Lilly Arndt MD 73 [place] [address] Referring Physician Internal Medicine 08/10/[address] Dietitian Nutrition 08/10/23 Shae Ayers Health Navigator 09/04/24 documented as of this encounter
--- OUTSIDE RECORDS SUMMARY | 2025-04-04 18:47 | XMS_ITS | Encounter Summary ---
Author Organization [facility] Address [address] [facility] [address] [place] [address] Phone Care Team Providers Care Side Trimmer Name Role Phone Kim Lemon MD Unavailable [phone] Bailee Sierra PA-C Unavailable [phone] Clari Mcknight NP Primary Care Pr ovider Cami Raymond MD Unavailable Cami Raymond MD Unavailable Lilly Arndt MD Unavailable [phone] Cami Raymond MD Unavailable Lilly Arndt MD Unavailable [phone] Cami Raymond MD Primary Care Provider Encounter Details Date Type Department Care Team (Late st Contact Info) Description 04/07/2023 Procedure Pass OR Admitting Dept - Virtual Department [address] [place], [place] [id number] Social History Tobacco Use Types Packs/Day Years [...] on filedocumented in this encounter Care Teams Side Trimmer Relationship Specialty Start Date End Date Clari Mcknight NP [address] [place] [address] PCP - General Nurse Practitioner 09/24/22 03/28/24 Cami Raymond MD [address] [place] [address] PCP - General Family Medicine 03/29/24 Kim Lemon MD [address] [place] [address] Historical LMR Provider 02/04/17 Bailee Sierra PA-C [address] [place] [address] [email or web address] Physician Civil Engineering Intern Hematology 07/24/22 Cami Raymond MD 70 [place] [address] [email or web address] Insurance Assigned Provider 04/24/23 05/29/23 Cami Raymond MD 70 [place] [address] [email or web address] Insurance Assigned Provider 07/24/23 08/28/23 Lilly Arndt MD [address] [place] [address] [email or web address] Insurance Assigned Provider 08/28/23 10/23/23 Cami Raymond MD [address] [place] [address] [email or web address] Insurance Assigned Provider 10/23/23 11/27/23 Lilly Arndt MD [address] [place] [phone] Insurance Assigned Provider 11/27/23 documented as of this encounter Additional Source Comments The information contained in this document represents components of the legal health record. It is not the complete legal health record.[facility]
--- OUTSIDE RECORDS SUMMARY | 2025-04-04 18:47 | XMS_ITS | Encounter Summary ---
Author Organization [employer] Address 75 [facility] 7t [place] [address] Care Team Providers Care Electrical Systems Engineer Name Role Phone WyattClari Lowry PROJECT ESTIMATOR Primary Care Provider Unavailable Ginny Christopher Unavailable Unavailable Cami Raymond MD Unavailable [phone] Lilly Arndt MD Unavailable Yumiko Costa RD Unavailable Unavailable Cami Raymond MD Primary Care Provider Shae Ayers Unavailable Unavailable Reason for Visit * Reason Comments Med Refill Encounter Details Date Type Department Care Team (Late st Contact Info) Description 12/29/2022 Refill [facility] MEDICAL [address] [place], [place] [phone] Cami Raymond MD [address] [place] [address] Bipolar II disorder, mild, depressed, with mixed [...] 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 * Telephone Encounter - Josselin Jhonathan - 12/29/2022 12:11 PM EDT Rx queued Ready for review and send documented in this encounter Plan of Treatment Not on file documented as of this encounter Visit Diagnoses Diagnosis Bipolar II disorder, mild, depressed, with mixed features, in full remission (CMS/HCC) (HCC) documented in this encounter Additional Health Concerns Assessment Noted Time PHQ-9 Depression Total Score: 023 2:45 PM EDT documented as of this encounter Care Teams Electrical Systems Engineer Relationship Specialty Start Date End Date Clari Bauman FNP PCP - General Family Medicine 03/30/22 12/29/23 Cami Raymond MD [address] [place] [address] PCP - General Family Medicine 12/30/23 Ginny Christopher Community Health Worker 07/30/22 5 Cami Raymond MD [address] [place] [address] Referring Physician Family Medicine 08/10/23 Lilly Arndt MD 73 [place] [address] Referring Physician Internal Medicine 08/10/[address] Dietitian Nutrition 08/10/23 Shae Ayers Health Navigator 09/04/24 documented as of this encounter
--- OUTSIDE RECORDS SUMMARY | 2025-04-04 18:47 | XMS_ITS | Encounter Summary ---
Author Organization [facility] Address [address] [place] [address] Care Team Providers Care Reduction Plant Supervisor Name Role Phone Cami Raymond MD Primary Care Provider [phone] Encounter Details Date Type Department Care Team (Late st Contact Info) Description 10/13/2022 Telephone [facility] [address] [place] [address] Telephone Intake, Staff Social History Tobacco Use [...] call [facility] [place] [phone] 10.13.22 * Telephone Encounter - Wendy Villalobos - 10/13/2022 1:45 PM EDT Patient calling to say she received a call from [facility] to book an appointment for Hypermobility. Please call patient at: [phone] documented in this encounter Plan of Treatment Upcoming Encounters Date Type Department Care Team (Late st Contact Info) Description 05/24/2025 1:30 PM EST Office Visit [facility] [address] [facility] [address] [place] [address] Shakira Beckwith MD [address] [place] [address] 09/07/2025 10:00 AM EDT Follow-Up [facility] [address] [place] [address] Product Management Consultant: Marcus Quintero DO [address] [facility] [place] [address] documented as of this encounter Visit Diagnoses Not on filedocumented in this encounter Care Teams Reduction Plant Supervisor Relationship Specialty Start Date End Date Cami Raymond MD [address] [place] [address] PCP - General [facility] Medicine 02/07/25 documented as of this encounter
--- OUTSIDE RECORDS SUMMARY | 2025-04-04 18:47 | XMS_ITS | Encounter Summary ---
Author Organization [facility] Address [address] [facility] [address] [place] [address] Phone Care Team Providers Care Pathology Transcriptionist Name Role Phone Cassy Clark RN PRIVATE DUTY Unavailable [phone] Sharon Orantes PULLEY MAINTAINER Unavailable Kim Lemon MD Unavailable [phone] Denisse Greenberg MD Unavailable Chance Heart MD Unavailable [phone] Domenico Fuller MD Unavailable Wallace Gutierrez RN PRIVATE DUTY Unavailable Chan Westfall MD Unavailable Vince Ba RN PRIVATE DUTY Unavailable Chan Smith MD Unavailable Tom Quiroz MD, MPH Primary Care Provider + Tom Quiroz MD, MPH Unavailable [phone] Bailee Sierra PA-C Unavailable Clari Mcknight NP Primary Care Pr ovider Cami Raymond MD Unavailable Cami Raymond MD Unavailable Lilly Arndt MD Unavailable [phone] Cami Raymond MD Unavailable Lilly Arndt MD Unavailable [phone] Cami Raymond MD Primary Care Provider Encounter Details Date Type Department Care Team (Latest Contact Info) Description 10/11/2018 Transcribe Orders Virtual Department 30 [place] [address] Ray Couch MD [address] [place] [address] [email or web address] Abdominal pain, left upper quadrant (Primary Dx) [...] Primary documented in this encounter Care Teams Pathology Transcriptionist Relationship Specialty Start Date End Date Tom Quiroz MD, MPH [address] [place] [address] [email or web address] PCP - General Family Medicine 08/30/18 09/23/22 Clari Mcknight NP [address] [place] [address] PCP - General Nurse Practitioner 09/24/22 03/28/24 Cami Raymond MD [address] [place] [address] PCP - General Family Medicine 03/29/24 Cassy Clark, ORLY [address] [place] [address] Historical LMR Provider 02/04/17 04/26/21 Sharon Orantes FNP [address] [place] [address] 7 [place] [address] [email or web address] Historical LMR Provider 02/04/17 04/26/21 Kim Lemon MD [address] [place] [address] Historical LMR Provider 02/04/17 Denisse Greenberg MD [address] [place] [address] [address] [place] [address] Historical LMR Provider 02/04/17 04/26/21 Chance Heart MD [address] [place] [address], [address] [place] [address] Historical LMR Provider 02/04/17 2 Domenico Fuller MD [address] [address] Historical LMR Provider 02/04/17 04/26/21 Wallace Gutierrez CNP [address] [place] [address] [email or web address] Historical LMR Provider 02/04/17 04/26/21 Chan Westfall MD [address] [place] [address] [address] [place] [phone] [email or web address] Historical LMR Provider 02/04/17 04/26/21 Vince Ba, ORLY [address] [facility], [address] [place] [address] [email or web address] Historical LMR Provider 02/04/17 Chan Smith MD [address] [place] [address] [email or web address] Historical LMR Provider 02/04/17 04/26/21 Tom Quiroz MD, MPH [address] [place] [address] [email or web address] Insurance Assigned Provider 11/19/18 09/23/19 Bailee Sierra PA-C 30 [place] [address] [email or web address] Physician Dental Floss Packer Hematology 07/24/22 Cami Raymond MD 70 [place] [address] [email or web address] Insurance Assigned Provider 04/24/23 05/29/23 Cami Raymond MD [address] [place] [address] Insurance Assigned Provider 07/24/23 08/28/23 Lilly Arndt MD [address] [place] [address] Insurance Assigned Provider 08/28/23 10/23/23 Cami Raymond MD [address] [place] [address] Insurance Assigned Provider 10/23/23 11/27/23 Lilly Arndt MD [address] [place] [address] Insurance Assigned Provider 11/27/23 documented as of this encounter Additional Source Comments The information contained in this document represents components of the legal health record. It is not the complete legal health record.[facility]
--- OUTSIDE RECORDS SUMMARY | 2025-04-04 18:48 | XMS_ITS | Clinical Summary ---
Author Organization [employer] Address [address] [facility] 7t [place] [address] Care Team Providers Care Bowling Alley Manager Name Role Phone Cami Raymond MD Unavailable [phone] Lilly Arndt MD Unavailable Yumiko Costa RD Unavailable Unavailable Cami Raymond MD Primary Care Provider [phone] Shae Ayers Unavailable Unavailable Allergies Active Allergy [...] with breakfast and with evening meal. 10/20/19 23 Active acetaminophen (Tylenol) 325 MG tablet Take 650 mg by mouth every 4 (four) hours if needed. 04/07/20 23 Active aspirin 81 MG chewable tablet Chew 81 mg in the morning. Active ibuprofen 200 MG tablet Take 400 mg by mouth every 6 (six) hours if needed. 04/07/20 23 Active ARIPiprazole (Abilify) 5 MG tabletIndication s:Persistent depressive disorder Take 1 tablet (5 mg) by mouth Once per day. 90 tablet 10/05/19 25 Active pantoprazole (ProtoNix) 40 MG EC tabletIndication s:Gastroesophage al reflux disease without esophagitis TAKE 1 TABLET BY MOUTH BEFORE BREAKFAST 90 tablet 1 10/19/19 25 Active levothyroxine (Synthroid, Levoxyl) 50 MCG tabletIndication s:Persistent depressive disorder Take 1 tablet (50 mcg) by mouth before breakfast. 90 tablet 01/31/20 25 026 Active valACYclovir (Valtrex) 500 MG tabletIndication s:Herpes virus disease Take 1 tablet (500 mg) by mouth in the morning. 90 tablet 01/31/20 25 Active Zepbound 10 MG/0.5ML solution auto-injectorInd ications:Body mass index (BMI) of 40.1 to 44.9 in adult (HCC) Inject 0.5 mL (10 mg) under the skin 1 (one) time per week. 2 mL 1 02/14/20 25 025 Active LORazepam (Ativan) 1 MG tabletIndication s:Anxiety Take 1 tablet (1 mg) by mouth if needed each day for anxiety. 30 tablet 5 3:41 PM EST 03/20/20 25 Active amphetamine-dext roamphetamine (Adderall) 5 MG tabletIndication s:Persistent depressive disorder Take 1 tablet (5 mg) by mouth with lunch. 30 tablet 5 3:41 PM EST 03/20/20 25 026 Active lisdexamfetamine (Vyvanse) 60 MG capsuleIndicatio ns:ADHD, predominantly inattentive type Take 1 capsule (60 mg) by mouth in the morning. 30 capsule 5 3:41 PM EST 03/20/20 25 026 Active guanFACINE (Tenex) 1 MG tablet Take one (1) tablet by mouth at bedtime 30 tablet 03/23/20 25 Active guanFACINE (Tenex) 1 MG tablet Take one (1) tablet by mouth at bedtime 30 tablet 1 01/25/20 25 025 Discontinued LORazepam (Ativan) 1 MG tabletIndication s:Anxiety Take 1 tablet (1 mg) by mouth if needed each day for anxiety. 30 tablet 02/14/20 25 025 Discontinued(R eorder (will not trigger notification to Pharmacy)) amphetamine-dext roamphetamine (Adderall) 5 MG tabletIndication s:Persistent depressive disorder Take 1 tablet (5 mg) by mouth with lunch. 30 tablet 02/14/20 25 025 Discontinued(R eorder (will not trigger notification to Pharmacy)) lisdexamfetamine (Vyvanse) 60 MG capsuleIndicatio ns:ADHD, predominantly inattentive type Take 1 capsule (60 mg) by mouth in the morning. 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 Has been gaining weight and has not [...] ANOOP to have her on board if Elek needs anything else/changes in meds. I discussed [...] of SOB. If indicated, refer to a auto body estimator or machinist first class for specialized assessment and management. Encouraged continued [...] the parking lot to her work at [employer] and she is short of breath. She [...] epressed, with mixed features, in full remission (CMS/[facility]) 10/27/2022 Assessment & Plan (06/09/2023 9:57 AM EST): Increasing concerns of depression due to grieving the loss of her mom. 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 Eval with Rheum on [...] to the right spicer. Referral made to [facility] hematology/oncology 1/27/23. Palpitations 04/23/2022 Overview (05/23/2022): Follow up eval with Heart and vascular (Dr. Carlos Enrique Hairston) and cardiology on 07/01/22 ([facility]) Assessment & Plan (02/17/2023 11:08 AM EDT): Ongoing. States getting worse. Having difficulty with dyspnea on exertion. Stating they are waking her up at night. Ordered stress test. Referral to Cardiology. Herpes virus disease 03/30/2022 Chiari malformation type I (CMS/HCC) 03/30/2022 Overview (02/23/2023): Arnold-Chiari malformation w/ tonsillar [...] Overview (08/05/2022): Seen by Rheumtology 05/15/22 @ [facility]. PAM IFA: 1: 320 (07/08). Next follow [...] to fix this for her after her clinical assessment manager/adnexal workup has been taken care of. Iron [...] disorder, r ecurrent severe without psychotic features (CMS/HCC) 03/30/202207/2022 Cystic acne 03/30/2022 05/23/2022 Eczema 01/10/2021 05/23/2022 Mood disorder 01/10/2021 05/23/2022 Obsessive-compulsive disorder 09/21/2018 05/23/2022 Anxiety 09/21/2018 05/23/2022 Herpes 09/21/2018 05/23/2022 Right upper quadrant abdominal pain 09/21/2018 05/23/2022 Overactive child 09/21/2018 05/23/2022 Menorrhagia with irregular cycle 09/21/2018 05/23/2022 Irregular bleeding 09/21/2018 3 Encounters Date Type Department Care Team Description 04/02/2025 Orders Only [facility] [address] [place] [address] Cami Raymond MD 03/23/2025 Refill [facility] MEDICAL [address] [place] [address] Cami Raymond MD 03/19/2025 Refill [facility] MEDICAL [address] [place] [address] Cami Raymond MD Anxiety; Persistent depressive disorder; ADHD, predominantly inattentive type 03/05/2025 Telephone [facility] MEDICAL [address] [place] [address] Cami Raymond MD Prior Authorization (zepbound) 03/05/2025 Telephone [facility] [address] [place] [address] Cami Raymond MD Prior Authorization (Weight log) 02/13/2025 Telephone [facility] [address] [place] [address] Cami Raymond MD Prior Authorization (Zepbound) 02/13/[address] [address] Cami Raymond MD Persistent depressive disorder (Primary Dx); Anxiety; ADHD, predominantly inattentive type 02/12/[address] [address] Cami Raymond MD ADHD, predominantly inattentive type 01/30/[address] [address] Cami Raymond MD Persistent depressive disorder; Herpes virus disease 01/22/[address] [address] Cami Raymond MD 01/09/[address] [address] Cami Raymond MD Anxiety; ADHD, predominantly inattentive type; Persistent depressive disorder from Last 3 Months Immunizations Immunization Administration [...] 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 file Not [...] 11/15/2024 4:49 PM EDT Plan of Treatment Health Maintenance Due Date Last Done Comments HIV Screening 1990 Alcohol/Substance Use Screening 2002 Family Planning (PISQ) 2005 Hepatitis C Screening 2008 Lipid Panel 08/19/2022 08/19/2017 Dental Oral Exam 03/27/2023 09/24/2022 SDOH Screening 04/23/2023 04/23/2022 Dental X-Ray: Bitewings 09/26/2023 09/24/2022 Dental Prophylaxis 10/29/2023 04/29/2023, 10/08/2022 Depression Monitoring 03/04/2024 09/02/2023, 024 COVID-19 Vaccine ( season) 2024 06/06/2020, 05/09/2020 Disability Screening 05/07/2025 05/07/2024 Tobacco Screening 05/08/2025 [...] Completed 11/20/2024, 07/30/2023, 01/29/1998, Additional history exists Influenza Vaccine Completed 01/16/2025, , 01/05/2024, Additional history exists Hepatitis A Vaccines Aged [...] Diagnosis Comments 25OH VITAMIN D Routine 03/28/2025 HEPATITIS B SURFACE AB QNT Routine 07/30/2023 2:42 PM EDT Full PROPHYLAXIS - ADULT Routine 04/29/2023 9:40 AM EST INTRAORAL - COMPLETE SERIES OF RADIOGRAPHIC IMAGES Routine 09/24/2022 2:00 PM EDT COMPREHENSIVE ORAL EVALUATION - NEW OR ESTABLISHED PATIENT Routine 09/24/2022 2:00 PM EDT LIPID PANEL, STANDARD Routine 08/19/2017 from Last 3 Months or Most Recently Relevant to Health Maintenance Results * 25 OH Vitamin D (03/28/2025) us Cami Raymond MD LAB BLOOD ORDERABLES Final Res ult * Hepatitis B Surface Antibody, Quantitative (07/30/2023 2:42 PM EDT) Hepatitis B Surf Ab Quant >1000.0 Immunity>9 .9 mIU/mL [facility] 1 Comment: Status of Immunity Anti-HBs Level Inconsistent with Immunity 0.0 - 9.9 Consistent with Immunity >9.9 07/30/2023 2:42 PM EDT 07/30/2023 Narrative [facility] 1 - 07/31/2023 10:05 AM EDT Performed at: 01 - [facility] [address] [id number] Social Work Supervisor: Ludivina Rivas MD, Phone: [phone] Clari Bauman FOAM CASTER LAB BLOOD ORDERABLES F inal Result [facility] 1 * Lipid Panel, Standard (08/19/2017) [facility] Triglycerides 100 40 - 160 mg/dL Cholesterol 183 0 - 200 mg/dL HDL Cholesterol 54 35 - 70 mg/dL LDL Cholesterol 109 mg/dL Blood Venous blood specimen / Unknown Historical Provider LAB BLOOD ORDERABLES Ally l Result from Last 3 Months or Most Recently Relevant to Health Maintenance Insurance [facility] POS DENTAL - HSN FULL (MEDICAID[place] STAND ADULT Advance Directives Documents on File Type Date Recorded Patient Skate Shop Attendant Expl anation HealthCare Proxy 08/26/2023 1:55 PM HCP Care Teams Bowling Alley Manager Relationship Specialty Start Date End Date Cami Raymond MD [address] [place] [address] PCP - General Family Medicine 12/30/23 Cami Raymond MD [address] [place] [address] Referring Physician Family Medicine 08/10/23 Lilly Arndt MD [address] [place] [address] Referring Physician Internal Medicine 08/10/[address] Dietitian Nutrition 08/10/23 Shae Ayers Health Navigator 09/04/24
--- OUTSIDE RECORDS SUMMARY | 2025-04-04 18:48 | XMS_ITS | Encounter Summary ---
Author Organization [employer] Address [address] [facility] 7t [place] [address] Care Team Providers Care Frozen Meat Cutter Name Role Phone Clari Bauman Primary Care Provider Unavailable Ginny Christopher Unavailable Unavailable Cami Raymond MD Unavailable [phone] Lilly Arndt MD Unavailable Yumiko Costa RD Unavailable Unavailable Cami Raymond MD Primary Care Provider [phone] Shae Ayers Unavailable Unavailable Encounter Details Date Type Department Care Team (Late st Contact Info) Description 02/18/2023 Orders Only [facility] [address] [place] [address] Clari Bauman FNP Social History Tobacco Use [...] 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 Not [...] documented as of this encounter Care Teams Frozen Meat Cutter Relationship Specialty Start Date End Date Clari Bauman FNP PCP - General Family Medicine 03/30/22 12/29/23 Cami Raymond MD [address] [place] [address] PCP - General Family Medicine 12/30/23 Ginny Christopher Community Health Worker 07/30/22 5 Cami Raymond MD [address] [place] [address] Referring Physician Family Medicine 08/10/23 Lilly Arndt MD [address] [place] [address] Referring Physician Internal Medicine 08/10/[address] Dietitian Nutrition 08/10/23 Shae Ayers [facility] Navigator 09/04/24 documented as of this encounter
--- NOTE | 2025-04-10 11:32 | HO.ANESPROP2 ---
Documented by User: Valery Olivas NP 04/10/25 11:32 HPI - Anesthesia Eval Consult details Narrative: 34 yr old female for Upper Endoscopy and Colonoscopy Anesthesia Pre-Procedure Meds Is the patient on any of the following meds?: GLP1/DPP4 PMFSH Active Problems Active Problems: All Active Problems (Updated 12/13/24 @ 14:58 by Loretta Cabello, [facility]) PAM positive (Acute) Acne (Acute) IBS (irritable bowel syndrome) (Acute) Mastodynia (Acute) Fibrocystic breast changes of both breasts (Acute) Past Medical History Medical History (Updated 04/13/25 @ 09:29 by Dory Hayes RN) Isidra-Danlos disease Lupus (systemic lupus erythematosus) Malignant hyperthermia susceptibility PTSD (post-traumatic stress disorder) Bipolar 2 disorder Anxiety ADHD IBS (irritable bowel syndrome) Uterine neoplasm Family History Family History Maternal Grandmother Uterine cancer Breast cancer Paternal Grandmother Uterine cancer Maternal Grandfather Prostate cancer Lung cancer Father No problems noted. Family history of problems with anesthesia: No Surgical History Surgical History Hx of esophagogastroduodenoscopy Hx of colonoscopy H/O cervical discectomy History of hysterectomy History of cholecystectomy History of Problems with Anesthesia: No Social History Social History Alcohol intake: current Alcohol intake frequency: does not drink Patient Tobacco Use Status: Never used Tobacco Use of substances other than those prescribed or required for medical reasons: No Are you DNR?: No Advance Directives: No Advance Directives Information Provided: Yes Patient : No (hysterectomy) Meds Allergies Allergy/AdvReac Type Severity Reaction Status Date / Time capsaicin Allergy Mild Hives Verified 04/13/25 08:54 mushroom Allergy Mild Anaphylaxis Verified 04/13/25 08:54 Penicillins Allergy Mild Anaphylaxis Verified 04/13/25 08:54 cephalexin (From Keflex) Allergy Unknown Verified 04/13/25 08:54 Home Medications ?Medication ?Instructions ?Recorded ?Confirmed ?Last Taken ?Type cholecalciferol (vitamin D3) 50 50 mcg PO DAILY 07/29/20 04/13/25 Unknown History mcg (2,000 unit) capsule valacyclovir 500 mg tablet 500 mg PO DAILY 07/29/20 04/13/25 Unknown History dextroamphetamine-amphetamine 5 mg 1 tab PO DAILY 12/13/24 04/13/25 Unknown History tablet guanfacine 1 mg tablet 1 mg PO BEDTIME 12/13/24 04/13/25 Unknown History levothyroxine 50 mcg tablet 50 mcg PO QAM 12/13/24 04/13/25 Unknown History lisdexamfetamine 60 mg capsule 60 mg PO QAM 12/13/24 04/13/25 Unknown History lorazepam 1 mg tablet 1 mg PO DAILY PRN anxiety 12/13/24 04/13/25 Unknown History spironolactone 50 mg tablet 100 mg PO DAILY 03/28/25 04/13/25 Unknown History tirzepatide (weight loss) 10 10 mg subcut QWEEK 03/28/25 04/13/25 Unknown History mg/0.5 mL subcutaneous pen injector (Zepbound) Assessment and Plan Final Anesthetic Review Family History of Problems with Anesthesia: No History of Problems with Anesthesia: No Documented by User: Remy Trejo MD 04/13/25 10:01 HPI - Anesthesia Eval Anesthesia Pre-Procedure Meds If yes to any meds - educate patient: Pt education - increased risk of aspiration and/or euvolemic DKA [facility] Past Medical History Medical History (Updated 04/13/25 @ 09:29 by Dory Hayes RN) Isidra-Danlos disease Lupus (systemic lupus erythematosus) Malignant hyperthermia susceptibility PTSD (post-traumatic stress disorder) Bipolar 2 disorder Anxiety ADHD IBS (irritable bowel syndrome) Uterine neoplasm Functional capacity: independent ambulation Family History Family History Maternal Grandmother Uterine cancer Breast cancer Paternal Grandmother Uterine cancer Maternal Grandfather Prostate cancer Lung cancer Father No problems noted. Surgical History Surgical History Hx of esophagogastroduodenoscopy Hx of colonoscopy H/O cervical discectomy History of hysterectomy History of cholecystectomy Social History Social History Alcohol intake: current Alcohol intake frequency: does not drink Patient Tobacco Use Status: Never used Tobacco Use of substances other than those prescribed or required for medical reasons: No Are you DNR?: No Advance Directives: No Advance Directives Information Provided: Yes Patient : No (hysterectomy) Meds Allergies Allergy/AdvReac Type Severity Reaction Status Date / Time capsaicin Allergy Mild Hives Verified 04/13/25 08:54 mushroom Allergy Mild Anaphylaxis Verified 04/13/25 08:54 Penicillins Allergy Mild Anaphylaxis Verified 04/13/25 08:54 cephalexin (From Keflex) Allergy Unknown Verified 04/13/25 08:54 Home Medications ?Medication ?Instructions ?Recorded ?Confirmed ?Last Taken ?Type cholecalciferol (vitamin D3) 50 50 mcg PO DAILY 07/29/20 04/13/25 Unknown History mcg (2,000 unit) capsule valacyclovir 500 mg tablet 500 mg PO DAILY 07/29/20 04/13/25 Unknown History dextroamphetamine-amphetamine 5 mg 1 tab PO DAILY 12/13/24 04/13/25 Unknown History tablet guanfacine 1 mg tablet 1 mg PO BEDTIME 12/13/24 04/13/25 Unknown History levothyroxine 50 mcg tablet 50 mcg PO QAM 12/13/24 04/13/25 Unknown History lisdexamfetamine 60 mg capsule 60 mg PO QAM 12/13/24 04/13/25 Unknown History lorazepam 1 mg tablet 1 mg PO DAILY PRN anxiety 12/13/24 04/13/25 Unknown History spironolactone 50 mg tablet 100 mg PO DAILY 03/28/25 04/13/25 Unknown History tirzepatide (weight loss) 10 10 mg subcut QWEEK 03/28/25 04/13/25 Unknown History mg/0.5 mL subcutaneous pen injector (Zepbound) Exam Exam Date and Time: 04/13/25 Airway Mallampati Class: II TM Dist: >3cm Neck ROM: Full Heart: ok Lungs: ok Other: ok Assessment and Plan Assessment Anesthesia Assessment: Anesthesia Plan Discussed and Chart Reviewed Final Anesthetic Review NPO: Yes ASA Class: III Final Preanesthetic Review: No Changes in Pt Med Stat, Meds/Allgs Chart Reviewed, Consent Obtained/Reviewed and Anes Risks/Benef Reviewed Procedure Risk: Low Assessment/Block/Sedation in SS: Assess/Block/Sedation-SS Anesthetic Plan Anesthetic Plan: MAC: Disposition: Standard PACU
[2025-04-10 14:02] VITALS: BMI 32.6
--- NOTE | 2025-04-13 08:00 | MHC.SHP ---
Pre-Procedural Eval Section A - 24 Hr Update-Section A only Date of Service: 04/13/25 Section B - Complete if H&P > 30 days Chief Complaint: Surveillance of colon polyps, GERD Relevant Family History (Specify if Yes): No Relevant Social History: None Present Medications: see Short Stay Collaborative assessment Medical History: Significant History (IBS (irritable bowel syndrome) Uterine neoplasm) History of Previous Operations: Relevant previous surgery/procedure and date(s) (Hx of esophagogastroduodenoscopy Hx of colonoscopy H/O cervical discectomy History of hysterectomy History of cholecystectomy) Allergies: Allergies Allergy/AdvReac Type Severity Reaction Status Date / Time mushroom Allergy Mild Anaphylaxis Verified 03/28/25 09:22 Penicillins Allergy Mild Anaphylaxis Verified 03/28/25 09:22 cephalexin (From Keflex) Allergy Unknown Verified 03/28/25 09:22 Review of Systems Sugical H&P ROS: Negative: Constitution, Cardiovascular, Respiratory and Gastrointestinal Exam Surgical H&P Exam: Normal: Heart, Normal: Lungs, Normal: Extremities and Normal: Abdomen Plan Diagnosis/Plan: Unchanged I have reviewed the history and physical and performed a pertinent physical examination on my patient. No changes have occurred unless specified. Time Spent With Patient Time: Total time managing care of this patient today ____ minutes.
[2025-04-13 08:55] VITALS: BMI 32.1
[2025-04-13 09:07] VITALS: BP 128/78; PULSE 86; RESP 20; TEMP 36.4; O2SAT 100
[2025-04-13] MEDS: Lactated Ringers 1,000 ML 100 ML IVCONT (09:22)
--- NOTE | 2025-04-13 10:34 | HO.OPN-COLON ---
Colonoscopy Operative Note Operative Note Date of Service: 04/13/25 Narrative: FLEXIBLE TRANSORAL UPPER GASTROINTESTINAL ENDOSCOPY WITH BIOPSIES AND COLONOSCOPY TILL CECUM WITH BIOPSIES, SNARE POLYPECTOMY, SUBMUCOSAL INJECTION AND HEMOCLIP PLACEMENT Pre-op diagnosis: Surveillance for colon polyps, GERD, abdominal pain Post-op diagnosis: GERD, Gastritis, gastric polyps, Colon Polyps, Diverticulosis, hemorrhoids Endoscopist:? Denisha Long MD Anesthesia:?MAC UPPER ENDOSCOPY Consent: Indications for the procedure and potential complications of bleeding, perforation, reaction to medications and missed diagnosis were discussed with the patient and informed consent was obtained. Instrument: Olympus GIF H 190 mid size upper endoscope Monitoring: Vital signs and clinical assessment, continuous EKG monitoring, Pulse oximetry, Carbon Dioxide monitoring and blood pressure monitoring were done throughout the procedure. Procedure: The patient was placed in the left lateral decubitis position and pre-procedure medications were administered and a bite block was placed. The endoscope was inserted into the mouth and advanced under direct vision to the third part of duodenum. A careful inspection was made as the upper endoscope was withdrawn including a retroflexed examination of the proximal stomach; Findings and interventions are described below. Findings: Larynx: Normal Esophagus: GE junction at 35 cms. No esophagitis Irregular Z line - biopsies obtained to check for Sanchez's. Stomach: A few 3-4 mm benign appearing polyps in the gastric body - biopsied. Mild diffuse gastric erythema - biopsies were obtained from the gastric body and antrum. Grade 2 flap valve on retroflexed examination of the cardia. Duodenum: Normal bulb and descending duodenum Biopsies were obtained from descending duodenum to check for celiac sprue Intervention: Biopsies as noted above COLONOSCOPY PROCEDURE NOTE Instrument: Olympus PCF H 190 L variable stiffness pediatric colonoscope Monitoring: Vital signs and clinical assessment, intermittent blood pressure monitoring, continuous EKG monitoring, Pulse oximetry and Carbon Dioxide monitoring were done throughout the procedure. Please see anesthesia flowsheet. Colon withdrawl time was 21 minutes. Procedure: The patient was placed in the left lateral decubitis position and pre-procedure medications were administered. After a digital rectal examination of the ano-rectum, the video colonoscope was inserted into the rectum and advanced through the colon to the cecum. The colonoscope was slowly withdrawn in a retrograde panoramic fashion and the colon mucosa was carefully examined including a retroflexed view of the rectum. Findings and interventions are described below. Procedure Difficulty: without difficulty Findings: Terminal Ileum: Not evaluated Cecum: Normal Ascending Colon: A 12- 15 mm flat polyp in the AC at 85 cms. Polyp was raised with 3 cc of Ele[place] and removed with a hot snare. Polypectomy site was closed with 1 hemoclip Transverse Colon: Normal Descending Colon: Normal Sigmoid Colon: Normal Rectum: Normal Ano-rectum: Moderate internal hemorrhoids Colon preparation: Excellent, after some irrigation. [place] Bowel Preparation Scale Right colon; 3 Transverse colon: 3 Left colon; 3 (0 = Unprepared colon segment with mucosa not seen due to solid stool that cannot be cleared. 1 = Portion of mucosa of the colon segment seen, but other areas of the colon segment not well seen due to staining, residual stool and/or opaque liquid. 2 = Minor amount of residual staining, small fragments of stool and/or opaque liquid, but mucosa of colon segment seen well. 3 = Entire mucosa of colon segment seen well with no residual staining, small fragments of stool or opaque liquid) Impression and Post Procedure Diagnosis: Endoscopy Findings: ESOPHAGUS: Irregular Z line - biopsies obtained to check for Sanchez's. STOMACH: Mild diffuse gastritis and benign-appearing gastric polyps DUODENUM: Normal - biopsied to check for celiac sprue. Colonoscopy Findings: One medium sized polyp was removed (prominent lymphoid aggregate on biopsy) Random biopsies were obtained from right and left colon to check for microscopic colitis. Moderate hemorrhoids on retroflexed exam. Plan: Pt has a FU appointment on 04/25/25 with Nette Cabello NP Repeat Colonoscopy in 3-5 years if polyps are adenomatous and 10 year if polyps are hyperplastic. A summary of above findings and relevant handouts were given to the patient. BIOPSIES SHOWED: A. Small bowel, biopsy: Small bowel mucosa with preserved villi and no specific change; no evidence of celiac disease. B. Gastric antrum, biopsy: Gastric antral mucosa with focal lamina propria hemorrhage, mild reactive changes, and focal minimal chronic inactive inflammation; negative for H. pylori, intestinal metaplasia and dysplasia. C. Gastric body, biopsy: Gastric body mucosa with focal lamina propria hemorrhage and focal minimal chronic inactive inflammation; negative for H. pylori, intestinal metaplasia and dysplasia. D. Gastric polyp: Fundic gland polyp with focal minimal chronic inactive inflammation; negative for H. pylori, intestinal metaplasia and dysplasia. E. Gastroesophageal junction, biopsy: Squamocolumnar mucosa with mild chronic inflammation; negative for intestinal metaplasia and dysplasia. F. Colon, ascending at 85 cm, polyp: Colonic mucosa with prominent lymphoid aggregates and no specific change; no adenomatous dysplasia seen. G. Colon, right, biopsy: Colonic mucosa with no specific change; no evidence of microscopic colitis. H. Colon, left, biopsy: Colonic mucosa with no specific change; no evidence of microscopic colitis Letter sent to the patient with biopsy results. Patient was placed on the colonoscopy recall list for repeat colonoscopy in 10 years.
[2025-04-13 11:10] VITALS: BP 89/42; PULSE 91; RESP 16; TEMP 36.2; O2SAT 100
[2025-04-13 11:25] VITALS: BP 116/67; PULSE 95; RESP 16; TEMP 36.1; O2SAT 100
== END 2025-04-13 11:59 | disposition home or self-care (01) ==
PROVIDERS: PCP Family Medicine; Visit Provider Internal Medicine Gastroenterology
PROC: (CPT 45380; principal; 2025-04-13 10:00)
DX: Z12.11 Encounter for screening for malignant neoplasm of colon (principal); K58.9 Irritable bowel syndrome, unspecified; R10.13 Epigastric pain; R14.0 Abdominal distension (gaseous); K59.09 Other constipation; K57.30 Diverticulosis of large intestine without perforation or abscess without bleeding; K64.8 Other hemorrhoids; K31.7 Polyp of stomach and duodenum; K63.5 Polyp of colon
CPT/HCPCS: 45380; 45385; 45381; 43239; 88305; 88313; 88342; J2003; J2371; J2704; J3010

== ENCOUNTER → 2025-04-13 08:05 | Outpatient (BNV) | payer OTHER, MEDICAID, SELFPAY | PROVIDERS: PCP Family Medicine; Visit Provider Internal Medicine Gastroenterology | DX: Z12.11 Encounter for screening for malignant neoplasm of colon (principal); K63.5 Polyp of colon; K64.8 Other hemorrhoids; K21.9 Gastro-esophageal reflux disease without esophagitis; K31.7 Polyp of stomach and duodenum; K29.70 Gastritis, unspecified, without bleeding | CPT/HCPCS: 43239; 45385 ==